=== PATIENT | female | born 1945 | race Caucasian/White ===

== ENCOUNTER 2016-10-17 20:28 | Observation (INO) | payer MEDICARE, OTHER ==
[2016-10-17 22:43] LABS: BASOPHIL 1.1 % (0-2.0); EOSINOPHIL 3.3 % (0-4.5); MCH 28.5 pg (25.7-33.7); MCHC 33.4 g/dl (32.0-36.0); MEAN CELL VOLUME 85.4 fl (80-96); MEAN PLT VOLUME 8.3 fl (7.5-11.1); NEUTROPHILS 50.4 % (42.8-82.8); PLATELET COUNT 272 K/MM3 (134-434); RDW 13.3 % (11.6-15.6); WHITE BLOOD COUNT 8.6 K/mm3 (4.0-10.0)
[2016-10-17 23:21] LABS: ALBUMIN 3.6 g/dl (3.4-5.0); ALK PHOS 131 U/L (45-117); ANION GAP 7 (8-16); BILIRUBIN,TOTAL 0.6 mg/dL (0.2-1.0); CALCIUM 9.2 mg/dL (8.5-10.1); CO2 30 mmol/L (21-32); CREATININE 0.8 mg/dL (0.55-1.02); GLUCOSE,RANDOM 107 mg/dL (74-106); SGOT/AST 22 U/L (15-37); SGPT/ALT 21 U/L (12-78); TOT PROT 6.8 g/dl (6.4-8.2)
--- NOTE | 2016-10-17 23:24 | PDOC ---
History of Present Illness - General Chief Complaint: RX Refill Stated Complaint: INFECTION Time Seen by Provider: 10/17/16 21:22 - History of Present Illness Initial Comments: 10/17/16 23:11 CHIEF COMPLAINT: requires IV antibiotics HISTORY OF PRESENT ILLNESS: 70 yo F presents to ED for IV antibiotics via PICC line. Patient reports that she has had multiple surgeries in the past two months. She reports that on August 08 she fell and she required surgery on the front side of her neck. On September 12 she had a surgery to her cervical spine, but "it became infected" and she had another surgery "to fix it" on October 03. She states that she was admitted to [facility] for 10 days and a PICC line was placed on October 13 so she could receive 7 weeks of IV antibiotics at home. However she has been having problems with the visiting nurses services and they have not been going to her house; therefore she has only received 1 dose of the antibiotics since her discharge from [facility]. AST MEDICAL HISTORY: Denies past medical history FAMILY HISTORY: Denies SOCIAL HISTORY: Denies tobacco, alcohol, illicit drug use. SURGICAL HISTORY: Denies ALLERGIES: No known drug allergies REVIEW OF SYSTEMS General/Constitutional: Denies fever or chills. Denies weakness, weight change. HEENT: Denies change in vision. Denies ear pain or discharge. Denies sore throat. Cardiovascular: Denies chest pain or shortness of breath. Respiratory: Denies cough, wheezing, or hemoptysis. Gastrointestinal: Denies nausea, vomiting, diarrhea or constipation. Denies rectal bleeding. Genitourinary: Denies dysuria, frequency, or change in urination. Musculoskeletal: Denies joint or muscle swelling or pain. Denies neck or back pain. Skin and breasts: Denies rash or easy bruising. Neurologic: Denies headache, vertigo, loss of consciousness, or loss of sensation. PHYSICAL EXAM General Appearance: Well-appearing, appropriately dressed. No apparent distress , no intoxication. HEENT: EOMI, PERRLA, normal ENT inspection, normal voice, TMs normal, pharynx normal. No conjunctival pallor. No photophobia, scleral icterus. Neck: Erythema to operative site. Supple. Trachea midline. No tenderness, rigidity, carotid bruit, stridor, lymphadenopathy, or thyromegaly. Respiratory/Chest: Lungs CTAB. Cardiovascular: RRR. S1, S2. Gastrointestinal/Abdominal: Normal bowel sounds. Abdomen soft, non-distended. No tenderness or rebound tenderness. No organomegaly, pulsatile mass, guarding , hernia, hepatomegaly, splenomegaly. Musculoskeletal/Extremities: Normal inspection. FROM of all extremities, normal capillary refill. Pelvis Stable. No CVA tenderness. No tenderness to extremities, pedal edema, swelling, erythema or deformity. Integumentary: Appropriate color, dry, warm. 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 Fully oriented, alert. Appropriate mood/affect. Motor strength 5/5. No appreciable EOM palsy, facial droop or sensory deficit. Past History - Past Medical History Allergies/Adverse Reactions: Allergies Allergy/AdvReac Type Severity Reaction Status Date / Time No Known Drug Allergies Allergy Verified 10/17/16 22:04 Home Medications: Ambulatory Orders Atorvastatin Ca [Lipitor] 20 mg PO HS 10/17/16 Diazepam [Valium] 5 mg PO DAILY 10/17/16 Docusate Sodium [Colace -] 100 mg PO DAILY 10/17/16 Fluoxetine HCl [Prozac] 20 mg PO DAILY 10/17/16 Hydrochlorothiazide [Hctz -] 12.5 mg PO DAILY 10/17/16 Lactulose (Oral Use) [Cephulac -] 20 gm PO DAILY 10/17/16 Levothyroxine [Synthroid -] 75 mcg PO DAILY 10/17/16 Pantoprazole Sodium [Protonix] 40 mg PO DAILY 10/17/16 Zolpidem Tartrate [Ambien] 10 mg PO DAILY 10/17/16 Diabetes: No (hypoglycemia) GI Disorders: Yes (GASTRITIS) HTN: Yes Thyroid Disease: Yes - Surgical History Abdominal Surgery: Yes Cholecystectomy: Yes - Immunization History Immunization Up to Date: Yes - Psycho/Social/Smoking Cessation Hx Anxiety: No Suicidal Ideation: No Smoking Status: No Smoking History: Never smoked Have you smoked in the past 12 months: No Number of Cigarettes Smoked Daily: 0 Hx Alcohol Use: No Drug/Substance Use Hx: No *Physical Exam - Vital Signs Last Vital Signs Temp Pulse Resp BP Pulse Ox 98.1 F 91 H 18 125/65 98 10/17/16 20:50 10/17/16 20:50 10/17/16 20:50 10/17/16 20:50 10/17/16 20:50 ED Treatment Course - LABORATORY CBC & Chemistry Diagram: 10/17/16 22:35 10/17/16 22:35 - ADDITIONAL ORDERS Additional order review: Laboratory Results 10/17/16 22:35 WBC 8.6 RBC 3.27 L D Hgb 9.3 L D Hct 27.9 L D MCV 85.4 MCH 28.5 MCHC 33.4 RDW 13.3 Plt Count 272 MPV 8.3 Neutrophils % 50.4 Lymphocytes % 35.8 Monocytes % 9.4 Eosinophils % 3.3 Basophils % 1.1 10/17/16 22:35 RBC 3.27 L D MCV 85.4 MCHC 33.4 RDW 13.3 MPV 8.3 Neutrophils % 50.4 Lymphocytes % 35.8 Monocytes % 9.4 Eosinophils % 3.3 Basophils % 1.1 Medical Decision Making - Medical Decision Making 10/18/16 00:00 70 yo F presents to ED for IV antibiotics via PICC line. -CBC, CMP, vanc Labs unremarkable. Patient asymptomatic at this time. Will give IV antibiotics in ER. Discussed case with covering PCP Onesimo. At this time patient does not meet admission criteria, patient is to remain in ED until social work is able to see patient in the morning for outpatient arrangements. -cefepime -vanc Case discussed in detail with oncoming emergency provider including history, physical exam and ancillary studies. In brief, this patient is being seen in the ED for a chief complaint of: needing iv abx I have completed the initial assessment interview note and have ordered the following labs: cbc, cmp, vanc trough I have reviewed the following results: labs Pending results: none Please call the PCP: Tami/Onesimo Plan for disposition as follows: pending social work Oncoming NPKatya Aguirre has assumed care for the patient and will complete the evaluation and treatment. *DC/Admit/Observation/Transfer Diagnosis at time of Disposition: Medication administered - Discharge Dispostion Admit: No - Referrals Referrals: Jacklyn Garrett MD [Primary Care Provider] -
[2016-10-17] MEDS ORDERED: CEFEPIME HCL 2 GM VIAL (RESTRICTED TO ID) IVPB ONE (23:59)
--- NOTE | 2016-10-18 00:03 | PDOC ---
*Physical Exam - Vital Signs Last Vital Signs Temp Pulse Resp BP Pulse Ox 98.1 F 91 H 18 125/65 98 10/17/16 20:50 10/17/16 20:50 10/17/16 20:50 10/17/16 20:50 10/17/16 20:50 ED Treatment Course - LABORATORY CBC & Chemistry Diagram: 10/17/16 22:35 10/17/16 22:35 - ADDITIONAL ORDERS Additional order review: Laboratory Results 10/17/16 10/17/16 22:35 22:35 Sodium 139 Potassium 3.6 Chloride 102 Carbon Dioxide 30 Anion Gap 7 L BUN 22 H Creatinine 0.8 Creat Clearance w eGFR > 60 Random Glucose 107 H Calcium 9.2 Total Bilirubin 0.6 AST 22 ALT 21 D Alkaline Phosphatase 131 H D Total Protein 6.8 Albumin 3.6 Random Vancomycin 5.344 10/17/16 22:35 RBC 3.27 L D MCV 85.4 MCHC 33.4 RDW 13.3 MPV 8.3 Neutrophils % 50.4 Lymphocytes % 35.8 Monocytes % 9.4 Eosinophils % 3.3 Basophils % 1.1 Medical Decision Making - Medical Decision Making 10/18/16 00:02 agree with care from MARY Alexis *DC/Admit/Observation/Transfer Diagnosis at time of Disposition: Medication administered, Skin infection
[2016-10-18] MEDS ORDERED: CEFEPIME 1 GM/100 ML BAG PRE-DOCKED IVPB ONE (00:15)
[2016-10-18] MEDS ORDERED: VANCOMYCIN 1 GRAM (PRE-DOCKED) 250 ML IVPB ONE ×3 (00:19→10:00)
[2016-10-18] MEDS ORDERED: VANCOMYCIN 1,000 MG in DEXTROSE 5%-WATER - 250 ML IVPB SCH ×3 (00:45→22:00)
[2016-10-18] MEDS ORDERED: CEFEPIME 100 ML IVPB ONE ×2 (02:04→11:15)
[2016-10-18] MEDS ORDERED: CEFEPIME HCL 2 GM VIAL (RESTRICTED TO ID) IVPB ONE ×2 (07:05→10:00)
--- NOTE | 2016-10-18 07:30 | PDOC ---
ED Treatment Course - LABORATORY CBC & Chemistry Diagram: 10/17/16 22:35 10/17/16 22:35 - ADDITIONAL ORDERS Additional order review: Laboratory Results 10/17/16 10/17/16 22:35 22:35 Sodium 139 Potassium 3.6 Chloride 102 Carbon Dioxide 30 Anion Gap 7 L BUN 22 H Creatinine 0.8 Creat Clearance w eGFR > 60 Random Glucose 107 H Calcium 9.2 Total Bilirubin 0.6 AST 22 ALT 21 D Alkaline Phosphatase 131 H D Total Protein 6.8 Albumin 3.6 Random Vancomycin 5.344 10/17/16 22:35 RBC 3.27 L D MCV 85.4 MCHC 33.4 RDW 13.3 MPV 8.3 Neutrophils % 50.4 Lymphocytes % 35.8 Monocytes % 9.4 Eosinophils % 3.3 Basophils % 1.1 - Medications Given in the ED: ED Medications Discontinued Medications Generic Name Dose Route Start Last Admin Trade Name Freq PRN Reason Stop Dose Admin Cefepime HCl 1 gm 10/18/16 00:15 10/18/16 02:02 Maxipime 1gm Ivpb Pre-Docked IVPB 10/18/16 00:16 1 gm ONCE ONE Administration Protocol Vancomycin HCl 1,000 mg/ 250 mls @ 250 mls/hr 10/18/16 00:45 10/18/16 00:55 Dextrose IVPB 250 mls/hr BID LACY Administration Protocol Progress Note - Progress Note Progress Note: I have received report from MARY Alexis regarding this patient. Pt's initial chief complaint: antibiotics via PICC line Pt's work up completed prior to sign out: labs Pt treatment given from prior staff: IV cefepime and vanc Pt plan to be completed: Awaiting social work consult Dispo: pending Medical Decision Making - Medical Decision Making A/P: 70 y/o female here for IV abx via PICC line. Pt was seen and evaluated by MARY Alexis. She is currently awaiting social work consult to determine rehab placement/home health aide to administer IV abx. 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 Spoke with Dr. Garrett and he agrees to admission to obs. Fadis Jelena consult *DC/Admit/Observation/Transfer Diagnosis at time of Disposition: Medication administered, Skin infection - Discharge Dispostion Admit: Yes - Referrals Referrals: Jacklyn Garrett MD [Primary Care Provider] - - Patient Instructions - Post Discharge Activity
[2016-10-18 16:01] VITALS: BMI 31.8
[2016-10-18] MEDS ORDERED: ZOLPIDEM TARTRATE 5 MG TABLET PO PRN (16:36)
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
[2016-10-18] MEDS: ACETAMINOPHEN 325 MG TABLET (FP) PO PRN (17:37)
[2016-10-18] MEDS: diazePAM 5 MG TABLET PO SCH (17:40)
--- NOTE | 2016-10-18 17:53 | PN ---
Progress Note (short form) - Note Progress Note: ID note admitted b/c she could not get her home iv antiibotics asked to approve iv antibiotics for this 70 year old female who had recent cervical laminectomy in August with subsequent infection in September requiring repeat surgery October 03. SHe was discharged home on October 12 on vancomycin and cefepime per her surgeon- Dr Farzad Hung. she has been going to the ED at [facility] for infusion, and today came to [facility] I spoke with LUKAS- his nurse [phone] and confirmed that she is taking vancomycin 1 gram bid and cefepime 1 gram bid- I have approved and order these antibiotics for her I have asked her to fax the orders to us Apparently social work is attempting to help set up her antibiotics- would suggest all inquiries regarding her care and duration and type of antibiotics be directed to her surgeon as we have no records here at [facility]. If any acute issues arise she should be transferred back to his care at [facility]
[2016-10-18] MEDS: CEFEPIME 1 GM/100 ML BAG PRE-DOCKED IVPB SCH (21:33)
[2016-10-18] MEDS ORDERED: VANCOMYCIN 1 GRAM (PRE-DOCKED) 1,000 MG/250 ML BAG IVPB ONE (22:00)
[2016-10-18] MEDS: VANCOMYCIN 1 GRAM (PRE-DOCKED) 250 ML IVPB SCH (22:00)
[2016-10-18] MEDS: ATORVASTATIN CA 20 MG TABLET (FP) PO SCH (22:00)
[2016-10-19] MEDS: ACETAMINOPHEN 325 MG TABLET (FP) PO PRN ×2 (05:05→14:38)
[2016-10-19] MEDS: LEVOTHYROXINE NA 75 MCG TABLET (FP) PO SCH (06:00)
[2016-10-19 07:27] LABS: MCH 28.8 pg (25.7-33.7); MCHC 33.6 g/dl (32.0-36.0); MEAN CELL VOLUME 85.8 fl (80-96); MEAN PLT VOLUME 8.1 fl (7.5-11.1); PLATELET COUNT 285 K/MM3 (134-434); RDW 13.1 % (11.6-15.6); WHITE BLOOD COUNT 5.8 K/mm3 (4.0-10.0)
[2016-10-19 07:38] LABS: ALBUMIN 3.3 g/dl (3.4-5.0); ANION GAP 8 (8-16); BILIRUBIN,TOTAL 0.9 mg/dL (0.2-1.0); CALCIUM 8.9 mg/dL (8.5-10.1); CO2 27 mmol/L (21-32); CREATININE 0.8 mg/dL (0.55-1.02); GLUCOSE,RANDOM 110 mg/dL (74-106); SGOT/AST 21 U/L (15-37); SGPT/ALT 19 U/L (12-78)
[2016-10-19 07:47] LABS: ALK PHOS 114 U/L (45-117); THYROID STIMULATING HORMONE 1.18 uIU/ml (0.358-3.74); TOT PROT 6.3 g/dl (6.4-8.2)
[2016-10-19] MEDS: VANCOMYCIN 1 GRAM (PRE-DOCKED) 250 ML IVPB SCH ×2 (09:42→21:22)
[2016-10-19] MEDS: diazePAM 5 MG TABLET PO SCH (09:42)
[2016-10-19] MEDS: CEFEPIME 1 GM/100 ML BAG PRE-DOCKED IVPB SCH ×2 (09:42→21:22)
[2016-10-19] MEDS: PANTOPRAZOLE 40 MG TABLET (FP) PO SCH (09:42)
[2016-10-19] MEDS: FLUoxetine HCL 20 MG CAPSULE (FP) PO SCH (09:42)
[2016-10-19] MEDS: DOCUSATE SODIUM 100 MG CAPSULE (FP) PO SCH (09:42)
[2016-10-19] MEDS: HYDROCHLOROTHIAZIDE 12.5 MG CAPSULE (FP) PO SCH (09:42)
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
--- NOTE | 2016-10-19 11:05 | PN ---
Progress Note, Physician Chief Complaint: ID Discussed with Dr Garrett Vancomycin and Cefepime - Current Medication List Current Medications: Active Medications Acetaminophen (Tylenol -) 650 mg PO Q6H PRN PRN Reason: FEVER OR PAIN Last Admin: 10/19/16 05:05 Dose: 650 mg Atorvastatin Calcium (Lipitor -) 20 mg PO HS [facility] Last Admin: 10/18/16 22:00 Dose: 20 mg Cefepime HCl (Maxipime 1gm Ivpb Pre-Docked) 1 gm IVPB BID [facility] PRN Reason: Protocol Last Admin: 10/19/16 09:42 Dose: 1 gm Diazepam (Valium -) 5 mg PO DAILY [facility] Last Admin: 10/19/16 09:42 Dose: 5 mg Docusate Sodium (Colace -) 100 mg PO DAILY [facility] Last Admin: 10/19/16 09:42 Dose: 100 mg Fluoxetine HCl (Prozac -) 20 mg PO DAILY [facility] Last Admin: 10/19/16 09:42 Dose: 20 mg Hydrochlorothiazide (Hctz -) 12.5 mg PO DAILY [facility] Last Admin: 10/19/16 09:42 Dose: 12.5 mg Vancomycin HCl (Vancomycin (Pre-Docked)) 250 mls @ 166.667 mls/hr IVPB BID [facility] PRN Reason: Protocol Last Admin: 10/19/16 09:42 Dose: 166.667 mls/hr Levothyroxine Sodium (Synthroid -) 75 mcg PO DAILY@0700 [facility] Last Admin: 10/19/16 06:00 Dose: 75 mcg Pantoprazole Sodium (Protonix -) 40 mg PO DAILY [facility] Last Admin: 10/19/16 09:42 Dose: 40 mg Zolpidem Tartrate (Ambien -) 5 mg PO HS PRN PRN Reason: INSOMNIA - Objective Vital Signs: Vital Signs Temperature 98.0 F 10/19/16 10:00 Pulse Rate 76 10/19/16 10:00 Respiratory Rate 18 10/19/16 10:00 Blood Pressure 143/68 10/19/16 10:00 O2 Sat by Pulse Oximetry (%) 96 10/19/16 00:35 HENT: Yes: WNL, Atraumatic Neck: Yes: Other (Dressing no erythema drainage mild tenderness around incision) Cardiovascular: Yes: S1, S2 Respiratory: Yes: WNL, Regular, CTA Bilaterally Gastrointestinal: Yes: WNL, Normal Bowel Sounds, Soft. No: Tenderness, Tenderness, Epigastrium Edema: No Labs: CBC, BMP 10/19/16 05:35 10/19/16 05:35 Assessment/Plan Laboratory Tests 10/17/16 10/19/16 10/19/16 22:35 05:35 05:35 WBC 5.8 D Hgb 9.5 L Hct 28.3 L Plt Count 285 BUN 15 D Creatinine 0.8 Random Vancomycin 5.344 Assessment Plan for total 8 weeks therapy in hospital and residential ( placement) Plan Based on low vancomycin trough 1 gr q12 with levels f/u Antibiotic as previously prescribed Jelena PARMAR
[2016-10-19] MEDS ORDERED: MAGNESIUM HYDROX 2400MG/30ML ORAL SUSPENSION 30 ML CUP PO ONE (21:00)
[2016-10-19] MEDS: ATORVASTATIN CA 20 MG TABLET (FP) PO SCH (21:23)
--- NOTE | 2016-10-19 21:38 | PN ---
Progress Note, Physician Chief Complaint: awake alert unable to obtain medical records to evaluate why patient is on iv abx - Current Medication List Current Medications: Active Medications Acetaminophen (Tylenol -) 650 mg PO Q6H PRN PRN Reason: FEVER OR PAIN Last Admin: 10/19/16 14:38 Dose: 650 mg Atorvastatin Calcium (Lipitor -) 20 mg PO HS [facility] Last Admin: 10/19/16 21:23 Dose: 20 mg Cefepime HCl (Maxipime 1gm Ivpb Pre-Docked) 1 gm IVPB BID [facility] PRN Reason: Protocol Last Admin: 10/19/16 21:22 Dose: 1 gm Diazepam (Valium -) 5 mg PO DAILY [facility] Last Admin: 10/19/16 09:42 Dose: 5 mg Docusate Sodium (Colace -) 100 mg PO DAILY [facility] Last Admin: 10/19/16 09:42 Dose: 100 mg Fluoxetine HCl (Prozac -) 20 mg PO DAILY [facility] Last Admin: 10/19/16 09:42 Dose: 20 mg Hydrochlorothiazide (Hctz -) 12.5 mg PO DAILY [facility] Last Admin: 10/19/16 09:42 Dose: 12.5 mg Vancomycin HCl (Vancomycin (Pre-Docked)) 250 mls @ 250 mls/hr IVPB BID [facility] PRN Reason: Protocol Last Admin: 10/19/16 21:22 Dose: 250 mls/hr Levothyroxine Sodium (Synthroid -) 75 mcg PO DAILY@0700 [facility] Last Admin: 10/19/16 06:00 Dose: 75 mcg Pantoprazole Sodium (Protonix -) 40 mg PO DAILY [facility] Last Admin: 10/19/16 09:42 Dose: 40 mg Polyethylene Glycol (Miralax (For Daily Use) -) 17 gm PO DAILY [facility] Zolpidem Tartrate (Ambien -) 5 mg PO HS PRN PRN Reason: INSOMNIA Last Admin: 10/19/16 21:23 Dose: 5 mg - Objective Vital Signs: Vital Signs Temperature 97.9 F 10/19/16 19:00 Pulse Rate 78 10/19/16 19:00 Respiratory Rate 20 10/19/16 19:00 Blood Pressure 112/66 10/19/16 19:00 O2 Sat by Pulse Oximetry (%) 96 10/19/16 16:00 Constitutional: Yes: No Distress Eyes: Yes: WNL HENT: Yes: WNL Neck: Yes: Other Cardiovascular: Yes: WNL Respiratory: Yes: WNL Gastrointestinal: Yes: WNL Genitourinary: Yes: WNL Musculoskeletal: Yes: WNL Extremities: Yes: WNL Edema: No Peripheral Pulses WNL: Yes Integumentary: Yes: Rash Wound/Incision: Yes: Dressing Dry and Intact (POSTERIOR NECK) Neurological: Yes: WNL ...Motor Strength: WNL Psychiatric: Yes: WNL Labs: CBC, BMP 10/19/16 05:35 10/19/16 05:35 Problem List - Problems (1) Medication administered Code(s): [id number] - (2) Skin infection Code(s): L08.9 - LOCAL INFECTION OF THE SKIN AND SUBCUTANEOUS TISSUE, UNSP Assessment/Plan IV ABX PICC LINE SNF PLACEMENT CHECK LABS
[2016-10-20] MEDS: LEVOTHYROXINE NA 75 MCG TABLET (FP) PO SCH (06:08)
--- NOTE | 2016-10-20 07:42 | PN ---
Physical Exam: SUBJECTIVE: Patient to be seen and examined by me this AM - currently received 1g cefepime, 1 g vanc BID via PICC per 8 week course for site infection - Still endorses back pain and shoulder pain from surgical site, as well as some shooting pains down back of leg, possibly sciatica. Poor sleep overnight. Denies fever, cough, SOB, new rashes, diarrhea, N/V - No major overnight events. Awaiting placement in SNF. - Afebrile, No WBC elevation OBJECTIVE: Vital Signs Period Temp Pulse Resp BP Sys/Pryor Pulse Ox Last 24 Hr 97.9 F-98.2 F 72-78 16-20 112-150/60-72 96-97 GENERAL: Awake, alert, and fully oriented, in no acute distress. HEAD: Normal with no signs of trauma. EYES: sclera anicteric, conjunctiva clear. No lid lag. EARS, NOSE, THROAT: Ears normal, nares patent, oropharynx clear without exudates. Moist mucous membranes. NECK: Limited motion due to pain from cervical surgery. Pt continues to endorse pain radiating along L shoulder and down L back, but slightly improved. No lymphadenopathy, JVD, or masses. LUNGS: Breath sounds equal, clear to auscultation bilaterally. No wheezes, and no crackles. No accessory muscle use. HEART: Regular rate and rhythm, normal S1 and S2 without murmur, rub or gallop. ABDOMEN: Soft, nontender, globular. Normoactive bowel sounds, no guarding, no rebound, no masses. No hepatomegaly or splenomegaly. Midline incision scar and small puncture scar on R subcostal region. MUSCULOSKELETAL: No CVA tenderness. UPPER EXTREMITIES: 2+ pulses, warm, well-perfused. No cyanosis. No clubbing. Cap refill <2 seconds. No peripheral edema. PICC line in place in R upper arm. No erythema, induration or tenderness to palpation. LOWER EXTREMITIES: 2+ pulses, warm, well-perfused. No calf tenderness. No peripheral edema. negative myriam's sign NEUROLOGICAL: Cranial nerves II-XII grossly intact. Normal speech. Gait not assessed. PSYCHIATRIC: Cooperative. Good eye contact. Appropriate mood and affect. SKIN: Warm, dry, normal turgor Laboratory Results - last 24 hr CBC, BMP 10/19/16 05:35 10/19/16 05:35 10/19/16 10/19/16 10/19/16 05:35 05:35 05:35 WBC 5.8 D RBC 3.30 L Hgb 9.5 L Hct 28.3 L MCV 85.8 MCH 28.8 MCHC 33.6 RDW 13.1 Plt Count 285 MPV 8.1 Sodium 139 Potassium 3.6 Chloride 104 Carbon Dioxide 27 Anion Gap 8 BUN 15 D Creatinine 0.8 Creat Clearance w eGFR > 60 Random Glucose 110 H Hemoglobin A1c % 6.4 H D Calcium 8.9 Total Bilirubin 0.9 D AST 21 ALT 19 Alkaline Phosphatase 114 Total Protein 6.3 L Albumin 3.3 L TSH 1.18 Active Medications Generic Name Dose Route Start Last Admin Trade Name Freq PRN Reason Stop Dose Admin Acetaminophen 650 mg 10/18/16 16:36 10/19/16 14:38 Tylenol - PO 650 mg Q6H PRN Administration FEVER OR PAIN Atorvastatin Calcium 20 mg 10/18/16 22:00 10/19/16 21:23 Lipitor - PO 20 mg HS [facility] Administration Cefepime HCl 1 gm 10/18/16 22:00 10/19/16 21:22 Maxipime 1gm Ivpb Pre-Docked IVPB 1 gm BID [facility] Administration Protocol Diazepam 5 mg 10/18/16 16:45 10/19/16 09:42 Valium - PO 5 mg DAILY [facility] Administration Docusate Sodium 100 mg 10/19/16 10:00 10/19/16 09:42 Colace - PO 100 mg DAILY [facility] Administration Fluoxetine HCl 20 mg 10/19/16 10:00 10/19/16 09:42 Prozac - PO 20 mg DAILY [facility] Administration Hydrochlorothiazide 12.5 mg 10/19/16 10:00 10/19/16 09:42 Hctz - PO 12.5 mg DAILY [facility] Administration Vancomycin HCl 250 mls @ 250 mls/hr 10/19/16 22:00 10/19/16 21:22 Vancomycin (Pre-Docked) IVPB 250 mls/hr BID [facility] Administration Protocol Levothyroxine Sodium 75 mcg 10/19/16 07:00 10/20/16 06:08 Synthroid - PO 75 mcg DAILY@0700 [facility] Administration Pantoprazole Sodium 40 mg 10/19/16 10:00 10/19/16 09:42 Protonix - PO 40 mg DAILY [facility] Administration Polyethylene Glycol 17 gm 10/20/16 10:00 Miralax (For Daily Use) - PO DAILY [facility] Zolpidem Tartrate 5 mg 10/18/16 16:36 10/19/16 21:23 Ambien - PO 5 mg HS PRN Administration INSOMNIA No pending micro ASSESSMENT/PLAN: Assessment: 70 yo F w/ pmh of multiple C-spine surgeries (most recently complicated by site infection), hypothyroidism, who presented to ED for IV infusion of Abx due to inability to administer Abx at home. On exam, posterior cervical incision w/ trace erythema and slight tenderness to palpation still. No other major symptoms or complaints. Currently awaiting placement in SNF for continuation of 8 week abx course. Consider transfer to [facility] for management by primary surgical team if clinical condition worsens. Plan: #Surgical site infection - Vanc 1mg BID IV w/ repeat trough - Continue 8 week course of Vanc/Cefepime per OSH surgical team - Awaiting placement in SNF - Monitor for fever, WBC - If clinical condition worsens, consider transfer to [facility] for further management per surgical team ID team will no longer follow this patient, as no further management is needed currently Noman Zamudio MD, PGY1 Discussed with attending, Dr. Gonzalez Problem List - Problems (1) Medication administered Code(s): SXA4437 - (2) Skin infection Code(s): L08.9 - LOCAL INFECTION OF THE SKIN AND SUBCUTANEOUS TISSUE, UNSP Visit type - Emergency Visit Emergency Visit: No - New Patient This patient is new to me today: No - Critical Care Critical Care patient: No
[2016-10-20] MEDS: diazePAM 5 MG TABLET PO SCH (09:53)
[2016-10-20] MEDS: FLUoxetine HCL 20 MG CAPSULE (FP) PO SCH (09:53)
[2016-10-20] MEDS: DOCUSATE SODIUM 100 MG CAPSULE (FP) PO SCH (09:54)
[2016-10-20] MEDS: HYDROCHLOROTHIAZIDE 12.5 MG CAPSULE (FP) PO SCH (09:54)
[2016-10-20] MEDS: CEFEPIME 1 GM/100 ML BAG PRE-DOCKED IVPB SCH (09:54)
[2016-10-20] MEDS: PANTOPRAZOLE 40 MG TABLET (FP) PO SCH (09:54)
[2016-10-20] MEDS ORDERED: POLYETHYLENE GLYCOL 3350 119 GM BTL PO SCH (10:00)
[2016-10-20] MEDS: VANCOMYCIN 1 GRAM (PRE-DOCKED) 250 ML IVPB SCH (10:00)
--- NOTE | 2016-10-20 17:31 | DS ---
Physical Examination Vital Signs: Vital Signs Temperature 97.8 F 10/20/16 15:26 Pulse Rate 90 10/20/16 15:26 Respiratory Rate 18 10/20/16 15:26 Blood Pressure 119/72 10/20/16 15:26 O2 Sat by Pulse Oximetry (%) 96 10/20/16 05:32 Constitutional: Yes: No Distress Eyes: Yes: WNL HENT: Yes: WNL Neck: Yes: WNL Cardiovascular: Yes: WNL Respiratory: Yes: WNL Gastrointestinal: Yes: WNL Musculoskeletal: Yes: WNL Extremities: Yes: WNL Edema: No Peripheral Pulses WNL: Yes Integumentary: Yes: WNL Wound/Incision: Yes: Clean/Dry Neurological: Yes: WNL ...Motor Strength: WNL Psychiatric: Yes: WNL Labs: CBC, BMP 10/19/16 05:35 10/19/16 05:35 Discharge Summary Reason For Visit: MEDICATION ADMINISTERED,INFECTION OF SKIN Current Active Problems Medication administered (Acute) Skin infection (Acute) Procedures: Principal: labs/cx Hospital Course: admitted for iv abx skin cellulitis infection Condition: Fair - Instructions Diet, Activity, Other Instructions: reg Referrals: Jacklyn Garrett MD [Primary Care Provider] - Disposition: [facility] - Home Medications Comprehensive Discharge Medication List: Ambulatory Orders Atorvastatin Ca [Lipitor] 20 mg PO HS 10/17/16 Diazepam [Valium] 5 mg PO DAILY 10/17/16 Docusate Sodium [Colace -] 100 mg PO DAILY 10/17/16 Fluoxetine HCl [Prozac] 20 mg PO DAILY 10/17/16 Hydrochlorothiazide [Hctz -] 12.5 mg PO DAILY 10/17/16 Lactulose (Oral Use) [Cephulac -] 20 gm PO DAILY 10/17/16 Levothyroxine [Synthroid -] 75 mcg PO DAILY 10/17/16 Pantoprazole Sodium [Protonix] 40 mg PO DAILY 10/17/16 Zolpidem Tartrate [Ambien] 10 mg PO DAILY 10/17/16
[2016-10-20 19:51] VITALS: BP 109/71; PULSE 91; TEMP 98.5
== END 2016-10-20 21:29 ==
LOC: JER 20:28 → JERBED 10-18 11:34 → J5S 10-18 13:45
PROVIDERS: ADMIT Family Medicine; ATTEND Family Medicine
DX: Z79.2 Long term (current) use of antibiotics (principal); L08.89 Other specified local infections of the skin and subcutaneous tissue; I10 Essential (primary) hypertension; E03.9 Hypothyroidism, unspecified
CPT/HCPCS: 36415; 80053; 83036; 84443; 85025; 85027; 96365; 96366; 96376; 99285-25; G0378; G0480

== ENCOUNTER 2017-07-02 20:08 | Observation (INO) | payer MEDICARE, OTHER ==
[2017-07-02 20:26] VITALS: BMI 32.2
[2017-07-02] MEDS ORDERED: ACETAMINOPHEN 1000 MG/100 ML VIAL (NON FORMULARY) IVPB ONE (23:14)
--- NOTE | 2017-07-02 23:15 | PDOC ---
Attending Attestation - HPI HPI: 07/02/17 23:16 The patient is a 71 year old female with history of hemorrhoids, hypertension, hyperlipidemia, who presents to the ED complaining of approximately 4 days of bright red blood per rectum with pain with bowel movements. No fever or chills. No chest pain or shortness of breath. No vomiting or diarrhea. - Medical Decision Making 07/02/17 23:18 Documentation prepared by Estelle Higginbotham, acting as medical records supervisor for Ramya Boudreaux MD. <Estelle Higginbotham - Last Filed: 07/02/17 23:16> - Resident Resident Name: Janusz Shen - ED Attending Attestation I have performed the following: I have examined & evaluated the patient, The case was reviewed & discussed with the resident, I agree w/resident's findings & plan, Exceptions are as noted - Physicial Exam PE: 07/03/17 17:28 i AGREE WITH RESIDENT'S PHYSICAL ASSESSMENT - Medical Decision Making 07/02/17 23:40 IMP pt has hemorrhoids but also LLQ pain and loose stools IMP diverticulitis plan ct scan,labs <Ramya Boudreaux - Last Filed: 07/03/17 17:29>
[2017-07-02] MEDS ORDERED: ACETAMINOPHEN INJECTION 100 ML IVPB ONE (23:18)
--- NOTE | 2017-07-02 23:37 | PDOC ---
History of Present Illness - General Chief Complaint: Rectal Bleed Stated Complaint: BLOODY STOOL Time Seen by Provider: 07/02/17 23:03 History Source: Patient Exam Limitations: No Limitations - History of Present Illness Initial Comments: 07/02/17 23:30 Patient is a 71F with history of HTN, hypothyroidism chronic back and neck pain , HLD here today with 4 days of rectal bleeding and abdominal pain. The patient reports having bright red blood in her stools. She reports pain with defecation. She has pain in her LLQ as well for these four days. She describes the blood in her stool as bright red blood with some dark streaks. She describes her bowel movements as watery. Denies pain with urination. Endorses nausea, denies vomiting. Denies chest pain and shortness of breath. Last bowel movement today. PSH: Open gallbladder removal, Past History - Past Medical History Allergies/Adverse Reactions: Allergies Allergy/AdvReac Type Severity Reaction Status Date / Time No Known Drug Allergies Allergy Verified 07/02/17 20:23 Home Medications: Ambulatory Orders Atorvastatin Ca [Lipitor] 20 mg PO HS 10/17/16 Diazepam [Valium] 5 mg PO DAILY 10/17/16 Docusate Sodium [Colace -] 100 mg PO DAILY 10/17/16 Fluoxetine HCl [Prozac] 20 mg PO DAILY 10/17/16 Hydrochlorothiazide [Hctz -] 12.5 mg PO DAILY 10/17/16 Lactulose (Oral Use) [Cephulac -] 20 gm PO DAILY 10/17/16 Levothyroxine [Synthroid -] 75 mcg PO DAILY 10/17/16 Pantoprazole Sodium [Protonix] 40 mg PO DAILY 10/17/16 Zolpidem Tartrate [Ambien] 10 mg PO DAILY 10/17/16 Acetaminophen [Tylenol .Regular Strength -] 650 mg PO Q6H PRN #120 tablet Atorvastatin Ca [Lipitor] 20 mg PO HS #30 tablet 10/20/16 Cefepime [Maxipime 1Gm Ivpb Pre-Docked] 1 gm IVPB BID #120 bag 10/20/16 Diazepam [Valium] 5 mg PO DAILY #30 tablet MDD 1 10/20/16 Docusate Sodium [Colace -] 100 mg PO DAILY #30 cap 10/20/16 Fluoxetine HCl [Prozac -] 20 mg PO DAILY #30 tab 10/20/16 Hydrochlorothiazide [Hctz -] 12.5 mg PO DAILY #30 cap 10/20/16 Levothyroxine [Synthroid -] 75 mcg PO DAILY@0700 #30 tablet 10/20/16 Pantoprazole Sodium [Protonix -] 40 mg PO DAILY #30 tab 10/20/16 Polyethylene Glycol 3350 [Miralax 119 gm Btl -] 17 gm PO DAILY #1 bottle Vancomycin 1,000 mg IVPB BID #120 vial 10/20/16 Zolpidem Tartrate [Ambien] 5 mg PO HS PRN #0 tablet MDD 1 10/20/16 Diabetes: No (hypoglycemia) GI Disorders: Yes (GASTRITIS) HTN: Yes Thyroid Disease: Yes - Surgical History Abdominal Surgery: Yes Cholecystectomy: Yes - Immunization History Immunization Up to Date: Yes - Suicide/Smoking/Psychosocial Hx Smoking Status: No Smoking History: Never smoked Have you smoked in the past 12 months: No Number of Cigarettes Smoked Daily: 0 Hx Alcohol Use: No Drug/Substance Use Hx: No Review of Systems - Review of Systems Comments:: 07/02/17 23:37 GENERAL/CONSTITUTIONAL: No fever or chills. No weakness. HEAD, EYES, EARS, NOSE AND THROAT: No change in vision. No sore throat. CARDIOVASCULAR: No chest pain or shortness of breath RESPIRATORY: No cough, wheezing, or hemoptysis. GASTROINTESTINAL: No nausea, vomiting, diarrhea or constipation. GENITOURINARY: No dysuria, frequency, or change in urination. MUSCULOSKELETAL: No joint or muscle swelling or pain. Positive for neck and back pain. SKIN: No rash NEUROLOGIC: No headache, vertigo, loss of consciousness, or change in strength/ sensation. HEMATOLOGIC/LYMPHATIC: No anemia, easy bleeding, or history of blood clots. ALLERGIC/IMMUNOLOGIC: No hives or skin allergy. *Physical Exam - Vital Signs Last Vital Signs Temp Pulse Resp BP Pulse Ox 98.1 F 87 18 139/85 100 07/02/17 20:20 07/02/17 20:20 07/02/17 20:20 07/02/17 20:20 07/02/17 20:20 - Physical Exam Comments: 07/02/17 23:38 GENERAL: Awake, alert, and fully oriented, in no acute distress HEAD: No signs of trauma, normocephalic, atraumatic EYES: PERRLA, EOMI, sclera anicteric, conjunctiva clear ENT: Auricles normal inspection, hearing grossly normal, nares patent, oropharynx clear without exudates. Moist mucosa NECK: Normal ROM, supple, no lymphadenopathy, JVD, or masses LUNGS: No distress, speaks full sentences, clear to auscultation bilaterally HEART: Regular rate and rhythm, normal S1 and S2, no murmurs, rubs or gallops, peripheral pulses normal and equal bilaterally. ABDOMEN: Soft, tender in LLQ, positive voluntary guarding. RECTAL: No kim blood or melena. Large hemorrhoid from 12 to 6 o'clock. Tender. EXTREMITIES: Normal inspection, Normal range of motion, no edema. No clubbing or cyanosis. NEUROLOGICAL: Cranial nerves II through XII grossly intact. Normal speech, normal gait, no focal sensorimotor deficits SKIN: Warm, Dry, normal turgor, no rashes or lesions noted. ED Treatment Course - LABORATORY CBC & Chemistry Diagram: 07/02/17 23:20 07/02/17 23:20 - RADIOLOGY Radiology Studies Ordered: Category Date Time Status ABDOMEN & PELVIS CT WITH CONTR [CT] Stat CT Scan 07/02/17 23:30 Ordered - Medications Given in the ED: ED Medications Discontinued Medications Generic Name Dose Route Start Last Admin Trade Name Tri PRN Reason Stop Dose Admin Acetaminophen 1,000 mg 07/02/17 23:14 07/02/17 23:29 Ofirmev Injection - IVPB 07/02/17 23:15 1,000 mg ONCE ONE Administration Medical Decision Making - Medical Decision Making 07/02/17 23:39 Patient is 71F with history of htn, hypothyroidism, hld, hemorrhoids here today complaining of rectal bleeding and abdominal pain. Vital signs stable and normal. Tender to palpation in LLQ, tender in rectum. DDx includes, but is not limited to: hemorrhoids, diverticulitis, diverticular bleed, colitis. Will treat with tylenol. Will evaluate with cbc, cmp, lipase, ua, ekg, ct abd/pelvis with iv contrast. 07/02/17 23:49 Laboratory Tests 07/02/17 07/02/17 23:20 23:20 WBC 12.0 H D Hgb 12.1 D Hct 35.3 D Plt Count 326 Stool Occult Blood Negative CBC shows leukocytosis with lymphocytic predominance. Stool for occult blood negative. CMP pending. Signed out to Dr Grider. *DC/Admit/Observation/Transfer Diagnosis at time of Disposition: Abdominal pain - Discharge Dispostion Condition at time of disposition: Stable - Referrals Referrals: Erasmo Srinivasan MD [Primary Care Provider] - - Patient Instructions - Post Discharge Activity
[2017-07-02 23:38] LABS: BASO % 0.7 % (0-2.0); EOS % 1.8 % (0-4.5); HEMATOCRIT 35.3 % (32.4-45.2); HEMOGLOBIN 12.1 GM/dL (10.7-15.3); LYMPH % 45.1 % (8-40); MCHC 34.3 g/dl (32.0-36.0); MEAN CELL VOLUME 87.5 fl (80-96); MEAN PLT VOLUME 9.1 fl (7.5-11.1); MONO % 6.1 % (3.8-10.2); NEUT % 46.3 % (42.8-82.8); PLATELET COUNT 326 K/MM3 (134-434); RBC 4.04 M/mm3 (3.60-5.2); RDW 12.6 % (11.6-15.6)
[2017-07-03 00:29] LABS: ALBUMIN 3.9 g/dl (3.4-5.0); ANION GAP 8 (8-16); BLOOD UREA NITROGEN 37 mg/dL (7-18); CALCIUM 8.7 mg/dL (8.5-10.1); CHLORIDE 107 mmol/L (98-107); CO2 26 mmol/L (21-32); CREATININE 1.5 mg/dL (0.55-1.02); GLUCOSE,RANDOM 109 mg/dL (74-106); POTASSIUM 3.5 mmol/L (3.5-5.1); SGOT/AST 19 U/L (15-37); SGPT/ALT 20 U/L (12-78); SODIUM 141 mmol/L (136-145)
[2017-07-03 00:32] LABS: ALK PHOS 125 U/L (45-117); BILIRUBIN,TOTAL 0.4 mg/dL (0.2-1.0); LIPASE 294 U/L (73-393)
[2017-07-03] MEDS ORDERED: SODIUM CHLORIDE 1,000 ML IV STA (01:11)
[2017-07-03] MEDS ORDERED: LACTATED RINGERS SOLUTION 1000 ML INFUS.BAG IV ONE (01:12)
[2017-07-03 04:59] LABS: CHLORIDE 110 mmol/L (98-107); POTASSIUM 3.6 mmol/L (3.5-5.1); SODIUM 143 mmol/L (136-145)
[2017-07-03 05:19] LABS: ALBUMIN 3.5 g/dl (3.4-5.0); ALK PHOS 104 U/L (45-117); ANION GAP 7 (8-16); BILIRUBIN,TOTAL 0.4 mg/dL (0.2-1.0); BLOOD UREA NITROGEN 34 mg/dL (7-18); CALCIUM 8.6 mg/dL (8.5-10.1); CO2 26 mmol/L (21-32); CREATININE 1.4 mg/dL (0.55-1.02); GLUCOSE,RANDOM 101 mg/dL (74-106); SGOT/AST 18 U/L (15-37); SGPT/ALT 18 U/L (12-78); TOT PROT 6.2 g/dl (6.4-8.2)
--- NOTE | 2017-07-03 06:18 | PDOC ---
*Physical Exam - Vital Signs Last Vital Signs Temp Pulse Resp BP Pulse Ox 98.1 F 87 18 139/85 100 07/02/17 20:20 07/02/17 20:20 07/02/17 20:20 07/02/17 20:20 07/02/17 20:20 ED Treatment Course - LABORATORY CBC & Chemistry Diagram: 07/02/17 23:20 07/03/17 04:15 - ADDITIONAL ORDERS Additional order review: Laboratory Results 07/03/17 07/02/17 07/02/17 04:15 23:57 23:20 Sodium 143 141 Potassium 3.6 3.5 Chloride 110 H 107 Carbon Dioxide 26 26 Anion Gap 7 L 8 BUN 34 H 37 H Creatinine 1.4 H 1.5 H Creat Clearance w eGFR 37.07 34.23 Random Glucose 101 109 H Calcium 8.6 8.7 Total Bilirubin 0.4 0.4 D AST 18 19 ALT 18 20 Alkaline Phosphatase 104 125 H Total Protein 6.2 L 7.0 Albumin 3.5 3.9 Lipase 294 Stool Occult Blood Negative 07/02/17 23:20 Sodium Cancelled Potassium Cancelled Chloride Cancelled Carbon Dioxide Cancelled Anion Gap Cancelled BUN Cancelled Creatinine Cancelled Creat Clearance w eGFR Cancelled Random Glucose Cancelled Calcium Cancelled Total Bilirubin Cancelled AST Cancelled ALT Cancelled Alkaline Phosphatase Cancelled Total Protein Cancelled Albumin Cancelled Lipase Cancelled Stool Occult Blood 07/02/17 23:20 RBC 4.04 D MCV 87.5 MCHC 34.3 RDW 12.6 MPV 9.1 D Neutrophils % 46.3 Lymphocytes % 45.1 H D Monocytes % 6.1 Eosinophils % 1.8 Basophils % 0.7 - RADIOLOGY Radiology Studies Ordered: Category Date Time Status ABDOMEN & PELVIS CT W/O CONTR [CT] Stat CT Scan 07/03/17 05:34 Taken TRANSVAGINAL ULTRASOUND US [US] Stat Ultrasound 07/03/17 06:09 Ordered - Medications Given in the ED: ED Medications Discontinued Medications Generic Name Dose Route Start Last Admin Trade Name Freq PRN Reason Stop Dose Admin Acetaminophen 1,000 mg 07/02/17 23:14 07/02/17 23:29 Ofirmev Injection - IVPB 07/02/17 23:15 1,000 mg ONCE ONE Administration Sodium Chloride 1,000 mls @ 1,000 mls/hr 07/03/17 01:11 07/03/17 02:11 Normal Saline - IV 07/03/17 02:10 Not Given ASDIR STA Lactated Ringer's 1,000 ml 07/03/17 01:12 07/03/17 01:34 Lactated Ringers Solution IV 07/03/17 01:13 1,000 ml NOW ONE Administration Medical Decision Making - Medical Decision Making 71 year old female presenting with lower abdominal pain worse on the left and BRBPR with positive hemorrhoids, negative fecal occult blood, and CT abdomen demonstrating 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 CT was performed without contrast because creatinine remained elevated. Patient signed out to Dr. Doyle pending abdominal US and likely DC home. 07/03/17 06:14 *DC/Admit/Observation/Transfer Diagnosis at time of Disposition: Abdominal pain - Discharge Dispostion Condition at time of disposition: Stable - Referrals Referrals: Erasmo Srinivasan MD [Primary Care Provider] - - Patient Instructions - Post Discharge Activity
[2017-07-03 07:53] VITALS: PULSE 73; TEMP 98
--- NOTE | 2017-07-03 08:20 | PDOC ---
*Physical Exam - Vital Signs Last Vital Signs Temp Pulse Resp BP Pulse Ox 98 F 73 18 132/68 97 07/03/17 07:51 07/03/17 07:51 07/03/17 07:51 07/03/17 07:51 07/03/17 07:51 - Physical Exam Comments: 07/03/17 08:18 vital signs stable, Abdominal exam with some discomfort but no guarding or rebound or peritoneal findings ED Treatment Course - LABORATORY CBC & Chemistry Diagram: 07/02/17 23:20 07/03/17 04:15 - ADDITIONAL ORDERS Additional order review: Laboratory Results 07/03/17 07/02/17 07/02/17 04:15 23:57 23:20 Sodium 143 141 Potassium 3.6 3.5 Chloride 110 H 107 Carbon Dioxide 26 26 Anion Gap 7 L 8 BUN 34 H 37 H Creatinine 1.4 H 1.5 H Creat Clearance w eGFR 37.07 34.23 Random Glucose 101 109 H Calcium 8.6 8.7 Total Bilirubin 0.4 0.4 D AST 18 19 ALT 18 20 Alkaline Phosphatase 104 125 H Total Protein 6.2 L 7.0 Albumin 3.5 3.9 Lipase 294 Stool Occult Blood Negative 07/02/17 23:20 Sodium Cancelled Potassium Cancelled Chloride Cancelled Carbon Dioxide Cancelled Anion Gap Cancelled BUN Cancelled Creatinine Cancelled Creat Clearance w eGFR Cancelled Random Glucose Cancelled Calcium Cancelled Total Bilirubin Cancelled AST Cancelled ALT Cancelled Alkaline Phosphatase Cancelled Total Protein Cancelled Albumin Cancelled Lipase Cancelled Stool Occult Blood 07/02/17 23:20 RBC 4.04 D MCV 87.5 MCHC 34.3 RDW 12.6 MPV 9.1 D Neutrophils % 46.3 Lymphocytes % 45.1 H D Monocytes % 6.1 Eosinophils % 1.8 Basophils % 0.7 - Medications Given in the ED: ED Medications Discontinued Medications Generic Name Dose Route Start Last Admin Trade Name Freq PRN Reason Stop Dose Admin Acetaminophen 1,000 mg 07/02/17 23:14 07/02/17 23:29 Ofirmev Injection - IVPB 07/02/17 23:15 1,000 mg ONCE ONE Administration Sodium Chloride 1,000 mls @ 1,000 mls/hr 07/03/17 01:11 07/03/17 02:11 Normal Saline - IV 07/03/17 02:10 Not Given ASDIR STA Lactated Ringer's 1,000 ml 07/03/17 01:12 07/03/17 01:34 Lactated Ringers Solution IV 07/03/17 01:13 1,000 ml NOW ONE Administration Medical Decision Making - Medical Decision Making 07/03/17 08:18 Received signout on this 71-year-old female who presented with abdominal pain and rectal bleeding. Hemodynamically stable, hemoglobin normal, creatinine 1.4 which is slightly elevated from prior about one year ago. CT of the abdomen and pelvis showed 7.4 cm teratoma, awaiting ultrasound to rule out torsion. Given persistence of symptoms and further workup, will place patient on observation until torsion is ruled out, dispo accordingly. 07/03/17 10:28 sono confirms L dermoid but no comment on flow. Discussed with radiology and will further interpret. Pt remains more comfortable. *DC/Admit/Observation/Transfer Diagnosis at time of Disposition: Abdominal pain Qualifiers: Abdominal location: generalized Qualified Code(s): R10.84 - Generalized abdominal pain Ovarian teratoma Qualifiers: Laterality: left Qualified Code(s): D27.1 - Benign neoplasm of left ovary - Discharge Dispostion Condition at time of disposition: Stable Admit: Yes - Referrals - Patient Instructions - Post Discharge Activity
[2017-07-03 08:21] LABS: URINE APPEARANCE CLEAR; URINE BILIRUBIN NEGATIVE (<2.0 mg/dL); URINE BLOOD NEGATIVE (NEGATIVE); URINE COLOR STRAW; URINE GLUCOSE (UA) NEGATIVE (NEGATIVE); URINE KETONE NEGATIVE (NEGATIVE); URINE LEUK ESTERASE TRACE (NEGATIVE); URINE NITRITE NEGATIVE (NEGATIVE); URINE PROTEIN NEGATIVE (NEGATIVE); URINE UROBILINOGEN NEGATIVE mg/dL (0.2-1.0)
--- NOTE | 2017-07-03 08:31 | PDOC ---
*Physical Exam - Vital Signs Last Vital Signs Temp Pulse Resp BP Pulse Ox 98 F 73 18 132/68 97 07/03/17 07:51 07/03/17 07:51 07/03/17 07:51 07/03/17 07:51 07/03/17 07:51 ED Treatment Course - LABORATORY CBC & Chemistry Diagram: 07/02/17 23:20 07/03/17 04:15 - ADDITIONAL ORDERS Additional order review: Laboratory Results 07/03/17 07/03/17 07/02/17 08:04 04:15 23:57 Sodium 143 141 Potassium 3.6 3.5 Chloride 110 H 107 Carbon Dioxide 26 26 Anion Gap 7 L 8 BUN 34 H 37 H Creatinine 1.4 H 1.5 H Creat Clearance w eGFR 37.07 34.23 Random Glucose 101 109 H Calcium 8.6 8.7 Total Bilirubin 0.4 0.4 D AST 18 19 ALT 18 20 Alkaline Phosphatase 104 125 H Total Protein 6.2 L 7.0 Albumin 3.5 3.9 Lipase 294 Urine Color Straw Urine Appearance Clear Urine pH 5.0 Ur Specific [place] 1.015 Urine Protein Negative Urine Glucose (UA) Negative Urine Ketones Negative Urine Blood Negative Urine Nitrite Negative Urine Bilirubin Negative Urine Urobilinogen Negative Ur Leukocyte Esterase Trace Stool Occult Blood 07/02/17 07/02/17 23:20 23:20 Sodium Cancelled Potassium Cancelled Chloride Cancelled Carbon Dioxide Cancelled Anion Gap Cancelled BUN Cancelled Creatinine Cancelled Creat Clearance w eGFR Cancelled Random Glucose Cancelled Calcium Cancelled Total Bilirubin Cancelled AST Cancelled ALT Cancelled Alkaline Phosphatase Cancelled Total Protein Cancelled Albumin Cancelled Lipase Cancelled Urine Color Urine Appearance Urine pH Ur Specific [place] Urine Protein Urine Glucose (UA) Urine Ketones Urine Blood Urine Nitrite Urine Bilirubin Urine Urobilinogen Ur Leukocyte Esterase Stool Occult Blood Negative 07/02/17 23:20 RBC 4.04 D MCV 87.5 MCHC 34.3 RDW 12.6 MPV 9.1 D Neutrophils % 46.3 Lymphocytes % 45.1 H D Monocytes % 6.1 Eosinophils % 1.8 Basophils % 0.7 - Medications Given in the ED: ED Medications Discontinued Medications Generic Name Dose Route Start Last Admin Trade Name Freq PRN Reason Stop Dose Admin Acetaminophen 1,000 mg 07/02/17 23:14 07/02/17 23:29 Ofirmev Injection - IVPB 07/02/17 23:15 1,000 mg ONCE ONE Administration Sodium Chloride 1,000 mls @ 1,000 mls/hr 07/03/17 01:11 07/03/17 02:11 Normal Saline - IV 07/03/17 02:10 Not Given ASDIR STA Lactated Ringer's 1,000 ml 07/03/17 01:12 07/03/17 01:34 Lactated Ringers Solution IV 07/03/17 01:13 1,000 ml NOW ONE Administration Medical Decision Making - Medical Decision Making 07/03/17 07:30 Pt signed out to me by Dr. Grider. Pt is a 71F presenting with LLQ abdominal pain. CT showing possible teratoma. Pending US to r/o torsion. Attending short-stay obs pt. 07/03/17 10:[address] read: No CT findings of acute pathology are identified. There has been no definite interval change in comparison to a previous CT exam of 2014. 7.4 cm left ovarian dermoid cyst Status post cholecystectomy. Mild pneumobilia. Mild stable common bile duct dilatation. Mild sigmoid diverticulosis. U/S read: Complex mass in the left adnexa compatible with a fibroid. Right ovary was not visualized. Cystic density again seen in the uterine fundus inseparable from the distal end of the endometrial wall measuring 1.1 cm. There is also a trace of free fluid within the endometrial cavity. Radiologist called to comment on flow. 07/03/17 14:08 Pt was discharged prior to evaluation of flow to ovary. The patient had returned , was taken to registration but did not re-register and left. *DC/Admit/Observation/Transfer Diagnosis at time of Disposition: Abdominal pain Qualifiers: Abdominal location: generalized Qualified Code(s): R10.84 - Generalized abdominal pain Ovarian teratoma Qualifiers: Laterality: left Qualified Code(s): D27.1 - Benign neoplasm of left ovary - Discharge Dispostion Disposition: HOME Condition at time of disposition: Stable - Referrals - Patient Instructions - Post Discharge Activity
--- NOTE | 2017-07-03 08:53 | HP ---
CHIEF COMPLAINT: "i have blood in my stool" PCP: [facility], Dr Garrett HISTORY OF PRESENT ILLNESS: Patient is a 71 yo F with history of hemorrhoids, gastritis, HTN, HLD, hypothyroidism, chronic back and neck pain, who presented to ED due to 4 days of rectal bleeding and abdominal pain. She described her stools as watery with bright read streaks, which has happened before from hemorrhoids. BM is painful. She also complains of LLQ abd pain radiating to back that s dull, 4/10 and exacerbated by BM, pain is new. Last bm was yesterday. Her last colonoscopy was 5 yrs ago wnl, last endoscopy 5 yrs ago + gastritis. She has had slight nausea and has restricted PO intake. Denies f/c, constipation, cp, sob, h/a. ER course was notable for: (1)labs (2) abd pelvis ct, and pelvis us (3) tylenol, ivf Recent Travel: denies PAST MEDICAL HISTORY: as above PAST SURGICAL HISTORY: Open gallbladder removal, Social History: lives at home, good physician f/u Smoking: denies Alcohol:denies Drugs: denies Family History: Allergies No Known Drug Allergies Allergy (Verified 07/02/17 20:23) HOME MEDICATIONS: Home Medications Medication Instructions Recorded Fluoxetine HCl [Prozac] 20 mg PO DAILY 10/17/16 Lactulose (Oral Use) [Cephulac -] 20 gm PO DAILY 10/17/16 Pantoprazole Sodium [Protonix] 40 mg PO DAILY 10/17/16 Zolpidem Tartrate [Ambien] 10 mg PO DAILY 10/17/16 Acetaminophen [Tylenol .Regular 650 mg PO Q6H PRN #120 tablet 10/20/16 Strength -] Atorvastatin Ca [Lipitor] 20 mg PO HS #30 tablet 10/20/16 Cefepime [Maxipime 1Gm Ivpb 1 gm IVPB BID #120 bag 10/20/16 Pre-Docked] Diazepam [Valium] 5 mg PO DAILY #30 tablet MDD 1 10/20/16 Docusate Sodium [Colace -] 100 mg PO DAILY #30 cap 10/20/16 Hydrochlorothiazide [Hctz -] 12.5 mg PO DAILY #30 cap 10/20/16 Levothyroxine [Synthroid -] 75 mcg PO DAILY@0700 #30 tablet 10/20/16 Polyethylene Glycol 3350 [Miralax 17 gm PO DAILY #1 bottle 10/20/16 119 gm Btl -] Vancomycin 1,000 mg IVPB BID #120 vial 10/20/16 REVIEW OF SYSTEMS CONSTITUTIONAL: Absent: fever, chills, HEENT: Absent: rhinorrhea, nasal congestion, throat pain, CARDIOVASCULAR: Absent: chest pain, syncope, palpitations, irregular heart rate, lightheadedness , peripheral edema RESPIRATORY: Absent: cough, shortness of breath GASTROINTESTINAL: Absent: abdominal distension, vomiting, constipation GENITOURINARY: Absent: dysuria, hematuria MUSCULOSKELETAL: Absent: myalgia SKIN: Absent: pallor HEMATOLOGIC/IMMUNOLOGIC: Absent: easy bleeding, easy bruising ENDOCRINE: Absent: unexplained weight gain, unexplained weight loss NEUROLOGIC: Absent: headache, focal weakness or paresthesias PSYCHIATRIC: Absent: anxiety, depression PHYSICAL EXAMINATION Vital Signs - 24 hr 07/02/17 07/03/17 20:20 07:51 Temperature 98.1 F 98 F Pulse Rate 87 Pulse Rate [ 73 Apical] Respiratory 18 18 Rate Blood Pressure 139/85 Blood Pressure 132/68 [Left Arm] O2 Sat by Pulse 100 97 Oximetry (%) GENERAL: Awake, alert, and fully oriented, in no acute distress. HEAD: Normal with no signs of trauma. EYES: Pupils equal, round and reactive to light, extraocular movements intact, sclera anicteric, conjunctiva clear. No lid lag. EARS, NOSE, THROAT: Moist mucous membranes. NECK: supple LUNGS: Breath sounds equal, clear to auscultation bilaterally. HEART: Regular rate and rhythm, normal S1 and S2 ABDOMEN: Soft, slightly tender LLQ, not distended, normoactive bowel sounds, no guarding, no rebound, no masses. Rectal exam per ED MUSCULOSKELETAL: + L CVA tenderness. UPPER EXTREMITIES: 2+ pulses, warm, well-perfused. No cyanosis. No clubbing. No peripheral edema. LOWER EXTREMITIES: 2+ pulses, warm, well-perfused. No calf tenderness. No peripheral edema. NEUROLOGICAL: Cranial nerves II-XII grossly intact. Normal speech. PSYCHIATRIC: Cooperative. Good eye contact. SKIN: Warm, dry Laboratory Results - last 24 hr 07/02/17 07/02/17 07/02/17 23:20 23:20 23:20 WBC 12.0 H D RBC 4.04 D Hgb 12.1 D Hct 35.3 D MCV 87.5 MCH 30.0 MCHC 34.3 RDW 12.6 Plt Count 326 MPV 9.1 D Neutrophils % 46.3 Lymphocytes % 45.1 H D Monocytes % 6.1 Eosinophils % 1.8 Basophils % 0.7 Sodium Cancelled Potassium Cancelled Chloride Cancelled Carbon Dioxide Cancelled Anion Gap Cancelled BUN Cancelled Creatinine Cancelled Creat Clearance w eGFR Cancelled Random Glucose Cancelled Calcium Cancelled Total Bilirubin Cancelled AST Cancelled ALT Cancelled Alkaline Phosphatase Cancelled Total Protein Cancelled Albumin Cancelled Lipase Cancelled Urine Color Urine Appearance Urine pH Ur Specific [place] Urine Protein Urine Glucose (UA) Urine Ketones Urine Blood Urine Nitrite Urine Bilirubin Urine Urobilinogen Ur Leukocyte Esterase Stool Occult Blood Negative 07/02/17 07/03/17 07/03/17 23:57 04:15 08:04 WBC RBC Hgb Hct MCV MCH MCHC RDW Plt Count MPV Neutrophils % Lymphocytes % Monocytes % Eosinophils % Basophils % Sodium 141 143 Potassium 3.5 3.6 Chloride 107 110 H Carbon Dioxide 26 26 Anion Gap 8 7 L BUN 37 H 34 H Creatinine 1.5 H 1.4 H Creat Clearance w eGFR 34.23 37.07 Random Glucose 109 H 101 Calcium 8.7 8.6 Total Bilirubin 0.4 D 0.4 AST 19 18 ALT 20 18 Alkaline Phosphatase 125 H 104 Total Protein 7.0 6.2 L Albumin 3.9 3.5 Lipase 294 Urine Color Straw Urine Appearance Clear Urine pH 5.0 Ur Specific [place] 1.015 Urine Protein Negative Urine Glucose (UA) Negative Urine Ketones Negative Urine Blood Negative Urine Nitrite Negative Urine Bilirubin Negative Urine Urobilinogen Negative Ur Leukocyte Esterase Trace Stool Occult Blood ASSESSMENT/PLAN: Patient is a 71 yo F with history of hemorrhoids, gastritis, HTN, HLD, hypothyroidism, chronic back and neck pain, who presented to ED due to 4 days of rectal bleeding and abdominal pain. LLQ abd pain -CT abd/pelvis w.o contrast shows 7.4 cm L ovarian teratoma -f/u US to r/o torsion -outpatient f/u with OBGYN hematochezia -guaiac negative, h/a stable -likely transient hemorrhoidal bleed. -f/u with GI outpatient MIS -creat 1.4 baseline 1.8, elevated BUN -likely pre renal due to po restriction -s/p IVF in ED -Encourage hydration at home, PCP f/u Dispo: can be d/cd home with close f/u if abd/pelvis US negative for ovarian torsion Problem List - Problem (1) HTN (hypertension) Code(s): I10 - ESSENTIAL (PRIMARY) HYPERTENSION (2) HLD (hyperlipidemia) Code(s): E78.5 - HYPERLIPIDEMIA, UNSPECIFIED (3) Bleeding hemorrhoid Code(s): K64.9 - UNSPECIFIED HEMORRHOIDS (4) Abdominal pain Code(s): R10.9 - UNSPECIFIED ABDOMINAL PAIN Qualifiers: Abdominal location: generalized Qualified Code(s): R10.84 - Generalized abdominal pain (5) Ovarian teratoma Code(s): D27.9 - BENIGN NEOPLASM OF UNSPECIFIED OVARY Qualifiers: Laterality: left Qualified Code(s): D27.1 - Benign neoplasm of left ovary Visit type - Emergency Visit Emergency Visit: Yes ED Registration Date: 07/03/17 Care time: The patient presented to the Emergency Department on the above date and was hospitalized for further evaluation of their emergent condition. - New Patient This patient is new to me today: Yes Date on this admission: 07/03/17 - Critical Care Critical Care patient: No Hospitalist Screening - Colonoscopy Questionnaire Colonoscopy Questionnaire: Colonoscopy Questionnaire - Patient: 50 - 75 years old and never had a screening colonoscopy: Yes History of colon or rectal polyps, or CA: No History of IBD, Crohn's disease or UC: No History of abdominal radiation therapy as a child: No - Relative: 1 with colon or rectal CA, or polyps at age 60 or younger: No Colon or rectal CA diagnosed at age 45 or younger: No Multiple relatives with colon or rectal CA: No - Outcome: Screening Result: Positive Screen
[2017-07-03 08:56] LABS: EPI CELLS RARE /HPF (FEW); URINE MUCUS RARE
--- NOTE | 2017-07-03 10:07 | EKG ---
Test Reason : Blood Pressure : / mmHG Vent. Rate : 080 BPM Atrial Rate : 080 BPM P-R Int : 164 ms QRS Dur : 092 ms QT Int : 406 ms P-R-T Axes : 037 005 010 degrees QTc Int : 468 ms NORMAL SINUS RHYTHM INFERIOR INFARCT NO SIGNIFICANT CHANGE WAS FOUND Confirmed by Ramy Shine MD ([id number]) on 07/03/2017 10:07:32 AM Referred By: Confirmed By:Ramy Shine MD
--- NOTE | 2017-07-03 10:13 | PN ---
Teaching Attending Note Name of Resident: Serena Ferrari ATTENDING PHYSICIAN STATEMENT I saw and evaluated the patient. I reviewed the resident's note and discussed the case with the resident. I agree with the resident's findings and plan as documented. SUBJECTIVE: This is a 71 year old woman with a history of HTN, hyperlipidemia, hypothyroidism, chronic back pain, chronic neck pain, hemorrhoids, gastritis who comes to the ED complaining of abdominal pain and rectal bleeding x 4 days. Stools have been watery with streaks of bright red blood. She has LLQ abdominal pain. She reports having gastritis and a normal colonoscopy 5 years ago. OBJECTIVE: Vital Signs Period Temp Pulse Resp BP Sys/Pryor Pulse Ox Last 24 Hr 98 F-98.1 F 73-87 18-18 132-139/68-85 97-100 HEART: S1S2, RRR LUNGS: Clear ABDOMEN: Soft, non-tender, non-distended, normal BS EXTREMITIES: No edema Laboratory Tests 07/02/17 07/02/17 07/02/17 23:20 23:20 23:20 WBC 12.0 H D RBC 4.04 D Hgb 12.1 D Hct 35.3 D MCV 87.5 MCH 30.0 MCHC 34.3 RDW 12.6 Plt Count 326 MPV 9.1 D Neutrophils % 46.3 Lymphocytes % 45.1 H D Monocytes % 6.1 Eosinophils % 1.8 Basophils % 0.7 Sodium Cancelled Potassium Cancelled Chloride Cancelled Carbon Dioxide Cancelled Anion Gap Cancelled BUN Cancelled Creatinine Cancelled Creat Clearance w eGFR Cancelled Random Glucose Cancelled Calcium Cancelled Total Bilirubin Cancelled AST Cancelled ALT Cancelled Alkaline Phosphatase Cancelled Total Protein Cancelled Albumin Cancelled Lipase Cancelled Urine Color Urine Appearance Urine pH Ur Specific [place] Urine Protein Urine Glucose (UA) Urine Ketones Urine Blood Urine Nitrite Urine Bilirubin Urine Urobilinogen Ur Leukocyte Esterase Urine WBC (Auto) Urine RBC (Auto) Ur Epithelial Cells Urine Mucus Stool Occult Blood Negative 07/02/17 07/03/17 07/03/17 23:57 04:15 08:04 WBC RBC Hgb Hct MCV MCH MCHC RDW Plt Count MPV Neutrophils % Lymphocytes % Monocytes % Eosinophils % Basophils % Sodium 141 143 Potassium 3.5 3.6 Chloride 107 110 H Carbon Dioxide 26 26 Anion Gap 8 7 L BUN 37 H 34 H Creatinine 1.5 H 1.4 H Creat Clearance w eGFR 34.23 37.07 Random Glucose 109 H 101 Calcium 8.7 8.6 Total Bilirubin 0.4 D 0.4 AST 19 18 ALT 20 18 Alkaline Phosphatase 125 H 104 Total Protein 7.0 6.2 L Albumin 3.9 3.5 Lipase 294 Urine Color Straw Urine Appearance Clear Urine pH 5.0 Ur Specific [place] 1.015 Urine Protein Negative Urine Glucose (UA) Negative Urine Ketones Negative Urine Blood Negative Urine Nitrite Negative Urine Bilirubin Negative Urine Urobilinogen Negative Ur Leukocyte Esterase Trace Urine WBC (Auto) <1 Urine RBC (Auto) <1 Ur Epithelial Cells Rare Urine Mucus Rare Stool Occult Blood Home Medications Medication Instructions Recorded Fluoxetine HCl [Prozac] 20 mg PO DAILY 10/17/16 Lactulose (Oral Use) [Cephulac -] 20 gm PO DAILY 10/17/16 Pantoprazole Sodium [Protonix] 40 mg PO DAILY 10/17/16 Zolpidem Tartrate [Ambien] 10 mg PO DAILY 10/17/16 Acetaminophen [Tylenol .Regular 650 mg PO Q6H PRN #120 tablet 10/20/16 Strength -] Atorvastatin Ca [Lipitor] 20 mg PO HS #30 tablet 10/20/16 Cefepime [Maxipime 1Gm Ivpb 1 gm IVPB BID #120 bag 10/20/16 Pre-Docked] Diazepam [Valium] 5 mg PO DAILY #30 tablet MDD 1 10/20/16 Docusate Sodium [Colace -] 100 mg PO DAILY #30 cap 10/20/16 Hydrochlorothiazide [Hctz -] 12.5 mg PO DAILY #30 cap 10/20/16 Levothyroxine [Synthroid -] 75 mcg PO DAILY@0700 #30 tablet 10/20/16 Polyethylene Glycol 3350 [Miralax 17 gm PO DAILY #1 bottle 10/20/16 119 gm Btl -] Vancomycin 1,000 mg IVPB BID #120 vial 10/20/16 ASSESSMENT AND PLAN: This is a 71 year old woman with a history of HTN, hyperlipidemia, hypothyroidism, chronic back pain, chronic neck pain, hemorrhoids, gastritis who presented to the ED with abdominal pain and rectal bleeding x 4 days. 1. Rectal bleeding - Possibly hemorrhoidal - Stool is negative for occult blood 2. LLQ abdominal pain - CT shows 7.4 cm left ovarian dermoid cyst and mild sigmoid diverticulosis - US shows complex left adnexal mass and cystic density in uterine fundus 3. Possible MIS secondary to dehydration - Creatinine 1.5 -> 1.4 (last available creatinine is 0.8 from 09/2016) - Encourage PO fluids 4. HTN 5. Hyperlipidemia 6. Hypothyroidism 7. Ok for discharge home with outpatient follow-up
--- NOTE | 2017-07-03 11:24 | DS ---
Physical Exam: SUBJECTIVE: Patient seen and examined patient resting in bed NAD. afebrile, hemodynamically stable, has mild LLQ abd pain. denies n/v, rectal bleed OBJECTIVE: Vital Signs Period Temp Pulse Resp BP Sys/Pryor Pulse Ox Last 24 Hr 98 F-98.1 F 73-87 18-18 132-139/68-85 97-100 PHYSICAL EXAM GENERAL: Awake, alert, and fully oriented, in no acute distress. HEAD: Normal with no signs of trauma. EYES: Pupils equal, round and reactive to light, extraocular movements intact, sclera anicteric, conjunctiva clear. No lid lag. EARS, NOSE, THROAT: Moist mucous membranes. NECK: supple LUNGS: Breath sounds equal, clear to auscultation bilaterally. HEART: Regular rate and rhythm, normal S1 and S2 ABDOMEN: Soft, slightly tender LLQ, not distended, normoactive bowel sounds, no guarding, no rebound, no masses. Rectal exam per ED MUSCULOSKELETAL: + L CVA tenderness. UPPER EXTREMITIES: 2+ pulses, warm, well-perfused. No cyanosis. No clubbing. No peripheral edema. LOWER EXTREMITIES: 2+ pulses, warm, well-perfused. No calf tenderness. No peripheral edema. NEUROLOGICAL: Cranial nerves II-XII grossly intact. Normal speech. PSYCHIATRIC: Cooperative. Good eye contact. SKIN: Warm, dry LABS Laboratory Results - last 24 hr 07/02/17 07/02/17 07/02/17 23:20 23:20 23:20 WBC 12.0 H D RBC 4.04 D Hgb 12.1 D Hct 35.3 D MCV 87.5 MCH 30.0 MCHC 34.3 RDW 12.6 Plt Count 326 MPV 9.1 D Neutrophils % 46.3 Lymphocytes % 45.1 H D Monocytes % 6.1 Eosinophils % 1.8 Basophils % 0.7 Sodium Cancelled Potassium Cancelled Chloride Cancelled Carbon Dioxide Cancelled Anion Gap Cancelled BUN Cancelled Creatinine Cancelled Creat Clearance w eGFR Cancelled Random Glucose Cancelled Calcium Cancelled Total Bilirubin Cancelled AST Cancelled ALT Cancelled Alkaline Phosphatase Cancelled Total Protein Cancelled Albumin Cancelled Lipase Cancelled Urine Color Urine Appearance Urine pH Ur Specific Peridot Urine Protein Urine Glucose (UA) Urine Ketones Urine Blood Urine Nitrite Urine Bilirubin Urine Urobilinogen Ur Leukocyte Esterase Urine WBC (Auto) Urine RBC (Auto) Ur Epithelial Cells Urine Mucus Stool Occult Blood Negative 07/02/17 07/03/17 07/03/17 23:57 04:15 08:04 WBC RBC Hgb Hct MCV MCH MCHC RDW Plt Count MPV Neutrophils % Lymphocytes % Monocytes % Eosinophils % Basophils % Sodium 141 143 Potassium 3.5 3.6 Chloride 107 110 H Carbon Dioxide 26 26 Anion Gap 8 7 L BUN 37 H 34 H Creatinine 1.5 H 1.4 H Creat Clearance w eGFR 34.23 37.07 Random Glucose 109 H 101 Calcium 8.7 8.6 Total Bilirubin 0.4 D 0.4 AST 19 18 ALT 20 18 Alkaline Phosphatase 125 H 104 Total Protein 7.0 6.2 L Albumin 3.9 3.5 Lipase 294 Urine Color Straw Urine Appearance Clear Urine pH 5.0 Ur Specific Peridot 1.015 Urine Protein Negative Urine Glucose (UA) Negative Urine Ketones Negative Urine Blood Negative Urine Nitrite Negative Urine Bilirubin Negative Urine Urobilinogen Negative Ur Leukocyte Esterase Trace Urine WBC (Auto) <1 Urine RBC (Auto) <1 Ur Epithelial Cells Rare Urine Mucus Rare Stool Occult Blood HOSPITAL COURSE: Date of Admission:07/03/17 Patient is a 71 yo F with history of hemorrhoids, gastritis, HTN, HLD, hypothyroidism, chronic back and neck pain, who presented to ED due to 4 days of rectal bleeding and abdominal pain. She described her stools as watery with bright read streaks, which has happened before from hemorrhoids. BM is painful. She also complains of LLQ abd pain radiating to back that s dull, 4/10 and exacerbated by BM, pain is new. Last bm was yesterday. Her last colonoscopy was 5 yrs ago wnl, last endoscopy 5 yrs ago + gastritis. She has had slight nausea and has restricted PO intake. Denies f/c, constipation, cp, sob, h/a. In ED she was guaiac negative and bleed was attributed to hemorrhoids. Her abd/pelvis CT showed L ovarian teratoma and abd/pelvis US ruled out ovarian torsion. Labs showed slight pre renal MIS, attributed to dehydration, she was given IVF and instructed to hydrate at home and f/u with PCP. she has discharged home with instruction for close OBGYN, PCP and GI f/u. She was referred to OBGYN. Date of Discharge: 07/03/17 Minutes to complete discharge: 35 Discharge Summary Reason For Visit: TERATOMA OF OVARY Current Active Problems Abdominal pain (Acute) Bleeding hemorrhoid (Acute) HLD (hyperlipidemia) (Acute) HTN (hypertension) (Acute) Ovarian teratoma (Acute) Condition: Stable - Instructions Diet, Activity, Other Instructions: You were in the hospital due to rectal bleeding and abdominal pain. you rectal bleeding resolved, and your stool was negative for blood. this was probably due to hemorrhoid bleed. 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 Your abdominal pain is likely caused by an ovarian mass. Our CT w/o contrast of abdomen or pelvis shows a possible Left ovarian Teratoma. Please follow up with senior investigator this week Dr Srinivasan Your kidney numbers were slightly abnormal. this may be due to dehydration, Please drink plenty of fluids and follow with your primary doctor to check blood work this week. You can take Tylenol for pain, avoid Motrin. Return to ER if symptoms worsen. Usted estuvo en el hospital debido a sangrado rectal y dolor abdominal. usted resolvi el sangrado rectal y hemphill heces fue negativa para jessi. esto fue probablemente debido al sangrado de hemorroides. Por favor, connor un seguimiento con hemphill gastroenterlogo dentro de 2 semanas. Hemphill dolor abdominal es probablemente causado por miguel masa ovrica. Nuestra TC sin contraste de abdomen o pelvis muestra un posible teratoma de ovario grzegorz. Por favor haz un seguimiento con el gineclogo esta semana Dr. Srinivasan Giana nmeros de rin fueron ligeramente anormales. Deville puede deberse a la deshidratacin. Danube muchos lquidos y siga con hemphill mdico primario para controlar el anlisis de jessi esta semana. Puede jennifer Tylenol para el dolor, evite Motrin. Regrese a la luis de emergencias si los sntomas empeoran. Referrals: Erasmo Srinivasan MD [Primary Care Provider] - 1 Week Disposition: HOME - Home Medications Comprehensive Discharge Medication List: Ambulatory Orders Fluoxetine HCl [Prozac] 20 mg PO DAILY 10/17/16 Lactulose (Oral Use) [Cephulac -] 20 gm PO DAILY 10/17/16 Pantoprazole Sodium [Protonix] 40 mg PO DAILY 10/17/16 Zolpidem Tartrate [Ambien] 10 mg PO DAILY 10/17/16 Acetaminophen [Tylenol .Regular Strength -] 650 mg PO Q6H PRN #120 tablet Atorvastatin Ca [Lipitor] 20 mg PO HS #30 tablet 10/20/16 Cefepime [Maxipime 1Gm Ivpb Pre-Docked] 1 gm IVPB BID #120 bag 10/20/16 Diazepam [Valium] 5 mg PO DAILY #30 tablet MDD 1 10/20/16 Docusate Sodium [Colace -] 100 mg PO DAILY #30 cap 10/20/16 Hydrochlorothiazide [Hctz -] 12.5 mg PO DAILY #30 cap 10/20/16 Levothyroxine [Synthroid -] 75 mcg PO DAILY@0700 #30 tablet 10/20/16 Polyethylene Glycol 3350 [Miralax 119 gm Btl -] 17 gm PO DAILY #1 bottle Vancomycin 1,000 mg IVPB BID #120 vial 10/20/16 Problem List - Problems (1) HTN (hypertension) Code(s): I10 - ESSENTIAL (PRIMARY) HYPERTENSION (2) HLD (hyperlipidemia) Code(s): E78.5 - HYPERLIPIDEMIA, UNSPECIFIED (3) Bleeding hemorrhoid Code(s): K64.9 - UNSPECIFIED HEMORRHOIDS (4) Abdominal pain Code(s): R10.9 - UNSPECIFIED ABDOMINAL PAIN Qualifiers: Abdominal location: generalized Qualified Code(s): R10.84 - Generalized abdominal pain (5) Ovarian teratoma Code(s): D27.9 - BENIGN NEOPLASM OF UNSPECIFIED OVARY Qualifiers: Laterality: left Qualified Code(s): D27.1 - Benign neoplasm of left ovary This patient is new to me today: No Emergency Visit: Yes ED Registration Date: 07/03/17 Care time: The patient presented to the Emergency Department on the above date and was hospitalized for further evaluation of their emergent condition. Critical Care patient: No - Discharge Referral Referred to [facility] No
[2017-07-03 15:11] VITALS: BP 128/62
== END 2017-07-03 13:10 | disposition home or self-care (01) ==
LOC: JER 20:08 → JERBED 07-03 08:20
PROVIDERS: ADMIT Internal Medicine; ATTEND Internal Medicine
PROC: 3E0337Z Introduction of Electrolytic and Water Balance Substance into Peripheral Vein, Percutaneous Approach (ICD-10-PCS; principal; 2017-07-03)
DX: R10.84 Generalized abdominal pain (principal); K92.1 Melena; D27.1 Benign neoplasm of left ovary; I10 Essential (primary) hypertension; E78.5 Hyperlipidemia, unspecified; K64.8 Other hemorrhoids; M54.5 Low back pain; M54.2 Cervicalgia; G89.29 Other chronic pain; N17.9 Acute kidney failure, unspecified
CPT/HCPCS: 36415; 74176-TC; 76830-TC; 80053; 81003; 81015; 82272; 83690; 85025; 93005; 93010; 99284-25; G0378; J0131

== ENCOUNTER 2018-02-13 13:43 | Emergency (ER) | payer MEDICARE, OTHER ==
[2018-02-13 13:57] VITALS: BMI 32.8
--- NOTE | 2018-02-13 15:54 | PDOC ---
History of Present Illness - General Chief Complaint: Pain Stated Complaint: ABD PAIN,RT SIDE PAIN Time Seen by Provider: 02/13/18 14:40 History Source: Patient - History of Present Illness Initial Comments: 02/13/18 15:36 72F w/ pmhx of gastritis, esophageal ulcer, HTN, HLD, hypothyroidism, chronic neck pain, PTSD, anxiety, depression presents with 1 day history of RUQ abd pain radiating to the R flank. She states she usually gets mid-epigastric pain after eating food due to her hx of gastritis, but now she has new R flank pain that she has never had before. The pain started when she woke up yesterday morning. She states she applied a patch to the area of pain, but with no alleviation. Pt has had a cholecystectomy and has a history of fatty liver. Denies hx and fam hx of kidney stones, cardiac/lung disease. Admits to nausea, currently takes Meclizine due to vertigo. Denies morales/d, f/c,cp, vomiting, dysuria , hematuria, c/d, blood in stool, leg swelling. Last colonoscopy was 5 years ago, normal. Pt was supposed to get a colonoscopy in 2017, but did not do it. Last endoscopy was 5 years ago. PCP: Dr. Garrett PMHx: gastritis, esophageal ulcers, HTN, HLD, hypothyroidism, hemorrhoids, PTSD , depression, anxiety PSHx: cervical neck sx, L knee and shoulder sx, cholecystectomy FHx: Denies; no family hx of kidney stones Social: Denies tobacco, alcohol, rec drug use; Denies recent travel. Past History - Past Medical History Allergies/Adverse Reactions: Allergies Allergy/AdvReac Type Severity Reaction Status Date / Time No Known Drug Allergies Allergy Verified 02/13/18 13:49 Home Medications: Ambulatory Orders Fluoxetine HCl [Prozac] 20 mg PO DAILY 10/17/16 Pantoprazole Sodium [Protonix] 40 mg PO DAILY 10/17/16 Zolpidem Tartrate [Ambien] 10 mg PO DAILY 10/17/16 Acetaminophen [Tylenol .Regular Strength -] 650 mg PO Q6H PRN #120 tablet Atorvastatin Ca [Lipitor] 20 mg PO HS #30 tablet 10/20/16 Hydrochlorothiazide [Hctz -] 12.5 mg PO DAILY #30 cap 10/20/16 Levothyroxine [Synthroid -] 75 mcg PO DAILY@0700 #30 tablet 10/20/16 Bupropion HCl [Wellbutrin Xl -] 150 mg PO DAILY 09/29/17 Diclofenac Sodium [Diclofenac Sodium ER] 50 mg PO ASDIR 09/29/17 Ferrous Sulfate [Feosol] 325 mg PO BID 09/29/17 Gabapentin [Neurontin -] 300 mg PO BID 09/29/17 Meloxicam 7.5 mg PO HS 09/29/17 Omeprazole 40 mg PO DAILY 09/29/17 COPD: No Diabetes: No (hypoglycemia) GI Disorders: Yes (GASTRITIS) HTN: Yes Thyroid Disease: Yes - Surgical History Abdominal Surgery: Yes Cholecystectomy: Yes - Immunization History Immunization Up to Date: Yes - Suicide/Smoking/Psychosocial Hx Smoking Status: No Smoking History: Never smoked Have you smoked in the past 12 months: No Number of Cigarettes Smoked Daily: 0 Information on smoking cessation initiated: No Hx Alcohol Use: No Drug/Substance Use Hx: No Substance Use Type: None Review of Systems - Review of Systems Able to Perform ROS?: Yes Is the patient limited Kazakh proficient: No Constitutional: No: Chills, Fever HEENTM: No: Recent change in vision Respiratory: No: Cough, Shortness of Breath Cardiac (ROS): No: Chest Pain, Lightheadedness ABD/GI: Yes: Nausea, Indigestion. No: Constipated, Diarrhea, Rectal Bleeding, Vomiting, Tarry Stools : No: Burning, Dysuria, Hematuria Neurological: No: Headache, Dizziness *Physical Exam - Vital Signs Last Vital Signs Temp Pulse Resp BP Pulse Ox 98.1 F 79 16 130/42 L 98 02/13/18 13:49 02/13/18 13:49 02/13/18 13:49 02/13/18 13:49 02/13/18 13:49 - Physical Exam General Appearance: Yes: Appropriately Dressed HEENT: positive: EOMI, JOSE, Normal Voice Neck: positive: Tender (Left) Respiratory/Chest: positive: Lungs Clear, Normal Breath Sounds. negative: Crackles, Wheezing Cardiovascular: positive: Regular Rhythm, Regular Rate, S1, S2. negative: Murmur Vascular Pulses: Dorsalis-Pedis (R): 2+, Doralis-Pedis (L): 2+ Gastrointestinal/Abdominal: positive: Normal Bowel Sounds, Tender (RUQ radiating to R flank), Other (10 cm surgical scar midline of abdomen) Musculoskeletal: negative: CVA Tenderness Integumentary: positive: Normal Color, Dry, Warm Neurologic: positive: adult neuropsychologist II-XII NML intact, Fully Oriented, Alert, Motor Strength 5/ ED Treatment Course - LABORATORY CBC & Chemistry Diagram: 02/13/18 17:20 02/13/18 17:20 Medical Decision Making - Medical Decision Making 02/13/18 15:57 72F w/ pmhx of gastritis, esophageal ulcer, HTN, HLD, hypothyroidism, chronic neck pain, PTSD, anxiety, depression, s/p scarlett presents with 1 day history of RUQ abd pain radiating to the R flank. -will obtain CBC/CMP, lipase, EKG, U/A, trops 02/13/18 17:32 -Bedside u/s showed no evidence of hydronephrosis. Bladder full, 254 mm. -Tylenol, Famotidine, Zofran, IV NS given -await lab results 02/13/18 18:27 -labs unremarkable -await U/A, if normal, will likely DC to home with recommendation to follow up with PCP for symptoms. Case discussed with Dr. Pedraza. -Suzy Rogers, - PGY1 Sign out to Dr. Liriano. *DC/Admit/Observation/Transfer Diagnosis at time of Disposition: Flank pain Abdominal pain Qualifiers: Abdominal location: right upper quadrant Qualified Code(s): R10.11 - Right upper quadrant pain - Discharge Dispostion Disposition: HOME Condition at time of disposition: Good Decision to Admit order: No - Referrals Referrals: Chas Kenney MD, FAANS [Staff Physician] - Jacklyn Garrett MD [Primary Care Provider] - - Patient Instructions Printed Discharge Instructions: DI for Flank Pain, DI for Musculoskeletal Pain Additional Instructions: You were seen in the ED for complaints of abdominal and right back pain. In the ED, an ultrasound was done that did not show any sign of kidney stones. Your blood work was done that showed abnormal kidney function. There is no acute need for hospitalization at this time. You are being discharged home. MEDICAL RECOMMENDATIONS Please continue taking your home medications as directed. CONSULT RECOMMENDATIONS Please follow up with your primary care physician within 1 week. It is also important to follow up with your train braker (kidney doctor) for further evaluation of your abnormal kidney function. You have also been referred to Dr Kenney for evaluation of your back pain. If you experience persistent abdominal pain, chest pain, shortness of breath, pain during urination or defecating, or blood in your urine or stool, please proceed to your nearest emergency room immediately. Usted fue visto en el ED para las quejas del dolor de espalda abdominal y derecho. En el ED, se realiz miguel ecografa que no mostraba ningn signo de clculos renales. Se hizo el anlisis de jessi que mostr miguel funcin renal anormal. No hay necesidad aguda de hospitalizacin en telma momento. Ests siendo dado de rafael en casa. RECOMENDACIONES mdicas Por favor contine tomando jacobo medicamentos de la casa segn lo indicado. CONSULTAR recomendaciones Por favor, connor seguimiento con hemphill mdico de atencin primaria en 1 semana. Neville es importante hacer un seguimiento con hemphill nefrlogo (mdico de rin) para la evaluacin adicional de hemphill funcin renal anormal. Neville morales sido referido al Dr. Kenney para miguel evaluacin de hemphill dolor de espalda. Si usted experimenta dolor abdominal persistente, dolor en el pecho, dificultad para respirar, dolor jakub la miccin o defecacin, o jessi en la orina o heces, por favor proceda a hemphill luis de emergencias ms cercana inmediatamente. Print Language: VIETNAMESE - Post Discharge Activity
[2018-02-13] MEDS ORDERED: ACETAMINOPHEN 325 MG TABLET (FP) PO ONE (16:02)
[2018-02-13] MEDS ORDERED: ACETAMINOPHEN 325 MG TABLET (FP) ONE (17:02)
--- NOTE | 2018-02-13 17:02 | PDOC ---
History of Present Illness - General Chief Complaint: Pain Stated Complaint: ABD PAIN,RT SIDE PAIN Time Seen by Provider: 02/13/18 14:40 Past History - Past Medical History Allergies/Adverse Reactions: Allergies Allergy/AdvReac Type Severity Reaction Status Date / Time No Known Drug Allergies Allergy Verified 02/13/18 13:49 Home Medications: Ambulatory Orders Fluoxetine HCl [Prozac] 20 mg PO DAILY 10/17/16 Pantoprazole Sodium [Protonix] 40 mg PO DAILY 10/17/16 Zolpidem Tartrate [Ambien] 10 mg PO DAILY 10/17/16 Acetaminophen [Tylenol .Regular Strength -] 650 mg PO Q6H PRN #120 tablet Atorvastatin Ca [Lipitor] 20 mg PO HS #30 tablet 10/20/16 Hydrochlorothiazide [Hctz -] 12.5 mg PO DAILY #30 cap 10/20/16 Levothyroxine [Synthroid -] 75 mcg PO DAILY@0700 #30 tablet 10/20/16 Bupropion HCl [Wellbutrin Xl -] 150 mg PO DAILY 09/29/17 Diclofenac Sodium [Diclofenac Sodium ER] 50 mg PO ASDIR 09/29/17 Ferrous Sulfate [Feosol] 325 mg PO BID 09/29/17 Gabapentin [Neurontin -] 300 mg PO BID 09/29/17 Meloxicam 7.5 mg PO HS 09/29/17 Omeprazole 40 mg PO DAILY 09/29/17 COPD: No Diabetes: No (hypoglycemia) GI Disorders: Yes (GASTRITIS) HTN: Yes Thyroid Disease: Yes - Surgical History Abdominal Surgery: Yes Cholecystectomy: Yes - Immunization History Immunization Up to Date: Yes - Suicide/Smoking/Psychosocial Hx Smoking Status: No Smoking History: Never smoked Have you smoked in the past 12 months: No Number of Cigarettes Smoked Daily: 0 Information on smoking cessation initiated: No Hx Alcohol Use: No Drug/Substance Use Hx: No Substance Use Type: None Review of Systems - Review of Systems Is the patient limited Greenlandic proficient: No *Physical Exam - Vital Signs Last Vital Signs Temp Pulse Resp BP Pulse Ox 98.1 F 79 16 130/42 L 98 02/13/18 13:49 02/13/18 13:49 02/13/18 13:49 02/13/18 13:49 02/13/18 13:49 *DC/Admit/Observation/Transfer - Referrals Referrals: Jacklyn Garrett MD [Primary Care Provider] - - Patient Instructions - Post Discharge Activity
[2018-02-13] MEDS ORDERED: ONDANSETRON 4 MG/2 ML VIAL IVPUSH ONE (17:03)
[2018-02-13] MEDS ORDERED: SODIUM CHLORIDE 0.9% 1000 ML INFUS.BAG IV ONE (17:03)
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
[2018-02-13] MEDS ORDERED: FAMOTIDINE 20 MG/50 ML IVPB 20 MG/50 ML MG IVPB ONE ×2 (17:15→18:09)
[2018-02-13 17:54] LABS: BASO % 0.8 % (0-2.0); EOS % 2.2 % (0-4.5); HEMOGLOBIN 11.7 GM/dL (10.7-15.3); LYMPH % 41.5 % (8-40); MCH 29.3 pg (25.7-33.7); MCHC 33.5 g/dl (32.0-36.0); MEAN CELL VOLUME 87.3 fl (80-96); MEAN PLT VOLUME 8.8 fl (7.5-11.1); MONO % 6.1 % (3.8-10.2); NEUT % 49.4 % (42.8-82.8); PLATELET COUNT 288 K/MM3 (134-434); RBC 4.01 M/mm3 (3.60-5.2); RDW 12.8 % (11.6-15.6); WHITE BLOOD COUNT 6.8 K/mm3 (4.0-10.0)
[2018-02-13 18:08] LABS: ALBUMIN 3.9 g/dl (3.4-5.0); ALK PHOS 110 U/L (45-117); ANION GAP 6 MMOL/L (8-16); BILIRUBIN,TOTAL 0.7 mg/dL (0.2-1); BLOOD UREA NITROGEN 21 mg/dL (7-18); CALCIUM 8.8 mg/dL (8.5-10.1); CHLORIDE 106 mmol/L (98-107); CO2 27 mmol/L (21-32); CREATININE 1.4 mg/dL (0.55-1.3); GLUCOSE,RANDOM 95 mg/dL (74-106); LIPASE 273 U/L (73-393); SGOT/AST 22 U/L (15-37); SGPT/ALT 25 U/L (13-61); SODIUM 139 mmol/L (136-145); TOT PROT 7.2 g/dl (6.4-8.2)
[2018-02-13] MEDS ORDERED: ONDANSETRON 4 MG/2 ML VIAL ONE (18:08)
[2018-02-13 19:05] LABS: URINE APPEARANCE CLEAR; URINE BILIRUBIN NEGATIVE (<2.0 mg/dL); URINE COLOR LTYELLOW; URINE GLUCOSE (UA) NEGATIVE (NEGATIVE); URINE KETONE NEGATIVE (NEGATIVE); URINE LEUK ESTERASE NEGATIVE (NEGATIVE); URINE NITRITE NEGATIVE (NEGATIVE); URINE PROTEIN NEGATIVE (NEGATIVE); URINE UROBILINOGEN NEGATIVE mg/dL (0.2-1.0)
--- NOTE | 2018-02-13 19:16 | PDOC ---
*Physical Exam - Vital Signs Last Vital Signs Temp Pulse Resp BP Pulse Ox 98.1 F 79 16 130/42 L 98 02/13/18 13:49 02/13/18 13:49 02/13/18 13:49 02/13/18 13:49 02/13/18 13:49 ED Treatment Course - LABORATORY CBC & Chemistry Diagram: 02/13/18 17:20 02/13/18 17:20 - ADDITIONAL ORDERS Additional order review: Laboratory Results 02/13/18 02/13/18 17:20 17:20 Sodium 139 Potassium 4.0 Chloride 106 Carbon Dioxide 27 Anion Gap 6 L BUN 21 H Creatinine 1.4 H Creat Clearance w eGFR 36.96 Random Glucose 95 Calcium 8.8 Total Bilirubin 0.7 AST 22 ALT 25 Alkaline Phosphatase 110 Creatine Kinase 137 Troponin I < 0.02 Total Protein 7.2 Albumin 3.9 Lipase 273 02/13/18 17:20 RBC 4.01 MCV 87.3 MCHC 33.5 RDW 12.8 MPV 8.8 Neutrophils % 49.4 D Lymphocytes % 41.5 H Monocytes % 6.1 Eosinophils % 2.2 Basophils % 0.8 - Medications Given in the ED: ED Medications Discontinued Medications Generic Name Dose Route Start Last Admin Trade Name Issacq PRN Reason Stop Dose Admin Acetaminophen 650 mg 02/13/18 16:02 02/13/18 17:06 Tylenol - PO 02/13/18 16:03 650 mg ONCE ONE Administration Famotidine/Sodium Chloride 20 mg in 50 mls @ 100 mls/hr 02/13/18 17:15 18:18 Pepcid 20 Mg Premixed Ivpb - IVPB 02/13/18 17:44 100 mls/hr ONCE ONE Administration Ondansetron HCl 4 mg 02/13/18 17:03 02/13/18 18:18 Zofran Injection IVPUSH 02/13/18 17:04 4 mg ONCE ONE Administration Sodium Chloride 1,000 ml 02/13/18 17:03 02/13/18 18:18 Normal Saline - IV 02/13/18 17:04 1,000 ml ONCE ONE Administration Medical Decision Making - Medical Decision Making Mely Robbins is a 72yo woman with a PMH of gastritis, esophageal ulcer, HTN, HLD, hypothyroidism, PTSD, anxiety, depression, s/p cholecystectomy, fatty liver who presents with one day of new RUQ pain that radiates to the right flank. - Bedside ultrasound completed earlier, unremarkable - Labs reviewed. No concerning abnormalities. Notable for elevated Cr to 1.4, previously known by patient, who has nephrology follow up planned - UA sent. Results pending 02/13/18 20:07 - UA negative. Discussed results of labs, UA with Ms Robbins. - Reviewed previous abdominal US from 07/2017. No gross abnormalities. Aorta normal in width, no concerns for aneurysm. - Pt has chronic back problems, h/o spinal surgery. Will xray thoracic spine to r/o compression fracture or other acute pathology. If normal, will discharge home with PMD follow up. Discussed with patient, she agrees with this plan. 02/13/18 21:12 - Thoracic spine xray reviewed. No gross abnormality, fracture, or deformity - Will refer to Dr Kenney for follow up of back pain. - Discussed with Ms Robbins. Will discharge home. Discussed with Dr Pedraza. Allie Liriano PGY1 *DC/Admit/Observation/Transfer Diagnosis at time of Disposition: Flank pain Abdominal pain Qualifiers: Abdominal location: right upper quadrant Qualified Code(s): R10.11 - Right upper quadrant pain - Discharge Dispostion Disposition: HOME Condition at time of disposition: Good Decision to Admit order: No - Referrals Referrals: Jacklyn Garrett MD [Primary Care Provider] - Chas Kenney MD, FAANS [Staff Physician] - - Patient Instructions Printed Discharge Instructions: DI for Flank Pain, DI for Musculoskeletal Pain Additional Instructions: You were seen in the ED for complaints of abdominal and right back pain. In the ED, an ultrasound was done that did not show any sign of kidney stones. Your blood work was done that showed abnormal kidney function. There is no acute need for hospitalization at this time. You are being discharged home. MEDICAL RECOMMENDATIONS Please continue taking your home medications as directed. CONSULT RECOMMENDATIONS Please follow up with your primary care physician within 1 week. It is also important to follow up with your program admin (kidney doctor) for further evaluation of your abnormal kidney function. You have also been referred to Dr Kenney for evaluation of your back pain. If you experience persistent abdominal pain, chest pain, shortness of breath, pain during urination or defecating, or blood in your urine or stool, please proceed to your nearest emergency room immediately. Usted fue visto en el ED para las quejas del dolor de espalda abdominal y derecho. En el ED, se realiz miguel ecografa que no mostraba ningn signo de clculos renales. Se hizo el anlisis de jessi que mostr miguel funcin renal anormal. No hay necesidad aguda de hospitalizacin en telma momento. Ests siendo dado de rafael en casa. RECOMENDACIONES mdicas Por favor contine tomando jacobo medicamentos de la casa segn lo indicado. CONSULTAR recomendaciones Por favor, connor seguimiento con hemphill mdico de atencin primaria en 1 semana. Neville es importante hacer un seguimiento con hemphill nefrlogo (mdico de rin) para la evaluacin adicional de hemphill funcin renal anormal. Neville morales sido referido al Dr. Kenney para miguel evaluacin de hemphill dolor de espalda. Si usted experimenta dolor abdominal persistente, dolor en el pecho, dificultad para respirar, dolor jakub la miccin o defecacin, o jessi en la orina o heces, por favor proceda a hemphill luis de emergencias ms cercana inmediatamente. Print Language: ARABIC - Post Discharge Activity
[2018-02-13 21:38] VITALS: BP 129/45; PULSE 80; TEMP 98
--- NOTE | 2018-02-14 11:51 | EKG ---
Test Reason : Blood Pressure : / mmHG Vent. Rate : 064 BPM Atrial Rate : 064 BPM P-R Int : 176 ms QRS Dur : 084 ms QT Int : 454 ms P-R-T Axes : 040 003 028 degrees QTc Int : 468 ms NORMAL SINUS RHYTHM NORMAL ECG WHEN COMPARED WITH ECG OF 30-SEP-2017 00:17, NO SIGNIFICANT CHANGE WAS FOUND Confirmed by MARGUERITE VALLADARES MD ([id number]) on 02/14/2018 11:51:00 AM Referred By: Confirmed By:MARGUERITE VALLADARES MD
== END 2018-02-13 21:36 | disposition home or self-care (01) ==
LOC: JER 13:43
PROC: 3E033GC Introduction of Other Therapeutic Substance into Peripheral Vein, Percutaneous Approach (ICD-10-PCS; principal; 2018-02-13)
PROC: 3E0337Z Introduction of Electrolytic and Water Balance Substance into Peripheral Vein, Percutaneous Approach (ICD-10-PCS; 2018-02-13)
DX: R10.11 Right upper quadrant pain (principal); I10 Essential (primary) hypertension; E78.00 Pure hypercholesterolemia, unspecified; E03.9 Hypothyroidism, unspecified; M54.2 Cervicalgia; G89.29 Other chronic pain; F41.8 Other specified anxiety disorders; F43.10 Post-traumatic stress disorder, unspecified
CPT/HCPCS: 36415; 72070-TC-FY; 80053; 81003; 82550; 83690; 84484; 85025; 93005; 93010; 96361; 96365; 96375; 99281-25; J7030

== ENCOUNTER 2018-04-23 19:56 | Emergency (ER) | payer MEDICARE, OTHER ==
[2018-04-23 20:04] VITALS: BP 152/83; PULSE 92; TEMP 98; BMI 33.2
--- NOTE | 2018-04-23 21:15 | PDOC ---
History of Present Illness - General Chief Complaint: Vomiting/Diarrhea Stated Complaint: Vomiting/Diarrhea Time Seen by Provider: 04/23/18 21:15 - History of Present Illness Initial Comments: 72 year old female with PMH of gastritis, esophageal ulcer, HTN, HLD, hypothyroidism, chronic neck pain, PTSD, anxiety, and depression presenting with 2 day history of urinary symptoms, subjective warmth, nausea, vomiting, and diarrhea. States that she saw Dr. Rivas 3 days prior and had multiple injections in her right shoulder and arm for her back pain. Since then she has had nausea and NBB emesis 2x a day and diarrhea 2-3 x per day. Denies any measured fevers, but states that she has chills. She also describes trouble urinating sometimes and feeling as if she has to pee all the time. Denies any chest pain, headache, SOB, or other symptoms. 04/23/18 22:25 Past History - Past Medical History Allergies/Adverse Reactions: Allergies Allergy/AdvReac Type Severity Reaction Status Date / Time No Known Drug Allergies Allergy Verified 02/13/18 13:49 Home Medications: Ambulatory Orders Fluoxetine HCl [Prozac] 20 mg PO DAILY 10/17/16 Pantoprazole Sodium [Protonix] 40 mg PO DAILY 10/17/16 Zolpidem Tartrate [Ambien] 10 mg PO DAILY 10/17/16 Acetaminophen [Tylenol .Regular Strength -] 650 mg PO Q6H PRN #120 tablet Atorvastatin Ca [Lipitor] 20 mg PO HS #30 tablet 10/20/16 Hydrochlorothiazide [Hctz -] 12.5 mg PO DAILY #30 cap 10/20/16 Levothyroxine [Synthroid -] 75 mcg PO DAILY@0700 #30 tablet 10/20/16 Bupropion HCl [Wellbutrin Xl -] 150 mg PO DAILY 09/29/17 Diclofenac Sodium [Diclofenac Sodium ER] 50 mg PO ASDIR 09/29/17 Ferrous Sulfate [Feosol] 325 mg PO BID 09/29/17 Gabapentin [Neurontin -] 300 mg PO BID 09/29/17 Meloxicam 7.5 mg PO HS 09/29/17 Omeprazole 40 mg PO DAILY 09/29/17 COPD: No Diabetes: No (hypoglycemia) GI Disorders: Yes (GASTRITIS) HTN: Yes Thyroid Disease: Yes - Surgical History Abdominal Surgery: Yes Cholecystectomy: Yes - Immunization History Immunization Up to Date: Yes - Suicide/Smoking/Psychosocial Hx Smoking Status: No Smoking History: Never smoked Have you smoked in the past 12 months: No Number of Cigarettes Smoked Daily: 0 Information on smoking cessation initiated: No Hx Alcohol Use: No Drug/Substance Use Hx: No Substance Use Type: None Review of Systems - Review of Systems Constitutional: No: Chills, Diaphoresis, Fever, Loss of Appetite HEENTM: No: Blurred Vision, Tearing Respiratory: No: Cough, Orthopnea, Shortness of Breath Cardiac (ROS): No: Chest Pain, Irregular Heart Rate ABD/GI: Yes: Diarrhea, Nausea, Poor Appetite, Vomiting : Yes: Frequency. No: Burning, Dysuria, Discharge Musculoskeletal: No: Back Pain, Gout, Joint Pain Integumentary: No: Lesions, Lumps, Pallor, Pruritus Neurological: No: Numbness, Paresthesia, Tremors Psychiatric: Yes: Anxiety, Depression Hematologic/Lymphatic: No: Anemia, Blood Clots, Easy Bleeding *Physical Exam - Vital Signs Last Vital Signs Temp Pulse Resp BP Pulse Ox 98.0 F 92 H 18 152/83 97 04/23/18 20:01 04/23/18 20:01 04/23/18 20:01 04/23/18 20:01 04/23/18 20:01 - Physical Exam General Appearance: Yes: Nourished, Appropriately Dressed. No: Apparent Distress HEENT: positive: EOMI, JOSE, Normal ENT Inspection, Normal Voice Neck: positive: Trachea midline, Normal Thyroid, Supple. negative: Tender, Rigid Respiratory/Chest: positive: Lungs Clear, Normal Breath Sounds. negative: Chest Tender, Respiratory Distress, Accessory Muscle Use Cardiovascular: positive: Regular Rhythm, Regular Rate Gastrointestinal/Abdominal: positive: Normal Bowel Sounds, Flat, Soft. negative : Tender Musculoskeletal: positive: Normal Inspection. negative: Decreased Range of Motion, Vertebral Tenderness Extremity: positive: Normal Capillary Refill, Normal Inspection, Normal Range of Motion. negative: Tender Integumentary: positive: Normal Color, Dry, Warm Neurologic: positive: Fully Oriented, Alert, Normal Mood/Affect, Normal Response , Motor Strength 5/5 Moderate Sedation - Procedure Monitoring Vital Signs: Procedure Monitoring Vital Signs Temperature 98.0 F 04/23/18 20:01 Pulse Rate 92 H 01/22/19 20:01 Respiratory Rate 18 04/23/18 20:01 Blood Pressure 152/83 04/23/18 20:01 O2 Sat by Pulse Oximetry (%) 97 04/23/18 20:01 ED Treatment Course - LABORATORY CBC & Chemistry Diagram: 04/23/18 22:26 04/23/18 22:26 Medical Decision Making - Medical Decision Making 72 year old with right sided headache for the past week. Head CT here negative , and patient better after fluids and Reglan. No meningeal signs and patient very well appearing ambulating back and forth to the desk. Will DC with neuro follow up for better headache management. 04/24/18 02:25 *DC/Admit/Observation/Transfer Diagnosis at time of Disposition: Headache Qualifiers: Headache type: tension-type Headache chronicity pattern: acute headache Intractability: not intractable Qualified Code(s): G44.209 - Tension-type headache, unspecified, not intractable - Discharge Dispostion Disposition: HOME Condition at time of disposition: Improved - Referrals Referrals: Hunter Dao [Primary Care Provider] - Ryder Rodriguez MD [Staff Physician] - - Patient Instructions Printed Discharge Instructions: DI for Headache Additional Instructions: Please use the Tylenol and ibuprofen for the headaches. Please return to the ED if you have new or worsening symptoms. - Post Discharge Activity
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
[2018-04-23] MEDS ORDERED: SODIUM CHLORIDE 0.9% 500 ML INFUS.BAG IV ONE (22:22)
[2018-04-23 22:50] LABS: BASO % 0.7 % (0-2.0); EOS % 1.8 % (0-4.5); HEMATOCRIT 38.4 % (32.4-45.2); HEMOGLOBIN 13.1 GM/dL (10.7-15.3); LYMPH % 34.2 % (8-40); MCH 29.6 pg (25.7-33.7); MEAN PLT VOLUME 8.6 fl (7.5-11.1); MONO % 8.8 % (3.8-10.2); NEUT % 54.5 % (42.8-82.8); PLATELET COUNT 286 K/MM3 (134-434); RBC 4.42 M/mm3 (3.60-5.2); RDW 13.1 % (11.6-15.6); WHITE BLOOD COUNT 8.8 K/mm3 (4.0-10.0)
[2018-04-24 00:50] LABS: URINE APPEARANCE SLCLOUDY; URINE BILIRUBIN NEGATIVE (<2.0 mg/dL); URINE COLOR YELLOW; URINE GLUCOSE (UA) NEGATIVE (NEGATIVE); URINE KETONE NEGATIVE (NEGATIVE); URINE LEUK ESTERASE NEGATIVE (NEGATIVE); URINE NITRITE NEGATIVE (NEGATIVE); URINE PROTEIN 1+ (NEGATIVE); URINE UROBILINOGEN NEGATIVE mg/dL (0.2-1.0)
[2018-04-24 00:52] LABS: ALBUMIN 4.1 g/dl (3.4-5.0); ALK PHOS 107 U/L (45-117); ANION GAP 10 MMOL/L (8-16); BILIRUBIN,TOTAL 0.4 mg/dL (0.2-1); BLOOD UREA NITROGEN 34 mg/dL (7-18); CALCIUM 8.9 mg/dL (8.5-10.1); CHLORIDE 109 mmol/L (98-107); CO2 19 mmol/L (21-32); CREATININE 1.8 mg/dL (0.55-1.3); GLUCOSE,RANDOM 97 mg/dL (74-106); POTASSIUM 3.9 mmol/L (3.5-5.1); SGOT/AST 28 U/L (15-37); SGPT/ALT 39 U/L (13-61); SODIUM 138 mmol/L (136-145); TOT PROT 7.3 g/dl (6.4-8.2)
[2018-04-24 01:16] LABS: EPI CELLS RARE /HPF (FEW); URINE BACTERIA RARE /hpf (NONE SEEN); URINE HYALINE CAST 14 /lpf; URINE MUCUS RARE
[2018-04-24] MEDS ORDERED: FAMOTIDINE 20 MG/50 ML IVPB 20 MG/50 ML MG IVPB ONE ×2 (03:02→03:44)
[2018-04-24] MEDS ORDERED: MAG HYDROX/AL HYDROX/SIMETH 30 ML UNIT-DOSE CUP PO ONE (03:02)
[2018-04-24] MEDS ORDERED: ACETAMINOPHEN 1000 MG/100 ML VIAL (NON FORMULARY) IVPB ONE (03:03)
[2018-04-24 03:30] LABS: AMYLASE 75 U/L (25-115); LIPASE 261 U/L (73-393)
[2018-04-24] MEDS ORDERED: ACETAMINOPHEN INJECTION 100 ML IVPB ONE (03:43)
[2018-04-24] MEDS ORDERED: MAG HYDROX/AL HYDROX/SIMETH 30 ML UNIT-DOSE CUP ONE (03:44)
== END 2018-04-24 04:59 | disposition home or self-care (01) ==
LOC: JER 19:56
PROC: 3E033NZ Introduction of Analgesics, Hypnotics, Sedatives into Peripheral Vein, Percutaneous Approach (ICD-10-PCS; principal; 2018-04-23)
PROC: 3E033GC Introduction of Other Therapeutic Substance into Peripheral Vein, Percutaneous Approach (ICD-10-PCS; 2018-04-23)
DX: G44.209 Tension-type headache, unspecified, not intractable (principal); M54.2 Cervicalgia; G89.29 Other chronic pain; I10 Essential (primary) hypertension; E78.00 Pure hypercholesterolemia, unspecified; E03.9 Hypothyroidism, unspecified; F43.10 Post-traumatic stress disorder, unspecified; F41.8 Other specified anxiety disorders
CPT/HCPCS: 36415; 80053; 81003; 81015; 82150; 83690; 85025; 87086; 96365; 96375; 99282-25; J0131

== ENCOUNTER 2018-06-04 13:18 | Emergency (ER) | payer MEDICARE, OTHER ==
[2018-06-04 13:45] VITALS: BP 131/54; PULSE 77; TEMP 97.8; BMI 32.2
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
[2018-06-04] MEDS ORDERED: traMADol HCL 50 MG TABLET PO ONE (14:39)
[2018-06-04] MEDS ORDERED: KETOROLAC TROMETHAMINE 30 MG/1 ML VIAL IM ONE (14:39)
[2018-06-04] MEDS ORDERED: traMADol HCL 50 MG TABLET ONE (14:46)
[2018-06-04] MEDS ORDERED: LIDOCAINE 5% TOPICAL PATCH TP ONE (14:46)
[2018-06-04] MEDS ORDERED: LIDOCAINE 5% TOPICAL PATCH ONE (15:23)
[2018-06-04] MEDS ORDERED: LIDOCAINE PATCH REMOVAL MC SCH (22:00)
== END 2018-06-04 15:32 | disposition home or self-care (01) ==
LOC: JER 13:18
DX: M54.6 Pain in thoracic spine (principal); I10 Essential (primary) hypertension; E78.00 Pure hypercholesterolemia, unspecified; E03.9 Hypothyroidism, unspecified; K29.70 Gastritis, unspecified, without bleeding; F41.9 Anxiety disorder, unspecified; F43.10 Post-traumatic stress disorder, unspecified; F32.9 Major depressive disorder, single episode, unspecified; Z98.1 Arthrodesis status
CPT/HCPCS: 99281-25

== ENCOUNTER 2019-03-10 06:09 | Day surgery (SDC) | payer MEDICARE, OTHER ==
[2019-03-10 06:45] VITALS: BMI 33.5
--- NOTE | 2019-03-10 06:58 | HP ---
History & Physical Update - History History: No Change - Physical Physical: No Change - Assessment Assessment: No Change - Plan Plan: No Change (No change in HP)
[2019-03-10] MEDS ORDERED: ROCURONIUM BROMIDE 50 MG/5 ML SYRINGE ONE (07:50)
[2019-03-10] MEDS ORDERED: PROPOFOL 20 ML ONE ×2 (07:50)
[2019-03-10] MEDS ORDERED: LIDOCAINE HCL/PF 2% SDV 5ML VIAL ONE (07:50)
[2019-03-10] MEDS ORDERED: MIDAZOLAM HCL 2 MG/2 ML SINGLE DOSE VIAL ONE (07:50)
[2019-03-10] MEDS ORDERED: DEXAMETHASONE SOD PHOSPHATE 4 MG/1 ML VIAL ONE (08:24)
[2019-03-10] MEDS ORDERED: ceFAZolin SODIUM 1 GM VIAL ONE (08:24)
[2019-03-10] MEDS ORDERED: BUPIVACAINE HCL/PF 0.5% (5 MG/ML) 30 ML VIAL IJ ONE ×2 (08:25→08:36)
[2019-03-10] MEDS ORDERED: ceFAZolin SODIUM 1 GM VIAL IVPB ONE (08:25)
[2019-03-10] MEDS ORDERED: NEOSTIGMINE METHYLSULFATE 0.5 MG/ML - 10 ML MDV ONE (08:48)
[2019-03-10] MEDS ORDERED: GLYCOPYRROLATE 0.2 MG/1 ML VIAL ONE (08:48)
[2019-03-10] MEDS ORDERED: KETOROLAC TROMETHAMINE 30 MG/1 ML VIAL ONE (09:03)
[2019-03-10] MEDS ORDERED: oxyCODONE HCL 5 MG TABLET PO PRN (09:39)
[2019-03-10] MEDS ORDERED: ACETAMINOPHEN 500 MG TABLET (FP) PO PRN (09:39)
[2019-03-10] MEDS ORDERED: ONDANSETRON 4 MG/2 ML VIAL IVPUSH PRN (09:39)
[2019-03-10] MEDS ORDERED: LACTATED RINGERS SOLUTION 1,000 ML IV SCH (09:45)
--- NOTE | 2019-03-10 09:57 | OP ---
Operative Note - Note: Operative Date: 03/10/19 Pre-Operative Diagnosis: Left ovarian cyst Operation: Laproscopic Left oopherectomy and bilateral salpingectomy Surgeon: Rianna Atkinson Horse Race Timer: Atif Arzola Anesthesiologist/BUSINESS LEADER: Mell Nolen Anesthesia: General Specimens Removed: Left ovary and bilateral fallopian tubes Estimated Blood Loss (mls): 5 Operative Report Dictated: Yes
[2019-03-10] MEDS ORDERED: ALBUTEROL SO4 0.083% IH SOL 2.5 MG/3 ML VIAL.NEB. NEB ONE ×2 (11:28→11:30)
[2019-03-10] MEDS ORDERED: ALBUTEROL SO4 0.5 % INH SOLN 2.5 MG/0.5 ML VIAL.NEB. NEB ONE (11:29)
[2019-03-10 17:01] VITALS: PULSE 80; TEMP 98.7
[2019-03-10 18:55] VITALS: BP 121/72
--- NOTE | 2019-03-12 15:46 | PATH ---
Surgical Pathology Report Patient Name: CHAMP KEVIN [facility]. Rec. #: [id number] /Age/Gender: 1945 (Age: 73) / F Account: [id number] Location: [facility] SURGICAL Taken: 03/10/2019 Received: 03/10/2019 Reported: 03/12/2019 Physicians: Rianna Atkinson M.D. Specimen(s) Received A: LEFT FALLOPIAN TUBE AND OVARY B: RIGHT FALLOPIAN TUBE Clinical History Fibroids Final Diagnosis A. FALLOPIAN TUBE AND OVARY, LEFT, LAPAROSCOPIC OOPHORECTOMY AND SALPINGECTOMY: OVARY WITH MATURE CYSTIC TERATOMA. FALLOPIAN TUBE WITH ENDOSALPINGOSIS (INCLUDING FULL LUMINAL SECTION AND FIMBRIATED END). DENSE TUBO-OVARIAN ADHESIONS. B. FALLOPIAN TUBE, RIGHT, LAPAROSCOPIC SALPINGECTOMY: FALLOPIAN TUBE WITH WALTHARD NEST CYST (INCLUDING FULL LUMINAL SECTION AND FIMBRIATED END). SEE COMMENT. Comment: Part B, Immunohistochemical stains performed at [place], [place] ([id number]) and interpreted at [facility] for p53 and ki-67 utilized to evaluate focal epithelial proliferation within fallopian tube fimbria. P53 shows wild type staining. Ki-67 is low. Positive and negative controls (internal if applicable) show appropriate results. Electronically Signed Jovita Bowser M.D. Gross Description A. Received in formalin labeled "left fallopian tube and ovary," is a 6.3 x 4.0 x 3.2 cm cystic structure/ovary with an attached 3 cm in length fimbriated fallopian tube. The outer surface of the fallopian tube is guardado-pink with tubo-ovarian adhesions. Sectioning reveals an unremarkable fallopian tube lumen. The outer surface of the ovary is guardado-yellow and smooth with a focal defect. The lumen contains abundant guardado sebaceous material and hair. No normal ovarian parenchyma is identified. Plate Gauger sections are submitted in 7 cassettes as follows: 1-fimbria; 2-cross sections of fallopian tube; 3-7-ovarian cyst. B. Received in formalin labeled "right fallopian tube," are 2 pink-guardado portions of fallopian tube measuring 2.1 and 3.0 cm in length. The longer portion is fimbriated. The outer surfaces are guarddao-pink and smooth. Sectioning reveals unremarkable fallopian tube lumen. Plate Gauger sections are submitted in 2 cassettes as follows: 1-fimbria; 2-cross sections of fallopian tube. 03/10/2019 [facility]03/10/2019
--- NOTE | 2019-03-20 00:25 | OP ---
DATE OF OPERATION: 03/10/2019 PREOPERATIVE DIAGNOSIS: Left ovarian cyst. POSTOPERATIVE DIAGNOSIS: Left ovarian cyst. OPERATION: Laparoscopic left oophorectomy and bilateral salpingectomy. SURGEON: Ruthy Maya M.D. PARK SUPERINTENDENT: Inderjit Alberts ANESTHESIOLOGIST: Mell Nolen MD ANESTHESIA: General. ESTIMATED BLOOD LOSS: 5 mL. SPECIMEN: Left ovary and bilateral fallopian tubes. FINDINGS: Uterus about 8 cm in size. PROCEDURE: Patient was taken to the operating room, placed in dorsal supine position, prepped and draped in the usual sterile fashion. Higginbotham catheter was placed into the bladder. Attention was then drawn to the umbilicus where a 5-mm umbilical incision was made. Veress needle was entered to the cavity. Approximately 2-4 L of CO2 was insufflated in the cavity. Veress needle was then removed, and a 5-mm trocar was then inserted, laparoscope and camera attached. Visualization revealed a left ovarian cyst. Tubes were noted to be normal. The trocars were then inserted, a 10-mm trocar was inserted on the left, and a 5-mm trocar inserted on the right under direct visualization. The right, left ovary was then grasped, and coagulation and cutting using LigaSure was then used to remove the left ovary. The infundibulopelvic ligament identified and clamped and cut, and cautery and cutting of the fallopian tube was done to the isthmus of the uterus. Same procedure was repeated on the right side. The right tube was grasped and right salpingectomy was then done. Tubes and ovaries were removed and hemostasis was achieved. Fascia was closed using Shashi Victoria device with O vicryl. After hemostasis was achieved, all instruments were then removed. Sin was closed with 3-0 Biosyn in subcuticular fashion. The wound was washed and dressed. Patient tolerated procedure well. Estimated blood loss 5 mL. RUTHY MAYA M.D. [id number] MTDD
== END 2019-03-10 18:20 | disposition home or self-care (01) ==
LOC: JASU-SURG 06:09
PROVIDERS: ATTEND Obstetrics & Gynecology
PROC: 0UB14ZZ Excision of Left Ovary, Percutaneous Endoscopic Approach (ICD-10-PCS; principal; 2019-03-10 07:30)
PROC: 0UB74ZZ Excision of Bilateral Fallopian Tubes, Percutaneous Endoscopic Approach (ICD-10-PCS; 2019-03-10 07:30)
DX: N83.202 Unspecified ovarian cyst, left side (principal)
CPT/HCPCS: 36415; 84703; 86850; 86900; 86901; 88302-TC; 88307-TC; 94760

== ENCOUNTER 2019-03-19 12:28 | Inpatient (IN) | payer MEDICARE, OTHER ==
--- NOTE | 2019-03-19 13:41 | PDOC ---
History of Present Illness - General Chief Complaint: Pain Stated Complaint: LOWER ABD PAIN Time Seen by Provider: 03/19/19 13:18 History Source: Patient Exam Limitations: No Limitations - History of Present Illness Initial Comments: 03/19/19 13:40 Surgeon: Dr. Rianna Atkinson HPI: 73 yo F with PMH gastritis, esophageal ulcer, HTN, HLD, hypothyroidism, chronic neck pain, PTSD, anxiety, and depression, s/p left ooperectomy and bilateral salpingectomy on 03/10/19 presenting with lower abdominal pain gradually worsening since she ran out of pain medication (5mg Oxycodone) on 03/20. Patient has been changing dressings at home, denies any drainage from her surgical site nor has she noticed any redness/swelling of the area. Reports worsening pain deep to her LLQ surgical site and now 3 days of L thigh pain. Pain is not well controlled with tylenol at home and is exacerbated by movement. Endorses subjective fevers and sweating, dose not own a thermometer. Denies chest pain, SOB, cough, nausea, or vomiting. Good urine output and normal BMs at home. Last Tylenol at 9AM All: KNDA Meds: per chart PMH: as above PSH: as above with additional remote exploratory laparotomy SHx: Denies smoking / ETOH / Illicits Past History - Travel Traveled outside of the country in the last 30 days: No Close contact w/someone who was outside of country & ill: No - Past Medical History Allergies/Adverse Reactions: Allergies Allergy/AdvReac Type Severity Reaction Status Date / Time apple Allergy Intermediate ITCHY Verified 03/19/19 17:17 No Known Drug Allergies Allergy Verified 03/19/19 17:17 CHERRIES Allergy Intermediate ITCHY Uncoded 03/19/19 17:17 FISH Allergy Intermediate ITCHY Uncoded 03/19/19 17:17 Home Medications: Ambulatory Orders Fluoxetine HCl [Prozac] 20 mg PO DAILY 10/17/16 Acetaminophen [Tylenol .Regular Strength -] 650 mg PO Q6H PRN #120 tablet Atorvastatin Ca [Lipitor] 20 mg PO HS #30 tablet 10/20/16 Hydrochlorothiazide [Hctz -] 12.5 mg PO DAILY #30 cap 10/20/16 Levothyroxine [Synthroid -] 75 mcg PO DAILY@0700 #30 tablet 10/20/16 Omeprazole 40 mg PO DAILY 09/29/17 Acetaminophen [Tylenol Extra Strength] 1,000 mg PO Q6H #30 tablet 06/04/18 Alendronate Sodium [Fosamax] 1 tab PO WEEKLY 03/10/19 oxyCODONE HCL [Roxicodone -] 5 mg PO Q6H PRN #10 tablet MDD 4 03/10/19 Anemia: Yes Asthma: No Cancer: No Cardiac Disorders: No CVA: No COPD: No CHF: No Dementia: No Diabetes: No (hypoglycemia) GI Disorders: Yes (GASTRITIS) Disorders: Yes (nodule left kidney) HTN: Yes Hypercholesterolemia: Yes Liver Disease: No Seizures: No Thyroid Disease: Yes - Surgical History Abdominal Surgery: Yes Appendectomy: No Cardiac Surgery: No Cholecystectomy: Yes Lung Surgery: No Neurologic Surgery: Yes Orthopedic Surgery: Yes - Immunization History Immunization Up to Date: Yes - Psycho Social/Smoking Cessation Hx Smoking Status: No Smoking History: Never smoked Have you smoked in the past 12 months: No Number of Cigarettes Smoked Daily: 0 Information on smoking cessation initiated: No Hx Alcohol Use: No Drug/Substance Use Hx: No Substance Use Type: None Hx Substance Use Treatment: No Review of Systems - Review of Systems Able to Perform ROS?: Yes Is the patient limited Tanzanian proficient: Yes Constitutional: Yes: Diaphoresis, Fever, Weight Stable. No: Chills, Weakness HEENTM: Yes: Throat Pain (day after surgery / intubation, since resolved). No: Recent change in vision, Nose Congestion, Mouth Pain Respiratory: No: Cough, Shortness of Breath, Wheezing Cardiac (ROS): No: Chest Pain, Edema, Irregular Heart Rate, Syncope, Chest Tightness ABD/GI: No: Abdominal Distended, Constipated, Diarrhea, Nausea, Vomiting : No: Burning, Dysuria, Discharge, Frequency, Incontinence, Urgency Musculoskeletal: Yes: Muscle Pain (left thigh?). No: Back Pain, Joint Pain Integumentary: Yes: Rash (reports a diffuse rash across her upper abdomen about a week ago that has since resolved). No: Bruising, Change in Color, Change in Hair/Nails, Pruritus Neurological: No: Headache, Numbness, Tingling, Weakness Hematologic/Lymphatic: No: Anemia, Blood Clots, Easy Bleeding All Other Systems: Reviewed and Negative *Physical Exam - Vital Signs Last Vital Signs Temp Pulse Resp BP Pulse Ox 97.9 F 80 16 135/9 L 98 03/19/19 12:37 03/19/19 12:37 03/19/19 12:37 03/19/19 12:37 03/19/19 12:37 - Physical Exam 03/19/19 14:05 AFVSS WDWN, appears stated age, no acute distress, laying flat on hospital stretcher Dry mucous membranes, EOMI, NCAT RRR, nls1s2, no murmurs appreciated CTABL, normal WOB, no wheezes / rales / rhonchi Soft, not distended, multiple surgical scars, exquisitely tender in LLQ, LLQ surgical site non-erythematous, not warm or swollen / indurated / fluctuant, dressing before removal c/d/i WWP, no clubbing / cyanosis / edema, left quad TTP, non-tender distally ED Treatment Course - LABORATORY CBC & Chemistry Diagram: 03/19/19 14:42 03/19/19 14:42 Medical Decision Making - Medical Decision Making 03/19/19 13:44 73 yo F with PMH gastritis, esophageal ulcer, HTN, HLD, hypothyroidism, chronic neck pain, PTSD, anxiety, and depression, s/p left ooperectomy and bilateral salpingectomy on 03/10/19 presenting with lower abdominal pain gradually worsening since she ran out of pain medication (5mg Oxycodone) on 03/13/19. History notable for worsening pain, subjective fevers, absence of superficial / exterior signs of infection at surgical site - no wound drainage or dehiscence. Physical exam notable for stable vitals, afebrile here (last Tylenol 5 hours ago ), tenderness in LLQ and LLE. DDX includes but is not limited to: abscess, thromboembolism, constipation, anxiety. - CBC, CMP, Lipase, PT/INR, UA - 1g Ofirmev - 1L NS - CTAP w/ contrast - Duplex US 03/19/19 20:15 - CT with incarcerated spigelian hernia at LLQ surgical site - Call placed 3x to [facility]. 1x to Dr. Atkinson cell. - UA negative, CBC without leukocytosis or anemia, CMP unremarkable, Lipase and coags unremarkable 03/19/19 20:25 - Spoke with Dr. Atkinson who deferred to general surgery 03/19/19 20:35 - Spoke with Dr. Morrison, plan for NPO, pain control, IVF, no ABX, OR in the AM. Admit Med/Surg Discharge - Discharge Information Problems reviewed: Yes Clinical Impression/Diagnosis: Spigelian hernia Abdominal pain Qualifiers: Abdominal location: left lower quadrant Qualified Code(s): R10.32 - Left lower quadrant pain Condition: Guarded - Admission Yes - Follow up/Referral - Patient Discharge Instructions - Post Discharge Activity
[2019-03-19] MEDS ORDERED: ACETAMINOPHEN 1000 MG/100 ML VIAL (NON FORMULARY) IVPB ONE (14:09)
[2019-03-19] MEDS ORDERED: SODIUM CHLORIDE 0.9% 500 ML INFUS.BAG IV ONE (14:10)
[2019-03-19] MEDS ORDERED: ACETAMINOPHEN INJECTION 100 ML IVPB ONE (14:41)
[2019-03-19 14:58] LABS: BASO % 1.3 % (0-2.0); EOS % 3.1 % (0-4.5); HEMOGLOBIN 11.7 GM/dL (10.7-15.3); LYMPH % 31.9 % (8-40); MCHC 33.4 g/dl (32.0-36.0); MEAN CELL VOLUME 86.7 fl (80-96); MEAN PLT VOLUME 8.7 fl (7.5-11.1); NEUT % 56.7 % (42.8-82.8); PLATELET COUNT 326 K/MM3 (134-434); RBC 4.04 M/mm3 (3.60-5.2); RDW 13.1 % (11.6-15.6); WHITE BLOOD COUNT 8.5 K/mm3 (4.0-10.0)
[2019-03-19 15:09] LABS: INR 1.03 (0.83-1.09); PROTHROMBIN TIME (PATIENT) 12.2 SEC (9.7-13.0)
--- NOTE | 2019-03-19 15:09 | PDOC ---
Documentation entered by Josefina Girard SCRIBE, acting as scribe for Harish Darby MD. Harish Darby MD: This documentation has been prepared by the Era ballesteros Brenda, SCRIBE, under my direction and personally reviewed by me in its entirety. I confirm that the documentation accurately reflects all work, treatment, procedures, and medical decision making performed by me. Attending Attestation - Resident Resident Name: Nacho Horn - ED Attending Attestation I have performed the following: I have examined & evaluated the patient, The case was reviewed & discussed with the resident, I agree w/resident's findings & plan, Exceptions are as noted - HPI HPI: 03/19/19 14:16 The patient is a 73 year old female, with a significant PMH of gastritis, esophageal ulcer, HTN, HLD, hypothyroidism, chronic neck pain, PTSD, anxiety and depression, who presents to the emergency department with progressively worsening lower abdominal pain. Pt had L oophorectomy and bilateral salpingectomy 03/10/19. Pt endorses constant pain since her surgery but states that the pain has gotten worse since running out of her pain medication ( oxycodone). She denies any drainage, redness or swelling from her surgical sight. Pt endorses subjective fevers. Denies N/V. Denies diarrhea/constipation. The patient denies chest pain, shortness of breath, headache and dizziness. Denies nausea, vomiting, diarrhea and constipation.Denies dysuria, frequency, urgency and hematuria. Allergies: NKA Past surgical history: ooperectomy and bilateral salpingectomy (03/10/19), ex- lap. Social history: No reported history of smoking, alcohol use or illicit drug use. - Physicial Exam PE: 03/19/19 14:16 GENERAL: Awake, alert, and fully oriented, in no acute distress. HEAD: No signs of trauma EYES: PERRLA, EOMI, sclera anicteric, conjunctiva clear ENT: Auricles normal inspection, hearing grossly normal, nares patent, oropharynx clear without exudates. Moist mucosa NECK: Nontender, no stepoffs, Normal ROM, supple, no lymphadenopathy, JVD, or masses LUNGS: Breath sounds equal, clear to auscultation bilaterally. No wheezes, and no crackles HEART: Regular rate and rhythm, normal S1 and S2, no murmurs, rubs or gallops ABDOMEN: + surgical incision clean, healing well, + tenderness in LLQ, normoactive bowel sounds. No guarding, no rebound. No masses EXTREMITIES: Normal range of motion, no edema. No clubbing or cyanosis. No cords, erythema, or tenderness NEUROLOGICAL: Cranial nerves II through XII intact. 5/5 strength and sensation in all extremities, Normal speech, normal gait, normal cerebellar function SKIN: Warm, Dry, normal turgor, no rashes or lesions noted. - Medical Decision Making 03/19/19 15:13 73 F with LLQ pain. S/p oophorectomy and salpingectomy 9 days ago. Will r/o post -op infection. - Labs - CTAP - Pain control
[2019-03-19 15:31] LABS: ALBUMIN 3.8 g/dl (3.4-5.0); BILIRUBIN,TOTAL 0.4 mg/dL (0.2-1); BLOOD UREA NITROGEN 23.3 mg/dL (7-18); CALCIUM 9.3 mg/dL (8.5-10.1); CREATININE 1.4 mg/dL (0.55-1.3); POTASSIUM 3.8 mmol/L (3.5-5.1)
[2019-03-19 19:20] LABS: URINE APPEARANCE CLEAR; URINE BILIRUBIN NEGATIVE (NEGATIVE); URINE COLOR YELLOW; URINE GLUCOSE (UA) NEGATIVE (NEGATIVE); URINE KETONE NEGATIVE (NEGATIVE); URINE LEUK ESTERASE NEGATIVE (NEGATIVE); URINE NITRITE NEGATIVE (NEGATIVE); URINE PROTEIN NEGATIVE (NEGATIVE); URINE UROBILINOGEN 0.2 mg/dL (0.2-1.0)
[2019-03-19] MEDS ORDERED: morphine CARPU-JECT 4 MG/1 ML DISP.SYRIN IVPUSH ONE (20:28)
[2019-03-19] MEDS ORDERED: morphine SULFATE 4 MG/ML VIAL ONE (21:02)
[2019-03-19] MEDS: LACTATED RINGERS SOLUTION 1,000 ML/1,000 ML INFUS.BAG IV SCH (21:15)
--- NOTE | 2019-03-19 22:02 | HP ---
CHIEF COMPLAINT: abdominal pain PCP: Tami HISTORY OF PRESENT ILLNESS: This is a 73yF who is s/p Laproscopic Left oopherectomy and bilateral salpingectomy on 03/10/19 who presented to the ED with progressively worsening abdominal pain for the past several days. Pt reports some nausea as well but denies vomiting. ER course was notable for: (1) CT abdomen and pelvis with incarcerated hernia (2) Treated with morphine 4mg for pain Recent Travel: pt denies PAST MEDICAL HISTORY: HTN, HLD, gastritis, esophageal ulcer, hypothyroidism, PTSD, anxiety and depression PAST SURGICAL HISTORY: possible cholecystectomy many years ago Social History: Smoking: pt denies Alcohol: pt denies Drugs: pt denies Allergies apple Allergy (Intermediate, Verified 03/19/19 17:17) ITCHY No Known Drug Allergies Allergy (Verified 03/19/19 17:17) CHERRIES Allergy (Intermediate, Uncoded 03/19/19 17:17) ITCHY FISH Allergy (Intermediate, Uncoded 03/19/19 17:17) ITCHY HOME MEDICATIONS: 3 Medication Instructions Recorded Fluoxetine HCl [Prozac] 20 mg PO DAILY 10/17/16 Acetaminophen [Tylenol .Regular 650 mg PO Q6H PRN #120 tablet 10/20/16 Strength -] Atorvastatin Ca [Lipitor] 20 mg PO HS #30 tablet 10/20/16 Hydrochlorothiazide [Hctz -] 12.5 mg PO DAILY #30 cap 10/20/16 Levothyroxine [Synthroid -] 75 mcg PO DAILY@0700 #30 tablet 10/20/16 Omeprazole 40 mg PO DAILY 09/29/17 Acetaminophen [Tylenol Extra 1,000 mg PO Q6H #30 tablet 06/04/18 Strength] Alendronate Sodium [Fosamax] 1 tab PO WEEKLY 03/10/19 oxyCODONE HCL [Roxicodone -] 5 mg PO Q6H PRN #10 tablet MDD 4 03/10/19 REVIEW OF SYSTEMS CONSTITUTIONAL: Absent: fever, chills, diaphoresis, generalized weakness, malaise, loss of appetite, weight change HEENT: Absent: rhinorrhea, nasal congestion, throat pain, throat swelling, difficulty swallowing, mouth swelling, ear pain, eye pain, visual changes CARDIOVASCULAR: Absent: chest pain, syncope, palpitations, irregular heart rate, lightheadedness , peripheral edema RESPIRATORY: Absent: cough, shortness of breath, dyspnea with exertion, orthopnea, wheezing, stridor, hemoptysis GASTROINTESTINAL: Present: abdominal pain, nausea Absent: abdominal distension, vomiting, diarrhea, constipation, melena, hematochezia GENITOURINARY: Absent: dysuria, frequency, urgency, hesitancy, hematuria, flank pain, genital pain MUSCULOSKELETAL: Absent: myalgia, arthralgia, joint swelling, back pain, neck pain SKIN: Absent: rash, itching, pallor HEMATOLOGIC/IMMUNOLOGIC: Absent: easy bleeding, easy bruising, lymphadenopathy, frequent infections ENDOCRINE: Absent: unexplained weight gain, unexplained weight loss, heat intolerance, cold intolerance NEUROLOGIC: Absent: headache, focal weakness or paresthesias, dizziness, unsteady gait, seizure, mental status changes, bladder or bowel incontinence PSYCHIATRIC: Absent: anxiety, depression, suicidal or homicidal ideation, hallucinations. PHYSICAL EXAMINATION Vital Signs - 24 hr 3 03/19/19 03/19/19 03/19/19 12:37 16:37 18:44 Temperature 97.9 F 98.6 F 98.0 F Pulse Rate 80 Pulse Rate [ 85 60 Apical] Respiratory 16 19 18 Rate Blood Pressure 135/9 L Blood Pressure 135/87 121/67 [Right Arm] O2 Sat by Pulse 98 97 99 Oximetry (%) GENERAL: Awake, alert, and fully oriented, in no acute distress. HEAD: Normal with no signs of trauma. EYES: Pupils equal, round and reactive to light, extraocular movements intact, sclera anicteric, conjunctiva clear. No lid lag. EARS, NOSE, THROAT: Ears normal, nares patent, oropharynx clear without exudates. Moist mucous membranes. NECK: Normal range of motion, supple without lymphadenopathy, JVD, or masses. LUNGS: Breath sounds equal, clear to auscultation bilaterally. No wheezes, and no crackles. No accessory muscle use. HEART: Regular rate and rhythm, normal S1 and S2 without murmur, rub or gallop. ABDOMEN: Soft, tender LLQ, not distended, normoactive bowel sounds. No hepatomegaly or splenomegaly. MUSCULOSKELETAL: Normal range of motion at all joints. No bony deformities or tenderness. No CVA tenderness. UPPER EXTREMITIES: 2+ pulses, warm, well-perfused. No cyanosis. No clubbing. No peripheral edema. LOWER EXTREMITIES: 2+ pulses, warm, well-perfused. No calf tenderness. No peripheral edema. NEUROLOGICAL: Cranial nerves II-XII intact. Normal speech. Normal gait. PSYCHIATRIC: Cooperative. Good eye contact. Appropriate mood and affect. SKIN: Warm, dry, normal turgor, no rashes or lesions noted, normal capillary refill. Laboratory Results - last 24 hr 3 03/19/19 03/19/19 03/19/19 14:42 14:42 14:42 WBC 8.5 RBC 4.04 Hgb 11.7 Hct 35.0 MCV 86.7 MCH 29.0 MCHC 33.4 RDW 13.1 Plt Count 326 D MPV 8.7 Absolute Neuts (auto) 4.8 Neutrophils % 56.7 Lymphocytes % 31.9 Monocytes % 7.0 Eosinophils % 3.1 Basophils % 1.3 Nucleated RBC % 0 PT with INR INR Sodium 137 Potassium 3.8 Chloride 103 Carbon Dioxide 27 Anion Gap 7 L BUN 23.3 H Creatinine 1.4 H Est GFR (CKD-EPI)AfAm 43.09 Est GFR (CKD-EPI)NonAf 37.18 Random Glucose 114 H Calcium 9.3 Total Bilirubin 0.4 AST 22 ALT 30 Alkaline Phosphatase 106 Total Protein 7.0 Albumin 3.8 Lipase 275 Urine Color Urine Appearance Urine pH Ur Specific [place] Urine Protein Urine Glucose (UA) Urine Ketones Urine Blood Urine Nitrite Urine Bilirubin Urine Urobilinogen Ur Leukocyte Esterase Blood Type Antibody Screen 3 03/19/19 03/19/19 03/19/19 14:42 18:56 20:20 WBC RBC Hgb Hct MCV MCH MCHC RDW Plt Count MPV Absolute Neuts (auto) Neutrophils % Lymphocytes % Monocytes % Eosinophils % Basophils % Nucleated RBC % PT with INR 12.20 INR 1.03 Sodium Potassium Chloride Carbon Dioxide Anion Gap BUN Creatinine Est GFR (CKD-EPI)AfAm Est GFR (CKD-EPI)NonAf Random Glucose Calcium Total Bilirubin AST ALT Alkaline Phosphatase Total Protein Albumin Lipase Urine Color Yellow Urine Appearance Clear Urine pH 5.0 Ur Specific [place] 1.009 L Urine Protein Negative Urine Glucose (UA) Negative Urine Ketones Negative Urine Blood Negative Urine Nitrite Negative Urine Bilirubin Negative Urine Urobilinogen 0.2 Ur Leukocyte Esterase Negative Blood Type O POSITIVE Antibody Screen Negative CT abdomen/pelvis IMPRESSION: Incarcerated spigelian hernia within the left lower quadrant. Clinical correlation advised. Please see above discussion. Reported By: Bhavesh Garcia MD 03/19/19 0886 US doppler B/L LE Impression: There is no evidence of deep venous thromboses in both lower extremities. Reported By: Thomas Peacock MD 03/19/19 6830 ASSESSMENT/PLAN: 73yF with PMH HTN, HLD, gastritis, hypothyroid, s/p L oopherectomy, B/L salpingotomy 03/10/19 presented to the ED with abdominal pain now admitted with incarcerated hernia. Incarcerated hernia - surgery consulted, to go to OR in am - NPO - morphine IV PRN pain HTN, HLD - cont home lipitor, hold HCTZ until postop h/o gastritis, esophageal ulcer - home omeprazole converted to formulary protonix Hypothyroid - cont home synthroid - check TSH with am labs depression/anxiety/PTSD - cont home fluoxetine DVT PPX - heparin SC after OR FEN - NPO for now - monitor BMP in am Dispo: pt currently requires inpatient management of her emergent condition. Family Medical History Family Hx Dementia: Mother (Alzheimers) Other Family History: pt does not know father or his children. Visit type - Emergency Visit Emergency Visit: Yes ED Registration Date: 03/19/19 Care time: The patient presented to the Emergency Department on the above date and was hospitalized for further evaluation of their emergent condition. - New Patient This patient is new to me today: Yes Date on this admission: 03/19/19 - Critical Care Critical Care patient: No
[2019-03-20 00:28] VITALS: BMI 34.3
[2019-03-20] MEDS ORDERED: MORPHINE SULFATE 2 MG/ML VIAL IVPUSH PRN ×2 (00:59→16:43)
[2019-03-20] MEDS: LACTATED RINGERS SOLUTION 1,000 ML/1,000 ML INFUS.BAG IV SCH ×4 (01:29→18:06)
[2019-03-20] MEDS ORDERED: LEVOTHYROXINE NA 75 MCG TABLET (FP) PO SCH (07:00)
[2019-03-20 08:19] LABS: BASO % 0.9 % (0-2.0); EOS % 3.9 % (0-4.5); HEMATOCRIT 31.5 % (32.4-45.2); HEMOGLOBIN 10.7 GM/dL (10.7-15.3); MCH 29.3 pg (25.7-33.7); MEAN CELL VOLUME 86.1 fl (80-96); MEAN PLT VOLUME 8.9 fl (7.5-11.1); MONO % 8.2 % (3.8-10.2); PLATELET COUNT 312 K/MM3 (134-434); RBC 3.66 M/mm3 (3.60-5.2); RDW 13.3 % (11.6-15.6); WHITE BLOOD COUNT 6.4 K/mm3 (4.0-10.0)
[2019-03-20 08:58] LABS: BLOOD UREA NITROGEN 17.9 mg/dL (7-18); CALCIUM 8.7 mg/dL (8.5-10.1); CREATININE 1.2 mg/dL (0.55-1.3); MAGNESIUM 1.8 mg/dL (1.8-2.4); PHOSPHOROUS 3.2 mg/dL (2.5-4.9); POTASSIUM 3.7 mmol/L (3.5-5.1)
[2019-03-20] MEDS ORDERED: PT OWN MED DRAWER 7, Y5N ONE (09:27)
--- NOTE | 2019-03-20 09:42 | CONSULT ---
- Consultation REQUESTING PROVIDER: Kory PARMAR CONSULT REQUEST: We have been asked to surgically evaluate this patient for an incarcerated Spigelian hernia. 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 w/u was done w/ a CT scan of the a/p; PMHx: thyroid disease/HLD/HTN/osteoporosis PSHx: as noted above Home Medications Medication Instructions Recorded Fluoxetine HCl [Prozac] 20 mg PO DAILY 10/17/16 Acetaminophen [Tylenol .Regular 650 mg PO Q6H PRN #120 tablet 10/20/16 Strength -] Atorvastatin Ca [Lipitor] 20 mg PO HS #30 tablet 10/20/16 Hydrochlorothiazide [Hctz -] 12.5 mg PO DAILY #30 cap 10/20/16 Levothyroxine [Synthroid -] 75 mcg PO DAILY@0700 #30 tablet 10/20/16 Omeprazole 40 mg PO DAILY 09/29/17 Acetaminophen [Tylenol Extra 1,000 mg PO Q6H #30 tablet 06/04/18 Strength] Alendronate Sodium [Fosamax] 1 tab PO WEEKLY 03/10/19 oxyCODONE HCL [Roxicodone -] 5 mg PO Q6H PRN #10 tablet MDD 4 03/10/19 Allergies Allergy/AdvReac Type Severity Reaction Status Date / Time apple Allergy Intermediate ITCHY Verified 03/19/19 17:17 No Known Drug Allergies Allergy Verified 03/19/19 17:17 CHERRIES Allergy Intermediate ITCHY Uncoded 03/19/19 17:17 FISH Allergy Intermediate ITCHY Uncoded 03/19/19 17:17 REVIEW OF SYSTEMS: CONSTITUTIONAL: Absent: fever, chills, diaphoresis, generalized weakness, malaise, loss of appetite, weight change CARDIOVASCULAR: Absent: chest pain, syncope, palpitations, irregular heart rate, lightheadedness , peripheral edema RESPIRATORY: Absent: cough, shortness of breath, dyspnea with exertion, wheezing, stridor, hemoptysis GASTROINTESTINAL: Present: abdominal pain, abdominal distension, nausea, vomiting GENITOURINARY: Absent: dysuria, frequency, urgency, hesitancy, hematuria, flank pain, genital pain Present: pelvic pain MUSCULOSKELETAL: Absent: myalgia, arthralgia, joint swelling, back pain, neck pain SKIN: Absent: rash, itching, pallor HEMATOLOGIC/IMMUNOLOGIC: Absent: easy bleeding, easy bruising, lymphadenopathy NEUROLOGIC: Absent: headache, focal weakness, paresthesias, dizziness, unsteady gait, seizure, mental status changes, bladder or bowel incontinence PSYCHIATRIC: Absent: anxiety, depression, suicidal or homicidal ideation, hallucinations. PHYSICAL EXAM: GENERAL: Awake, alert, and fully oriented, in no acute distress. HEAD: Normal with no signs of trauma. EYES: PERRL, sclera anicteric, conjunctiva clear. NECK: Normal ROM, supple without lymphadenopathy, JVD, or masses. ABDOMEN: Soft, tender LLQ port site w/associated STS and mild ecchymosis, not distended, normoactive bowel sounds, no rebound, no masses. No organomegaly. Remainder of port sites unremarkable. MUSCULOSKELETAL: Normal ROM at all joints. No bony deformities or tenderness. No CVA tenderness. UPPER EXTREMITIES: 2+ pulses, warm, well-perfused. No cyanosis. Cap refill <2 seconds. No peripheral edema. LOWER EXTREMITIES: 2+ pulses, warm, well-perfused. No calf tenderness. No peripheral edema. NEUROLOGICAL: Normal speech, gait not observed. PSYCH: Cooperative. Good eye contact. Appropriate mood and affect. SKIN: Warm, dry, normal turgor, no rashes or lesions noted. Vital Signs Temperature 98.2 F 03/20/19 04:54 Pulse Rate 64 03/20/19 04:54 Respiratory Rate 18 03/20/19 04:54 Blood Pressure 158/78 03/20/19 04:54 O2 Sat by Pulse Oximetry (%) 99 03/20/19 01:19 Lab Results WBC 6.4 K/mm3 (4.0-10.0) 03/20/19 07:00 RBC 3.66 M/mm3 (3.60-5.2) 03/20/19 07:00 Hgb 10.7 GM/dL (10.7-15.3) 03/20/19 07:00 Hct 31.5 % (32.4-45.2) L 03/20/19 07:00 MCV 86.1 fl (80-96) 03/20/19 07:00 MCHC 34.0 g/dl (32.0-36.0) 03/20/19 07:00 RDW 13.3 % (11.6-15.6) 03/20/19 07:00 Plt Count 312 K/MM3 (134-434) 03/20/19 07:00 Sodium 141 mmol/L (136-145) 03/20/19 07:00 Potassium 3.7 mmol/L (3.5-5.1) 03/20/19 07:00 Chloride 107 mmol/L (98-107) 03/20/19 07:00 Carbon Dioxide 27 mmol/L (21-32) 03/20/19 07:00 Anion Gap 7 MMOL/L (8-16) L 03/20/19 07:00 BUN 17.9 mg/dL (7-18) 03/20/19 07:00 Creatinine 1.2 mg/dL (0.55-1.3) 03/20/19 07:00 Random Glucose 92 mg/dL (74-106) 03/20/19 07:00 Calcium 8.7 mg/dL (8.5-10.1) 03/20/19 07:00 Blood Type O POSITIVE 03/19/19 20:20 Antibody Screen Negative 03/19/19 20:20 INR 1.03 (0.83-1.09) 03/19/19 14:42 CT scan a/p reviewed and c/w incarcerated port site hernia IMP: incarcerated port site hernia PLAN: D/w the patient open port site hernia repair w/possible mesh; r/b/t/a/'s d /w the patient and she wishes to proceed; we also discussed there is a high risk of recurrence. Harish Morrison MD FACS
[2019-03-20] MEDS ORDERED: PATIENT'S OWN MEDICATION (NON-FORMULARY) (Omeprazole [Omeprazole] 40 MG) PO SCH (10:00)
[2019-03-20] MEDS ORDERED: FLUoxetine HCL 20 MG CAPSULE (FP) PO SCH (10:00)
[2019-03-20] MEDS ORDERED: PANTOPRAZOLE 20 MG TABLET (FP) PO SCH (10:00)
--- NOTE | 2019-03-20 11:54 | EKG ---
Test Reason : Blood Pressure : / mmHG Vent. Rate : 058 BPM Atrial Rate : 058 BPM P-R Int : 174 ms QRS Dur : 086 ms QT Int : 452 ms P-R-T Axes : 051 010 014 degrees QTc Int : 443 ms SINUS BRADYCARDIA NONSPECIFIC T WAVE ABNORMALITY ABNORMAL ECG WHEN COMPARED WITH ECG OF 13-FEB-2018 18:02, NO SIGNIFICANT CHANGE WAS FOUND Confirmed by MARGUERITE VALLADARES MD ([id number]) on 03/20/2019 11:53:55 AM Referred By: Confirmed By:MARGUERITE VALLADARES MD
[2019-03-20] MEDS ORDERED: ONDANSETRON 4 MG/2 ML VIAL IVPUSH PRN ×2 (12:50→16:43)
[2019-03-20] MEDS ORDERED: LIDOCAINE HCL/PF 2% SDV 5ML VIAL ONE (12:53)
[2019-03-20] MEDS ORDERED: ceFAZolin SODIUM 1 GM VIAL ONE (12:53)
[2019-03-20] MEDS ORDERED: ROCURONIUM BROMIDE 50 MG/5 ML SYRINGE ONE (12:54)
[2019-03-20] MEDS ORDERED: MIDAZOLAM HCL 2 MG/2 ML SINGLE DOSE VIAL ONE (12:54)
[2019-03-20] MEDS ORDERED: PROPOFOL 20 ML ONE (12:54)
[2019-03-20] MEDS ORDERED: BUPIVACAINE HCL/PF 0.5% (5 MG/ML) 30 ML VIAL IJ ONE (13:22)
[2019-03-20] MEDS ORDERED: ceFAZolin SODIUM 1 GM VIAL IVPB ONE (13:25)
[2019-03-20] MEDS ORDERED: DEXAMETHASONE SOD PHOSPHATE 4 MG/1 ML VIAL ONE (13:41)
[2019-03-20] MEDS ORDERED: GLYCOPYRROLATE 0.2 MG/1 ML VIAL ONE (13:41)
[2019-03-20] MEDS ORDERED: NEOSTIGMINE METHYLSULFATE 0.5 MG/ML - 10 ML MDV ONE (13:41)
[2019-03-20] MEDS ORDERED: BUPIVACAINE HCL/PF 0.5% (5MG/ML) 10 ML VIAL IJ ONE ×3 (13:50)
[2019-03-20] MEDS ORDERED: KETOROLAC TROMETHAMINE 30 MG/1 ML VIAL ONE (13:52)
[2019-03-20] MEDS ORDERED: HEPARIN NA (PORCINE) 5,000 UNITS/ML 1ML VIAL SQ SCH (14:00)
--- NOTE | 2019-03-20 14:27 | OP ---
Operative Note - Note: Operative Date: 03/20/19 Pre-Operative Diagnosis: incarcerated port site (incisional) hernia Operation: repair incarcerated port site (incisional) hernia Findings: at least 2.0 cm.fascial defect w/incarcerated omentum. Post-Operative Diagnosis: Same as Pre-op Surgeon: Harish Morrison Buff Wheel Fabricator: Curtis Bullard Anesthesiologist/CARDROOM HAND: Mell Nolen Anesthesia: General Specimens Removed: incarcerated omentum Estimated Blood Loss (mls): 15 Drains & Tubes with Location: none
[2019-03-20] MEDS ORDERED: ONDANSETRON 4 MG/2 ML VIAL ONE (14:37)
--- NOTE | 2019-03-20 16:19 | SURG ---
Surgery Reo Asset Manager Note Reo Asset Manager: Curtis Bullard PA-C Date of Service: 03/20/19 Diagnosis: incarcerated port site (incisional) hernia Procedure: repair incarcerated port site (incisional) hernia I was present for the entirety of the operative procedure. For further detail, please refer to operative report. Visit type - Case Type Case Type: ED Admission - New patient This patient is new to me today: Yes Date on this admission: 03/20/19
[2019-03-20] MEDS ORDERED: ACETAMINOPHEN 325 MG TABLET (FP) PO PRN (16:20)
[2019-03-20] MEDS ORDERED: PATIENT'S OWN MEDICATION (NON-FORMULARY) (Alendronate Sodium [Fosamax] 1 TAB) PO SCH (16:30)
[2019-03-20] MEDS: ACETAMINOPHEN 500 MG TABLET (FP) PO SCH ×2 (17:59→23:11)
[2019-03-20] MEDS ORDERED: ATORVASTATIN CA 20 MG TABLET (FP) PO SCH (22:00)
--- NOTE | 2019-03-20 22:18 | PN ---
Progress Note, Physician Chief Complaint: AWAKE ALERT NO FVER OR CHILLS TO BE TRANSFERRED TO O.R. FOR INCARCERATED HERNIA REPAIR - Current Medication List Current Medications: Active Medications Acetaminophen (Tylenol -) 650 mg PO Q6H PRN PRN Reason: FEVER Acetaminophen (Tylenol -) 1,000 mg PO Q6HPO [facility] Last Admin: 03/20/19 17:59 Dose: 1,000 mg Atorvastatin Calcium (Lipitor -) 20 mg PO HS [facility] Fentanyl (Sublimaze Injection -) 50 mcg IVPUSH [id number] PRN PRN Reason: PAIN-PACU ORDER X 4 DOSES ONLY Stop: 03/21/19 16:42 Last Admin: 03/20/19 15:55 Dose: 25 mcg Fluoxetine HCl (Prozac -) 20 mg PO DAILY [facility] Heparin Sodium (Porcine) (Heparin -) 5,000 unit SQ TID [facility] Hydrochlorothiazide (Hctz -) 12.5 mg PO DAILY [facility] Lactated Ringer's (Lactated Ringers Solution) 1,000 ml in 1,000 mls @ 125 mls/ hr IV ASDIR [facility] Last Admin: 03/20/19 18:06 Dose: 125 mls/hr Levothyroxine Sodium (Synthroid -) 75 mcg PO DAILY@0700 [facility] Morphine Sulfate (Morphine Sulfate) 2 mg IVPUSH Q4H PRN PRN Reason: PAIN LEVEL 6-10 Ondansetron HCl (Zofran Injection) 4 mg IVPUSH Q6H PRN PRN Reason: NAUSEA AND/OR VOMITING Stop: 03/21/19 16:42 Pantoprazole Sodium (Protonix -) 20 mg PO DAILY [facility] - Objective Vital Signs: Vital Signs Temperature 98.0 F 03/20/19 17:25 Pulse Rate 76 03/20/19 17:25 Respiratory Rate 20 03/20/19 17:25 Blood Pressure 115/69 03/20/19 17:25 O2 Sat by Pulse Oximetry (%) 96 03/20/19 17:25 Constitutional: Yes: Mild Distress Cardiovascular: Yes: Regular Rate and Rhythm Respiratory: Yes: WNL Gastrointestinal: Yes: Palpable Mass, Tenderness Genitourinary: Yes: WNL Labs: CBC, BMP 03/20/19 07:00 03/20/19 07:00 INR, PTT INR 1.03 (0.83-1.09) 03/19/19 14:42 Problem List - Problems (1) Abdominal pain Code(s): R10.9 - UNSPECIFIED ABDOMINAL PAIN Qualifiers: Abdominal location: left lower quadrant Qualified Code(s): R10.32 - Left lower quadrant pain (2) Spigelian hernia Code(s): K43.9 - VENTRAL HERNIA WITHOUT OBSTRUCTION OR GANGRENE (3) HLD (hyperlipidemia) Code(s): E78.5 - HYPERLIPIDEMIA, UNSPECIFIED (4) HTN (hypertension) Code(s): I10 - ESSENTIAL (PRIMARY) HYPERTENSION Assessment/Plan MEDICALLY CLEARED FOR INCARCERATED HERNIA REPAIR BENEFIT OUTWEIGHS THE RISK. INCENTIVE SPIROMETRY POST -OP CHECK LABS DVT PROPHYLAXIS PAIN CONTROL
[2019-03-20] MEDS: HEPARIN NA (PORCINE) 5,000 UNITS/ML 1ML VIAL SQ SCH (23:10)
[2019-03-20] MEDS: ATORVASTATIN CA 20 MG TABLET (FP) PO SCH (23:11)
[2019-03-21] MEDS: LEVOTHYROXINE NA 75 MCG TABLET (FP) PO SCH (06:16)
[2019-03-21] MEDS: HEPARIN NA (PORCINE) 5,000 UNITS/ML 1ML VIAL SQ SCH ×3 (06:16→21:01)
[2019-03-21] MEDS: ACETAMINOPHEN 500 MG TABLET (FP) PO SCH ×4 (06:16→23:42)
[2019-03-21 08:28] LABS: ALBUMIN 3.1 g/dl (3.4-5.0); BILIRUBIN,TOTAL 0.4 mg/dL (0.2-1); BLOOD UREA NITROGEN 17.9 mg/dL (7-18); CALCIUM 8.6 mg/dL (8.5-10.1); CREATININE 1.5 mg/dL (0.55-1.3); POTASSIUM 4.2 mmol/L (3.5-5.1); TOT PROT 5.9 g/dl (6.4-8.2)
[2019-03-21 08:30] LABS: HEMATOCRIT 30.4 % (32.4-45.2); HEMOGLOBIN 10.1 GM/dL (10.7-15.3); MCH 28.9 pg (25.7-33.7); MCHC 33.3 g/dl (32.0-36.0); MEAN PLT VOLUME 9.1 fl (7.5-11.1); PLATELET COUNT 321 K/MM3 (134-434); RDW 13.3 % (11.6-15.6); WHITE BLOOD COUNT 11.4 K/mm3 (4.0-10.0)
--- NOTE | 2019-03-21 08:47 | PN ---
Progress Note, Physician Chief Complaint: s/p repair incarcerated hernia post op day one History of Present Illness: under general anesthesia - Current Medication List Current Medications: Active Medications Acetaminophen (Tylenol -) 650 mg PO Q6H PRN PRN Reason: FEVER Acetaminophen (Tylenol -) 1,000 mg PO Q6HPO [facility] Last Admin: 03/21/19 06:16 Dose: 1,000 mg Atorvastatin Calcium (Lipitor -) 20 mg PO HS [facility] Last Admin: 03/20/19 23:11 Dose: 20 mg Fentanyl (Sublimaze Injection -) 50 mcg IVPUSH [id number] PRN PRN Reason: PAIN-PACU ORDER X 4 DOSES ONLY Stop: 03/21/19 16:42 Last Admin: 03/20/19 15:55 Dose: 25 mcg Fluoxetine HCl (Prozac -) 20 mg PO DAILY [facility] Heparin Sodium (Porcine) (Heparin -) 5,000 unit SQ TID [facility] Last Admin: 03/21/19 06:16 Dose: 5,000 unit Hydrochlorothiazide (Hctz -) 12.5 mg PO DAILY [facility] Lactated Ringer's (Lactated Ringers Solution) 1,000 ml in 1,000 mls @ 125 mls/ hr IV ASDIR [facility] Last Admin: 03/20/19 18:06 Dose: 125 mls/hr Levothyroxine Sodium (Synthroid -) 75 mcg PO DAILY@0700 [facility] Last Admin: 03/21/19 06:16 Dose: 75 mcg Morphine Sulfate (Morphine Sulfate) 2 mg IVPUSH Q4H PRN PRN Reason: PAIN LEVEL 6-10 Ondansetron HCl (Zofran Injection) 4 mg IVPUSH Q6H PRN PRN Reason: NAUSEA AND/OR VOMITING Stop: 03/21/19 16:42 Pantoprazole Sodium (Protonix -) 20 mg PO DAILY [facility] - Objective Vital Signs: Vital Signs Temperature 97.4 F L 03/21/19 05:00 Pulse Rate 73 03/21/19 05:00 Respiratory Rate 20 03/21/19 05:00 Blood Pressure 126/60 03/21/19 05:00 O2 Sat by Pulse Oximetry (%) 96 03/20/19 21:00 Constitutional: Yes: Well Nourished Cardiovascular: Yes: WNL Respiratory: Yes: On Nasal O2 Gastrointestinal: Yes: Distention Labs: CBC, BMP 03/21/19 06:50 INR, PTT INR 1.03 (0.83-1.09) 03/19/19 14:42 Assessment/Plan Complaining of pain and constipation, no anesthetic complications, advised to ask for pain medications, no further intervention at this time
[2019-03-21] MEDS ORDERED: ALBUTEROL SO4 2.5/IPRATROPIUM 0.5 INH SOL 3 ML VIAL.NEB. NEB PRN (11:19)
[2019-03-21] MEDS ORDERED: SODIUM CHLORIDE NASAL SPRAY 44 ML BOTTLE NS PRN (11:19)
--- NOTE | 2019-03-21 11:23 | PN ---
Progress Note, Physician Chief Complaint: S/P HERNIA REPAIR NO FEVERS COUGH WITH NASAL CONGESTION - Current Medication List Current Medications: Active Medications Acetaminophen (Tylenol -) 650 mg PO Q6H PRN PRN Reason: FEVER Acetaminophen (Tylenol -) 1,000 mg PO Q6HPO [facility] Last Admin: 03/21/19 06:16 Dose: 1,000 mg Albuterol/Ipratropium (Duoneb -) 1 amp NEB Q6H PRN PRN Reason: SHORTNESS OF BREATH Atorvastatin Calcium (Lipitor -) 20 mg PO HS [facility] Last Admin: 03/20/19 23:11 Dose: 20 mg Fentanyl (Sublimaze Injection -) 50 mcg IVPUSH [id number] PRN PRN Reason: PAIN-PACU ORDER X 4 DOSES ONLY Stop: 03/21/19 16:42 Last Admin: 03/20/19 15:55 Dose: 25 mcg Fluoxetine HCl (Prozac -) 20 mg PO DAILY [facility] Fluticasone Propionate (Flonase -) 2 spray NS DAILY [facility] Heparin Sodium (Porcine) (Heparin -) 5,000 unit SQ TID [facility] Last Admin: 03/21/19 06:16 Dose: 5,000 unit Hydrochlorothiazide (Hctz -) 12.5 mg PO DAILY [facility] Lactated Ringer's (Lactated Ringers Solution) 1,000 ml in 1,000 mls @ 125 mls/ hr IV ASDIR [facility] Last Admin: 03/20/19 18:06 Dose: 125 mls/hr Levothyroxine Sodium (Synthroid -) 75 mcg PO DAILY@0700 [facility] Last Admin: 03/21/19 06:16 Dose: 75 mcg Loratadine (Claritin -) 10 mg PO DAILY [facility] Morphine Sulfate (Morphine Sulfate) 2 mg IVPUSH Q4H PRN PRN Reason: PAIN LEVEL 6-10 Ondansetron HCl (Zofran Injection) 4 mg IVPUSH Q6H PRN PRN Reason: NAUSEA AND/OR VOMITING Stop: 03/21/19 16:42 Pantoprazole Sodium (Protonix -) 20 mg PO DAILY [facility] Sodium Chloride ([place] Nasal [place] -) 2 spray NS TID PRN PRN Reason: NASAL CONGESTION - Objective Vital Signs: Vital Signs Temperature 97.4 F L 03/21/19 05:00 Pulse Rate 73 03/21/19 05:00 Respiratory Rate 20 03/21/19 05:00 Blood Pressure 126/60 03/21/19 05:00 O2 Sat by Pulse Oximetry (%) 96 03/20/19 21:00 Constitutional: Yes: Mild Distress Cardiovascular: Yes: Regular Rate and Rhythm Respiratory: Yes: Diminished, On Nasal O2 Gastrointestinal: Yes: Soft, Tenderness, Other Genitourinary: Yes: WNL Musculoskeletal: Yes: Muscle Weakness Edema: No Neurological: Yes: Pre-Existing Deficit Labs: CBC, BMP 03/21/19 06:50 03/21/19 06:50 INR, PTT INR 1.03 (0.83-1.09) 03/19/19 14:42 Problem List - Problems (1) Abdominal pain Code(s): R10.9 - UNSPECIFIED ABDOMINAL PAIN Qualifiers: Abdominal location: left lower quadrant Qualified Code(s): R10.32 - Left lower quadrant pain (2) Spigelian hernia Code(s): 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
[2019-03-21] MEDS ORDERED: MAGNESIUM HYDROX 2400MG/30ML ORAL SUSPENSION 30 ML CUP PO ONE (11:26)
[2019-03-21] MEDS ORDERED: SENNOSIDES 8.6MG TABLET (FP) PO PRN (11:26)
[2019-03-21] MEDS: FLUoxetine HCL 20 MG CAPSULE (FP) PO SCH (11:39)
[2019-03-21] MEDS: HYDROCHLOROTHIAZIDE 12.5 MG CAPSULE (FP) PO SCH (11:39)
[2019-03-21] MEDS: LORATADINE 10 MG TABLET PO SCH (11:39)
[2019-03-21] MEDS: PANTOPRAZOLE 20 MG TABLET (FP) PO SCH (11:39)
[2019-03-21] MEDS: oxyCODONE HCL 5 MG TABLET PO PRN ×2 (12:25→18:17)
--- NOTE | 2019-03-21 12:39 | PN ---
Progress Note (short form) - Note Progress Note: SURGERY 73yo F s/p incisional hernia repair POD 1, pt seen and examined at bedside. Pt complains of pain around incision site. Pt denies n/v, fever, chills. States tolerating PO. Last Vital Signs Temp Pulse Resp BP Pulse Ox 97.4 F L 73 20 126/60 96 03/21/19 05:00 03/21/19 05:00 03/21/19 05:00 03/21/19 05:00 03/20/19 21:00 CBC, BMP 03/21/19 06:50 03/21/19 06:50 PE: Gen: A&OX 3 Resp: breathing comfortably Abd: soft, nondistended, moderate tenderness around Lt abd incision, incision clean with no erythema or discharge. Ext: no edema Problem List - Problems (1) Incisional hernia, incarcerated Assessment/Plan: Plan -pt is cleared from surgery standpoint. -pt should follow up with Dr. Morrison in the office for follow up. Pt discussed with Dr. Morrison who agrees with plan Code(s): K43.0 - INCISIONAL HERNIA WITH OBSTRUCTION, WITHOUT GANGRENE
[2019-03-21] MEDS: FLUTICASONE PROP 0.05% 16 GM NASAL SPRAY NS SCH (15:40)
[2019-03-21] MEDS: AMOXICILLIN - 500 MG, AMOXICILLIN - 250 MG PO SCH ×2 (15:41→21:02)
[2019-03-21] MEDS ORDERED: PT OWN MED DRAWER 7, Y5N ONE (20:40)
[2019-03-21] MEDS: ATORVASTATIN CA 20 MG TABLET (FP) PO SCH (21:00)
[2019-03-21] MEDS ORDERED: AMOXICILLIN 250 MG CAPSULE PO SCH (22:00)
[2019-03-22] MEDS: HEPARIN NA (PORCINE) 5,000 UNITS/ML 1ML VIAL SQ SCH (06:07)
[2019-03-22] MEDS: ACETAMINOPHEN 500 MG TABLET (FP) PO SCH (06:08)
[2019-03-22 06:21] VITALS: TEMP 97.9
[2019-03-22] MEDS: LEVOTHYROXINE NA 75 MCG TABLET (FP) PO SCH (06:39)
[2019-03-22 08:26] LABS: HEMATOCRIT 32.6 % (32.4-45.2); HEMOGLOBIN 10.7 GM/dL (10.7-15.3); MCH 28.8 pg (25.7-33.7); MCHC 32.8 g/dl (32.0-36.0); MEAN CELL VOLUME 87.8 fl (80-96); MEAN PLT VOLUME 9.1 fl (7.5-11.1); PLATELET COUNT 330 K/MM3 (134-434); RBC 3.72 M/mm3 (3.60-5.2); RDW 13.5 % (11.6-15.6)
[2019-03-22 08:46] LABS: BLOOD UREA NITROGEN 21.6 mg/dL (7-18); CALCIUM 8.7 mg/dL (8.5-10.1); CREATININE 1.4 mg/dL (0.55-1.3); POTASSIUM 4.1 mmol/L (3.5-5.1)
[2019-03-22 09:12] VITALS: BP 136/68; PULSE 66
--- NOTE | 2019-03-22 09:35 | PN ---
Progress Note, Physician Chief Complaint: Incarcerated hernia History of Present Illness: Operative Date: 03/20/19 Pre-Operative Diagnosis: incarcerated port site (incisional) hernia Operation: repair incarcerated port site (incisional) hernia Findings: at least 2.0 cm.fascial defect w/incarcerated omentum. Post-Operative Diagnosis: Same as Pre-op Surgeon: Harish Morrison - Current Medication List Current Medications: Active Medications Acetaminophen (Tylenol -) 650 mg PO Q6H PRN PRN Reason: FEVER Acetaminophen (Tylenol -) 1,000 mg PO Q6HPO [facility] Last Admin: 03/22/19 06:08 Dose: 1,000 mg Albuterol/Ipratropium (Duoneb -) 1 amp NEB Q6H PRN PRN Reason: SHORTNESS OF BREATH Amoxicillin 500 mg/ (Amoxicillin 250 mg) 750 mg PO BID [facility] Last Admin: 03/21/19 21:02 Dose: 750 mg Atorvastatin Calcium (Lipitor -) 20 mg PO HS [facility] Last Admin: 03/21/19 21:00 Dose: 20 mg Fluoxetine HCl (Prozac -) 20 mg PO DAILY [facility] Last Admin: 03/21/19 11:39 Dose: 20 mg Fluticasone Propionate (Flonase -) 2 spray NS DAILY [facility] Last Admin: 03/21/19 15:40 Dose: 2 sprays Heparin Sodium (Porcine) (Heparin -) 5,000 unit SQ TID [facility] Last Admin: 03/22/19 06:07 Dose: 5,000 unit Hydrochlorothiazide (Hctz -) 12.5 mg PO DAILY [facility] Last Admin: 03/21/19 11:39 Dose: 12.5 mg Levothyroxine Sodium (Synthroid -) 75 mcg PO DAILY@0700 [facility] Last Admin: 03/22/19 06:39 Dose: 75 mcg Loratadine (Claritin -) 10 mg PO DAILY [facility] Last Admin: 03/21/19 11:39 Dose: 10 mg Oxycodone HCl (Roxicodone -) 5 mg PO Q6H PRN PRN Reason: PAIN LEVEL 7 - 10 Last Admin: 03/21/19 18:17 Dose: 5 mg Pantoprazole Sodium (Protonix -) 20 mg PO DAILY [facility] Last Admin: 03/21/19 11:39 Dose: 20 mg Senna (Senna -) 2 tab PO HS PRN PRN Reason: CONSTIPATION Last Admin: 03/22/19 06:23 Dose: 2 tab Sodium Chloride ([place] Nasal [place] -) 2 spray NS TID PRN PRN Reason: NASAL CONGESTION - Objective Vital Signs: Vital Signs Temperature 97.9 F 03/22/19 05:00 Pulse Rate 66 03/22/19 09:00 Respiratory Rate 18 03/22/19 09:00 Blood Pressure 136/68 03/22/19 09:00 O2 Sat by Pulse Oximetry (%) 96 03/21/19 20:45 Constitutional: Yes: Well Nourished, No Distress, Calm, Obese Cardiovascular: Yes: Regular Rate and Rhythm Respiratory: Yes: Regular Gastrointestinal: Yes: Normal Bowel Sounds, Soft, Abdomen, Obese Genitourinary: Yes: WNL Musculoskeletal: Yes: WNL Extremities: Yes: WNL Edema: No Peripheral Pulses WNL: Yes Wound/Incision: Yes: Dressing Dry and Intact Neurological: Yes: Alert, Oriented Psychiatric: Yes: Alert, Oriented Labs: CBC, BMP 03/22/19 07:26 03/22/19 07:26 INR, PTT INR 1.03 (0.83-1.09) 03/19/19 14:42 Problem List - Problems (1) Abdominal pain Assessment/Plan: 2/2 to incarcerated hernia -Pain well controlled Problems reviewed: Yes Code(s): R10.9 - UNSPECIFIED ABDOMINAL PAIN Qualifiers: Abdominal location: left lower quadrant Qualified Code(s): R10.32 - Left lower quadrant pain (2) Incisional hernia, incarcerated Assessment/Plan: -Post op day 2 -Tolerating diet -Leukocytosis- borderline elevation 2/2 to inflammatory response -Did well with PT -D/C home in AM Code(s): K43.0 - INCISIONAL HERNIA WITH OBSTRUCTION, WITHOUT GANGRENE Assessment/Plan see problem list
[2019-03-22] MEDS: LORATADINE 10 MG TABLET PO SCH (10:47)
[2019-03-22] MEDS: FLUoxetine HCL 20 MG CAPSULE (FP) PO SCH (10:47)
[2019-03-22] MEDS: PANTOPRAZOLE 20 MG TABLET (FP) PO SCH (10:47)
[2019-03-22] MEDS: HYDROCHLOROTHIAZIDE 12.5 MG CAPSULE (FP) PO SCH (10:47)
[2019-03-22] MEDS: AMOXICILLIN - 500 MG, AMOXICILLIN - 250 MG PO SCH (10:50)
[2019-03-22] MEDS: FLUTICASONE PROP 0.05% 16 GM NASAL SPRAY NS SCH (10:52)
--- NOTE | 2019-03-24 16:29 | PATH ---
Surgical Pathology Report Patient Name: CHAMP KEVIN Med. Rec. #: [id number] /Age/Gender: 1945 (Age: 73) / F Account: [id number] Location: [facility] MED/SURG Taken: 03/20/2019 Received: 03/21/2019 Reported: 03/24/2019 Physicians: MD Jacklyn Kelly M.D. Specimen(s) Received INCARCERATED OMENTUM Clinical History Incarcerated Spigelian Hernia Final Diagnosis INCARCERATED OMENTUM, INCARCERATED SPIGELIAN HERNIA REPAIR: OMENTAL ADIPOSE TISSUE WITH HEMORRHAGE AND REACTIVE CHANGES. Electronically Signed Jovita Bowser M.D. Gross Description Received in formalin labeled "incarcerated omentum," is a 6.5 x 5.3 x 1.0 cm aggregate of guardado-yellow portions of adipose tissue, possibly consistent with a hernia. Traffic Recorder sections are submitted in one cassette. /03/21/2019 [facility]03/21/2019
--- NOTE | 2019-03-28 18:59 | OP ---
DATE OF OPERATION: 03/20/2019 PREOPERATIVE DIAGNOSIS: Incarcerated port site (incisional hernia). POSTOPERATIVE DIAGNOSIS: Incarcerated port site (incisional hernia). PROCEDURE: Repair incarcerated port site (incisional hernia). SURGEON: Harish Morrison MD SHOP SERVICE TECHNICIAN: JULIAN Colin ANESTHESIA: General. OPERATIVE FINDINGS: There was an at least 2-cm fascial defect of a port from previous laparoscopic surgery in the left lower quadrant. This was consistent with an incarcerated hernia containing incarcerated omentum. The rest of the findings were unremarkable. DESCRIPTION OF PROCEDURE: The patient was placed on the operating table in supine position. After the induction of general anesthesia, the patient's abdomen was prepped with ChloraPrep and draped in sterile fashion. A time-out was taken, and incision was made over the previous port site incision and taken down through skin and subcutaneous tissue to the abdominal wall. The previously noted findings were observed. The sac was opened using electrocautery and the incarcerated omentum excised using electrocautery and sent for pathological examination. Nonviable muscle, fascia, and peritoneum were similarly excised using electrocautery to clean edges circumferentially. Next, the defect, which measured approximately at least 2 cm in diameter was closed with multiple 0 Vicryl [id number] sutures. The surrounding fascia was infiltrated with 0.5% Marcaine and hemostasis secured using electrocautery. The wound was copiously irrigated and hemostasis verified again. The deep space was closed with interrupted 2-0 Vicryl, the deep dermis with interrupted 3-0 Vicryl, and the skin edges with 4-0 Monocryl in a subcuticular, continuous fashion. Steri-Strips and dry, sterile dressings were placed and the procedure terminated at this point and the patient transferred to the post anesthesia care unit in stable condition awake and alert. ESTIMATED BLOOD LOSS: 15 mL. REPLACEMENTS: Crystalloid. DRAINS: None. SPECIMEN: Incarcerated omentum to Pathology. I, Harish Morrison, was physically present in the operating room from the time the patient was placed on the operating room table until she was transferred to the post anesthesia care unit in [place]. MD BRITTANY Kelly/[id number]
== END 2019-03-22 14:04 | disposition home or self-care (01) | DRG 355 ==
LOC: JER 12:28 → JERBED 20:47 → J8W 23:45
PROVIDERS: ADMIT Internal Medicine; ATTEND Family Medicine
PROC: 0WQF0ZZ Repair Abdominal Wall, Open Approach (ICD-10-PCS; principal; 2019-03-20 13:00)
DX: K43.0 Incisional hernia with obstruction, without gangrene (principal); I10 Essential (primary) hypertension; E78.5 Hyperlipidemia, unspecified; E66.9 Obesity, unspecified; Z68.34 Body mass index [BMI] 34.0-34.9, adult; E03.9 Hypothyroidism, unspecified; F41.8 Other specified anxiety disorders; R10.32 Left lower quadrant pain
CPT/HCPCS: 36415; 71045-TC-FY; 71046-TC-FY; 74177-TC; 80048; 80053; 81003; 83690; 83735; 84100; 84443; 85025; 85027; 85610; 85730; 86850; 86900; 86901; 87804; 88305-TC; 93005; 93010; 93970-TC; 94010; 94760; 97116-GP; 97161-GP; 99283-25; J0131; J1644

== ENCOUNTER 2019-03-27 11:24 | Emergency (ER) | payer MEDICARE, OTHER ==
[2019-03-27 11:32] VITALS: BP 165/86; PULSE 93; TEMP 97.8; BMI 33.5
--- NOTE | 2019-03-27 12:52 | PDOC ---
History of Present Illness - General Chief Complaint: Pain Stated Complaint: PAIN IN LT. ARM Time Seen by Provider: 03/27/19 11:40 History Source: Patient Exam Limitations: No Limitations Past History - Travel Traveled outside of the country in the last 30 days: No Close contact w/someone who was outside of country & ill: No - Past Medical History Allergies/Adverse Reactions: Allergies Allergy/AdvReac Type Severity Reaction Status Date / Time apple Allergy Intermediate ITCHY Verified 03/27/19 11:32 No Known Drug Allergies Allergy Verified 03/27/19 11:32 CHERRIES Allergy Intermediate ITCHY Uncoded 03/27/19 11:32 FISH Allergy Intermediate ITCHY Uncoded 03/27/19 11:32 Home Medications: Ambulatory Orders Fluoxetine HCl [Prozac] 20 mg PO DAILY 10/17/16 Atorvastatin Ca [Lipitor] 20 mg PO HS #30 tablet 10/20/16 Hydrochlorothiazide [Hctz -] 12.5 mg PO DAILY #30 cap 10/20/16 Levothyroxine [Synthroid -] 75 mcg PO DAILY@0700 #30 tablet 10/20/16 Omeprazole 40 mg PO DAILY 09/29/17 Acetaminophen [Tylenol Extra Strength] 1,000 mg PO Q6H #30 tablet 06/04/18 Alendronate Sodium [Fosamax] 1 tab PO WEEKLY 03/10/19 oxyCODONE HCL [Roxicodone -] 5 mg PO Q6H PRN #10 tablet MDD 4 03/10/19 Acetaminophen [Tylenol .Extra-Strength -] 1,000 mg PO Q6HPO tablet 03/22/19 Amoxicillin 875 mg PO BID #5 tablet 03/22/19 Fluticasone Prop 0.05% Nasal [Flonase -] 2 spray NS DAILY #1 inh 03/22/19 Loratadine [Claritin -] 10 mg PO DAILY #30 tablet 03/22/19 Sennosides [Senna -] 2 tab PO HS PRN #60 tablet 03/22/19 Sodium Chloride Nasal [place] [[place] Nasal [place] -] 2 spray NS TID PRN #1 bot 03/22/19 oxyCODONE HCL [Roxicodone -] 5 mg PO Q6H PRN tablet MDD 4 03/22/19 Valacyclovir HCl [Valtrex -] 1,000 mg PO TID #21 tablet 03/27/19 predniSONE [Deltasone -] 40 mg PO DAILY #8 tablet 03/27/19 Anemia: Yes Asthma: No Cancer: No Cardiac Disorders: No CVA: No COPD: No CHF: No Dementia: No Diabetes: No (hypoglycemia) GI Disorders: Yes (GASTRITIS) Disorders: Yes (nodule left kidney) HTN: Yes Hypercholesterolemia: Yes Liver Disease: No Seizures: No Thyroid Disease: Yes - Surgical History Abdominal Surgery: Yes (CYST) Appendectomy: No Cardiac Surgery: No Cholecystectomy: Yes Lung Surgery: No Neurologic Surgery: Yes Orthopedic Surgery: Yes - Immunization History Immunization Up to Date: Yes - Psycho Social/Smoking Cessation Hx Smoking Status: No Smoking History: Never smoked Have you smoked in the past 12 months: No Number of Cigarettes Smoked Daily: 0 Hx Alcohol Use: No Drug/Substance Use Hx: No Substance Use Type: None Hx Substance Use Treatment: No Review of Systems - Review of Systems Able to Perform ROS?: Yes Comments:: 03/27/19 12:43 CONSTITUTIONAL: Absent: fever, chills, diaphoresis, generalized weakness, malaise, loss of appetite MUSCULOSKELETAL: Present: R arm pain Absent: myalgia, arthralgia, joint swelling SKIN: Present: rash Absent: itching, pallor NEUROLOGIC: Absent: headache, focal weakness or paresthesias, dizziness, unsteady gait, seizure, mental status changes, bladder or bowel incontinence PSYCHIATRIC: Absent: anxiety, depression, suicidal or homicidal ideation, hallucinations. Is the patient limited Turkish proficient: No *Physical Exam - Vital Signs Last Vital Signs Temp Pulse Resp BP Pulse Ox 97.8 F 93 H 18 165/86 98 03/27/19 11:28 03/27/19 11:28 03/27/19 11:28 03/27/19 11:28 03/27/19 11:28 - Physical Exam 03/27/19 12:46 GENERAL: The patient is awake, alert, and fully oriented, in no acute distress. HEAD: Normal with no signs of trauma. EYES: Pupils equal, round and reactive to light, extraocular movements intact, sclera anicteric, conjunctiva clear. EXTREMITIES: L arm strength 5/5, sensory intact. Normal range of motion, no edema. NEUROLOGICAL: Normal speech, normal gait. PSYCH: Normal mood, normal affect. SKIN: Vesicular rash to the L shoulder C6/C7 dermatome. Warm, Dry, normal turgor, no rashes or lesions noted. Medical Decision Making - Medical Decision Making 03/27/19 12:52 The patient is a 73-year-old female who presents to the ER today with left arm pain. She states that the pain started 3 days ago. She states that she also had an injection placed by her doctor in that left arm 3 days ago. She has been taking oxycodone with some relief of her pain. Denies fevers, chills, numbness and tingling weakness the affected extremity. A/P: Shingles On exam patient with a vesicular rash to the C6-C7 dermatome. Likely the cause of patient's pain. Strength and sensory intact in the left arm. Normal range of motion. Treat with Valtrex and prednisone Discharge home to follow-up with primary care I discussed the physical exam findings, ancillary test results and final diagnoses with the patient. I answered all of the patient's questions. The patient was satisfied with the care received and felt comfortable with the discharge plan and treatment plan. The Patient agrees to follow up with the primary care physician/specialist within 24-72 hours. Return precautions were given. Discharge - Discharge Information Problems reviewed: Yes Clinical Impression/Diagnosis: Shingles Qualifiers: Herpes zoster complications: without complications Qualified Code(s): B02.9 - Zoster without complications Condition: Stable Disposition: HOME - Admission No - Follow up/Referral Referrals: Jacklyn Garrett MD [Staff Physician] - - Patient Discharge Instructions Patient Printed Discharge Instructions: DI for Shingles Additional Instructions: You have shingles. The shingles virus is what is causing your rash and arm pain. It affects the nerve that goes down your left arm. Please take the Valtrex 3 times a day for 1 week. Please take the prednisone as directed Please follow-up with your primary care doctor this week for further management of your symptoms. Return to the ER for worsening pain, fever or if you have any changes in your symptoms. Tienes viki. El virus del herpes zster es lo que est causando la erupcin cutnea y el dolor en el brazo. Afecta el nervio que baja por el brazo grzegorz. Por favor, tome el Valtrex 3 veces al da jakub 1 semana. Por favor tome la prednisona renita se indica Por favor, connor un seguimiento con hemphill mdico de atencin primaria esta semana para un mayor manejo de jacobo sntomas. Regrese a la urgencia para empeorar el dolor, la fiebre o si tiene algn cambio en los sntomas. Print Language: LATVIAN - Post Discharge Activity
== END 2019-03-27 13:32 | disposition home or self-care (01) ==
LOC: JERFT 11:24
DX: B02.9 Zoster without complications (principal); I10 Essential (primary) hypertension; E78.00 Pure hypercholesterolemia, unspecified; E03.9 Hypothyroidism, unspecified; D64.9 Anemia, unspecified; Z87.19 Personal history of other diseases of the digestive system; Z91.013 Allergy to seafood; Z88.8 Allergy status to other drugs, medicaments and biological substances
CPT/HCPCS: 99281-25

== ENCOUNTER 2019-04-03 20:20 | Emergency (ER) | payer MEDICARE, OTHER ==
[2019-04-03 20:48] VITALS: BP 132/54; PULSE 87; TEMP 97.9; BMI 31.4
[2019-04-04] MEDS ORDERED: LIDOCAINE HCL 2% JELLY (30 ML/TUBE) TP ONE (00:22)
[2019-04-04] MEDS ORDERED: LIDOCAINE HCL 2% JELLY (5 ML/TUBE) ONE (01:09)
--- NOTE | 2019-04-04 01:31 | PDOC ---
Attending Attestation - Resident Resident Name: Eladio Martinez - ED Attending Attestation I have performed the following: I have examined & evaluated the patient, The case was reviewed & discussed with the resident, I agree w/resident's findings & plan, Exceptions are as noted
--- NOTE | 2019-04-04 01:34 | PDOC ---
History of Present Illness - General Chief Complaint: Pain, Acute Stated Complaint: BACK PAIN Time Seen by Provider: 04/03/19 23:15 History Source: Patient, Old Records, Pt declined [employer] Supervisor (Primarily Fijian speaking, but conversant in Croatian. Repeatedly declined telephone lehr attendant.) Exam Limitations: No Limitations - History of Present Illness Initial Comments: HPI: 73 y/o female presenting to [facility] ER complaining of pain to left upper back and left anterior chest wall with a rash since 27 Mar 2019. Pt was diagnosed with shingles at this department on that day. She was prescribed Acyclovir and Prednisone. She also started Gabapentin as an outpatient. Reports the pain continues to be very bad. She also states that Tylenol and Motrin do not work for her. Medical Hx: gastritis, esophageal ulcer, HTN, HLD, hypothyroidism, chronic neck pain, PTSD, anxiety, and depression, s/p left oophorectomy and bilateral salpingectomy on Review of Systems: In addition to that documented in the HPI above, the additional ROS was obtained : Constitutional- Denies fevers or chills ENMT- Denies sore throat CV- Denies chest pain Resp- Denies SOB GI- Denies vomiting or diarrhea - Denies dysuria, hematuria, or urinary frequency Physical Examination: Vital signs and nursing notes reviewed. Constitutional- Well-developed, well-nourished adult female in no acute distress or obvious discomfort. Found semi-fowlers on hospital hallway stretcher. Head- Normocephalic. No obvious external signs of trauma. Cardiovascular / Chest- Regular rate and regular rhythm. No murmur, rubs, clicks , or gallops. Peripheral pulses- radial pulses full. Diffuse tenderness to anterior and posterior left sided chest velasquez. Skin- Blistered rash with multiple lesions to posterior left chest wall. Tender to palpation. No discharge. Globally, skin is warm and dry. Respiratory- Breathing unlabored. Equal chest rise and fall. Clear to auscultation bilaterally. No stridor, no wheezing, no rhonchi. Neuro- Alert and oriented x4. Moving all four extremities spontaneously. Psych- Affect- appropriate. Mood- normal. Speech was non-labored, non- pressured. MDM: 73 y/o female presenting with pain to left anterior and posterior chest velasquez in setting of recent shingles diagnosis. Afebrile. Vitals unremarkable for hypotension or tachycardia. Physical exam as described above. Suspect pain is secondary to shingle's infection. Low suspicion for overlying cellulitis infection. Ordered topical lidocaine gel. Declined Tylenol. Pt reassessed and reports the pain has improved. Will prescribe a short course of Topical Lidocaine with strict usage instructions. Encouraged continued usage of Gabapentin and OTC Tylenol. Discussed physical exam findings with pt. Answered all questions. Provided return precautions. pt expressed verbal understanding and agreement with plan to discharge home with outpatient follow up. Eladio Martinez M.D., PGY2 Emergency Medicine Resident Past History - Past Medical History Allergies/Adverse Reactions: Allergies Allergy/AdvReac Type Severity Reaction Status Date / Time apple Allergy Intermediate ITCHY Verified 03/27/19 11:32 No Known Drug Allergies Allergy Verified 03/27/19 11:32 peach Allergy Verified 04/03/19 20:48 CHERRIES Allergy Intermediate ITCHY Uncoded 03/27/19 11:32 Home Medications: Ambulatory Orders Fluoxetine HCl [Prozac] 20 mg PO DAILY 10/17/16 Atorvastatin Ca [Lipitor] 20 mg PO HS #30 tablet 10/20/16 Hydrochlorothiazide [Hctz -] 12.5 mg PO DAILY #30 cap 10/20/16 Levothyroxine [Synthroid -] 75 mcg PO DAILY@0700 #30 tablet 10/20/16 Omeprazole 40 mg PO DAILY 09/29/17 Acetaminophen [Tylenol Extra Strength] 1,000 mg PO Q6H #30 tablet 06/04/18 Alendronate Sodium [Fosamax] 1 tab PO WEEKLY 03/10/19 oxyCODONE HCL [Roxicodone -] 5 mg PO Q6H PRN #10 tablet MDD 4 03/10/19 Acetaminophen [Tylenol .Extra-Strength -] 1,000 mg PO Q6HPO tablet 03/22/19 Amoxicillin 875 mg PO BID #5 tablet 03/22/19 Fluticasone Prop 0.05% Nasal [Flonase -] 2 spray NS DAILY #1 inh 03/22/19 Loratadine [Claritin -] 10 mg PO DAILY #30 tablet 03/22/19 Sennosides [Senna -] 2 tab PO HS PRN #60 tablet 03/22/19 Sodium Chloride Nasal [place] [[place] Nasal [place] -] 2 spray NS TID PRN #1 bot 03/22/19 oxyCODONE HCL [Roxicodone -] 5 mg PO Q6H PRN tablet MDD 4 03/22/19 Ondansetron [Zofran Odt -] 4 mg SL TID #10 od.tablet 03/27/19 Valacyclovir HCl [Valtrex -] 1,000 mg PO TID #21 tablet 03/27/19 predniSONE [Deltasone -] 40 mg PO DAILY #8 tablet 03/27/19 Lidocaine 2% Jelly [Xylocaine 2% Jelly] 1 applic TP DAILY PRN #1 applic Anemia: Yes Asthma: No Cancer: No Cardiac Disorders: No CVA: No COPD: No CHF: No Dementia: No Diabetes: No (hypoglycemia) GI Disorders: Yes (GASTRITIS) Disorders: Yes (nodule left kidney) HTN: Yes Hypercholesterolemia: Yes Liver Disease: No Seizures: No Thyroid Disease: Yes - Surgical History Abdominal Surgery: Yes (CYST) Appendectomy: No Cardiac Surgery: No Cholecystectomy: Yes Lung Surgery: No Neurologic Surgery: Yes Orthopedic Surgery: Yes - Immunization History Immunization Up to Date: Yes - Psycho Social/Smoking Cessation Hx Smoking Status: No Smoking History: Never smoked Have you smoked in the past 12 months: No Number of Cigarettes Smoked Daily: 0 Hx Alcohol Use: No Drug/Substance Use Hx: No Substance Use Type: None Hx Substance Use Treatment: No *Physical Exam - Vital Signs Last Vital Signs Temp Pulse Resp BP Pulse Ox 97.9 F 87 19 132/54 L 98 04/03/19 20:43 04/03/19 20:43 04/03/19 20:43 04/03/19 20:43 04/03/19 20:43 ED Treatment Course - Medications Given in the ED: ED Medications Discontinued Medications Generic Name Dose Route Start Last Admin Trade Name Freq PRN Reason Stop Dose Admin Lidocaine HCl 1 applic 04/04/19 00:22 04/04/19 01:15 Xylocaine 2% Jelly TP 04/04/19 00:23 1 applic ONCE ONE Administration Discharge - Discharge Information Problems reviewed: Yes Clinical Impression/Diagnosis: Shingles rash Qualifiers: Herpes zoster complications: without complications Qualified Code(s): B02.9 - Zoster without complications Condition: Good Disposition: HOME - Admission No - Additional Discharge Information Prescriptions: Lidocaine 2% Jelly [Xylocaine 2% Jelly] 1 applic TP DAILY PRN #1 applic PRN Reason: Herpetic Pain - Follow up/Referral Referrals: Erasmo Srinivasan MD [Primary Care Provider] - - Patient Discharge Instructions Patient Printed Discharge Instructions: DI for Shingles Additional Instructions: Usted fue visto hoy por dolor en el hombro grzegorz probablemente debido a hemphill culebrilla. He enviado miguel receta de Lidocana tpica a hemphill farmacia. Puede usar telma medicamento miguel vez al da. Solo puede usarlo miguel vez al da. No lo ponga encima de la piel abierta. No ponga el medicamento en jacobo ojos. Lvese las lincoln despus de aplicarlo. Contine tomando Gabapentin segn lo prescrito. Puede jennifer el contador Advil / Motrin (Ibuprofeno) para el dolor. Comience tomando 400 mg cada 6 horas. Si el dolor empeora, agregue Tylenol (Acetaminofeno ) entre las dosis de Advil / Motrin (Ibuprofeno). Un horario de ejemplo es el siguiente: 12:00 pm 400 mg de ibuprofeno / Advil / Motrin 3:00 pm 1000mg Tylenol 6:00 pm 400 mg de ibuprofeno / Advil / Motrin 9:00 pm 1000mg Tylenol 12:00 am 400mg Ibuprofeno / Advil / Motrin etc. Debe hacer un seguimiento con hemphill mdico de atencin primaria en los prximos medley. Regrese al departamento de emergencias por sntomas nuevos o que empeoren. You were seen today for left shoulder pain likely from your Shingles. I have sent a prescription for topical Lidocaine to your pharmacy. You can use this medication once per day. It can only use it once per day. Do not put it on top of open skin. Do not get the medication in your eye. Wash your hands after applying it. Continue taking the Gabapentin as prescribed. You can take over the counter Advil/Motrin (Ibuprofen) for pain. Start with taking 400mg every 6 hours. If the pain becomes worse then add Tylenol ( Acetaminophen) between doses of Advil/Motrin (Ibuprofen). An example schedule is as follows: 12:00 pm 400mg Ibuprofen/Advil/Motrin 3:00 pm 1000mg Tylenol 6:00 pm 400mg Ibuprofen/Advil/Motrin 9:00 pm 1000mg Tylenol 12:00 am 400mg Ibuprofen/Advil/Motrin etc. You should follow up with your primary care doctor in the next few days. Return to the emergency department for new or worsening symptoms. Print Language: BERMUDIAN - Post Discharge Activity
== END 2019-04-04 02:06 | disposition home or self-care (01) ==
LOC: JER 20:20
DX: B02.9 Zoster without complications (principal); I10 Essential (primary) hypertension; E78.5 Hyperlipidemia, unspecified; D64.9 Anemia, unspecified; E03.9 Hypothyroidism, unspecified; Z87.19 Personal history of other diseases of the digestive system; Z91.018 Allergy to other foods; F43.10 Post-traumatic stress disorder, unspecified; F42.9 Obsessive-compulsive disorder, unspecified; Z90.79 Acquired absence of other genital organ(s); Z90.721 Acquired absence of ovaries, unilateral
CPT/HCPCS: 99281-25

== ENCOUNTER 2020-09-27 16:22 | Observation (INO) | payer MEDICARE, OTHER ==
[2020-09-27 18:38] LABS: BASO % 0.2 % (0-2.0); HEMATOCRIT 35.1 % (32.4-45.2); HEMOGLOBIN 11.7 GM/dL (10.7-15.3); LYMPH % 35.3 % (8-40); MCH 27.7 pg (25.7-33.7); MCHC 33.3 g/dl (32.0-36.0); MEAN CELL VOLUME 83.1 fl (80-96); MEAN PLT VOLUME 8.3 fl (7.5-11.1); MONO % 5.6 % (3.8-10.2); NEUT % 52.9 % (42.8-82.8); PLATELET COUNT 312 10^3/uL (134-434); RBC 4.22 M/mm3 (3.60-5.2); RDW 14.2 % (11.6-15.6); WHITE BLOOD COUNT 9.2 K/mm3 (4.0-10.0)
[2020-09-27 19:03] LABS: CHLORIDE 107 mmol/L (98-107); SODIUM 138 mmol/L (136-145)
[2020-09-27 19:05] LABS: CALCIUM 8.9 mg/dL (8.5-10.1)
[2020-09-27 19:06] LABS: ALBUMIN 3.9 g/dl (3.4-5.0); ANION GAP 8 MMOL/L (8-16); CO2 23 mmol/L (21-32); GLUCOSE,RANDOM 169 mg/dL (74-106)
[2020-09-27 19:09] LABS: CREATININE 1.6 mg/dL (0.55-1.3); SGOT/AST 45 U/L (15-37); SGPT/ALT 30 U/L (13-61)
[2020-09-27 19:10] LABS: BILIRUBIN,TOTAL 0.5 mg/dL (0.2-1)
[2020-09-27 19:11] LABS: TOT PROT 7.5 g/dl (6.4-8.2)
[2020-09-27 19:12] LABS: ALK PHOS 105 U/L (45-117)
[2020-09-27] MEDS ORDERED: ACETAMINOPHEN 500 MG TABLET (FP) PO ONE (21:42)
[2020-09-27] MEDS ORDERED: ACETAMINOPHEN 325 MG TABLET (FP) ONE (21:47)
[2020-09-27] MEDS ORDERED: ACETAMINOPHEN 1000 MG/100 ML VIAL (NON FORMULARY) IVPB ONE (21:47)
[2020-09-27] MEDS ORDERED: ACETAMINOPHEN INJECTION 100 ML IVPB ONE (21:48)
[2020-09-27] MEDS ORDERED: SODIUM CHLORIDE 0.9% 500 ML INFUS.BAG IV ONE (21:48)
[2020-09-28 01:44] VITALS: BMI 31.4
[2020-09-28] MEDS ORDERED: ACETAMINOPHEN 1000 MG/100 ML VIAL (NON FORMULARY) IVPB PRN (07:57)
[2020-09-28 08:26] LABS: EOS % 6.4 % (0-4.5); HEMATOCRIT 34.8 % (32.4-45.2); HEMOGLOBIN 11.6 GM/dL (10.7-15.3); LYMPH % 44.9 % (8-40); MCH 27.7 pg (25.7-33.7); MCHC 33.3 g/dl (32.0-36.0); MEAN CELL VOLUME 83.1 fl (80-96); MEAN PLT VOLUME 8.4 fl (7.5-11.1); MONO % 6.2 % (3.8-10.2); NEUT % 41.5 % (42.8-82.8); PLATELET COUNT 299 10^3/uL (134-434); RBC 4.19 M/mm3 (3.60-5.2); WHITE BLOOD COUNT 8.5 K/mm3 (4.0-10.0)
[2020-09-28 08:43] LABS: CALCIUM 8.5 mg/dL (8.5-10.1)
[2020-09-28 08:44] LABS: BLOOD UREA NITROGEN 16.7 mg/dL (7-18)
[2020-09-28 08:47] LABS: CREATININE 1.3 mg/dL (0.55-1.3)
[2020-09-28] MEDS: PANTOPRAZOLE SODIUM 40 MG VIAL IVPUSH SCH ×2 (10:28→21:18)
[2020-09-28] MEDS ORDERED: POLYETHYLENE GLYCOL (HEALTHYLAX) 3350 17 GM PACKET PO SCH (22:00)
[2020-09-29 05:39] VITALS: BP 118/58; PULSE 74; TEMP 98.5
[2020-09-29] MEDS ORDERED: LEVOTHYROXINE NA 75 MCG TABLET (FP) PO SCH (07:00)
[2020-09-29 08:03] LABS: HEMATOCRIT 32.3 % (32.4-45.2); HEMOGLOBIN 10.7 GM/dL (10.7-15.3); MCH 27.8 pg (25.7-33.7); MEAN PLT VOLUME 8.6 fl (7.5-11.1); PLATELET COUNT 290 10^3/uL (134-434); RBC 3.84 M/mm3 (3.60-5.2); RDW 13.9 % (11.6-15.6); WHITE BLOOD COUNT 7.8 K/mm3 (4.0-10.0)
[2020-09-29 08:12] LABS: CALCIUM 8.4 mg/dL (8.5-10.1)
[2020-09-29 08:15] LABS: CREATININE 1.3 mg/dL (0.55-1.3)
== END 2020-09-29 11:08 | disposition home or self-care (01) ==
LOC: JER 16:22 → JERBED 22:32 → J7W 09-28 00:18
PROVIDERS: ADMIT Hospitalist; ATTEND Family Medicine
PROC: 3E033NZ Introduction of Analgesics, Hypnotics, Sedatives into Peripheral Vein, Percutaneous Approach (ICD-10-PCS; principal; 2020-09-27)
PROC: 3E033GC Introduction of Other Therapeutic Substance into Peripheral Vein, Percutaneous Approach (ICD-10-PCS; 2020-09-27)
DX: K62.5 Hemorrhage of anus and rectum (principal); R10.32 Left lower quadrant pain; I10 Essential (primary) hypertension; E78.5 Hyperlipidemia, unspecified; E03.9 Hypothyroidism, unspecified; M54.2 Cervicalgia; M54.9 Dorsalgia, unspecified; G89.29 Other chronic pain; F43.10 Post-traumatic stress disorder, unspecified; F41.9 Anxiety disorder, unspecified; F32.9 Major depressive disorder, single episode, unspecified; Z91.018 Allergy to other foods; M25.572 Pain in left ankle and joints of left foot; M25.571 Pain in right ankle and joints of right foot; M72.2 Plantar fascial fibromatosis
CPT/HCPCS: 36415; 73630-TC-LT; 73630-TC-RT-FY; 74176-TC; 80048; 80053; 82272; 82550; 82553; 83605; 84484; 85025; 85027; 93005; 93010; 96374; 96375; 96376; 99285-25; C9803; G0378; J0131; U0003; U0005